=== PATIENT | female | born 1955 | race Caucasian/White ===

== ENCOUNTER 2020-09-03 11:55 | Outpatient (REF) | payer OTHER, SELFPAY ==
--- NOTE | ~2020-09-03 | MM_ITS ---
EXAMINATION: MM SCREENING DIGITAL BREAST TOMOSYNTHESIS, BILATERAL CLINICAL INFORMATION: Screening. Asymptomatic. The lifetime risk of breast cancer based on the Tyrer-Cuzick Model is 14%. COMPARISON: Mammography: 12/27/2018, 05/12/2016 TECHNIQUE: Digital breast tomosynthesis is performed in both the craniocaudal and mediolateral oblique views along with computer-aided detection (CAD). Synthesized 2D images are generated from the tomosynthesis. FINDINGS: There are scattered areas of fibroglandular density (ACR BI-RADS breast composition Category b). There are no significant masses, abnormal calcifications, or other abnormalities. Parenchymal pattern is similar to prior exams. Again, there are scattered bilateral isolated and grouped round, rim, and dermal calcifications. No significant changes. MM/MM tomosynthesis screening BI IMPRESSION: No mammographic evidence of malignancy. ASSESSMENT: BI-RADS 2: Benign RECOMMENDATION: Routine annual mammography screening. This patient's information was entered into a reminder system with a target due date for their next mammogram.
== END 2020-09-03 11:56 | disposition home or self-care (01) ==
LOC: HO.MAMMO 11:55
PROVIDERS: Visit Provider Internal Medicine
DX: Z12.31 Encounter for screening mammogram for malignant neoplasm of breast (principal)
CPT/HCPCS: 77063; 77067

== ENCOUNTER 2021-04-22 09:02 | Outpatient (REF) | payer OTHER, SELFPAY ==
[2021-04-26 13:41] LABS: HPV mRNA E6/E7 rflx Not Detected (Not Detected)
== END 2021-04-22 09:03 | disposition home or self-care (01) ==
LOC: HO.LAB 09:02
PROVIDERS: PCP Internal Medicine; Visit Provider Obstetrics & Gynecology
DX: Z01.419 Encounter for gynecological examination (general) (routine) without abnormal findings (principal); Z11.51 Encounter for screening for human papillomavirus (HPV)
CPT/HCPCS: 87624; 88142

== ENCOUNTER 2022-01-01 07:40 | Outpatient (REF) | payer OTHER, SELFPAY ==
--- NOTE | ~2022-01-01 | MM_ITS ---
EXAMINATION: MM SCREENING DIGITAL BREAST TOMOSYNTHESIS, BILATERAL CLINICAL INFORMATION: Screening. Asymptomatic. The lifetime risk of breast cancer based on the Tyrer-Cuzick Model is 16.5%. COMPARISON: Mammography: September 03, 2020 and studies dating back to November 09, 2011 TECHNIQUE: Digital breast tomosynthesis is performed in both the craniocaudal and mediolateral oblique views along with computer-aided detection (CAD). Synthesized 2D images are generated from the tomosynthesis. FINDINGS: There are scattered areas of fibroglandular density (ACR BI-RADS breast composition Category b). There are no significant masses, abnormal calcifications, or other abnormalities. MM/MM tomosynthesis screening BI IMPRESSION: There are no significant changes from prior study. ASSESSMENT: BI-RADS 1: Negative RECOMMENDATION: Routine annual mammography screening. This patient's information was entered into a reminder system with a target due date for their next mammogram.
== END 2022-01-01 07:41 | disposition home or self-care (01) ==
LOC: HO.MAMMO 07:40
PROVIDERS: Absent Provider Obstetrics & Gynecology; PCP Physician Assistant Medical; Visit Provider Physician Assistant Medical
DX: Z12.31 Encounter for screening mammogram for malignant neoplasm of breast (principal)
CPT/HCPCS: 77063; 77067

== ENCOUNTER 2023-01-07 07:21 | Outpatient (REF) | payer MEDICARE, SELFPAY ==
--- NOTE | ~2023-01-07 | MM_ITS ---
EXAMINATION: MM SCREENING DIGITAL BREAST TOMOSYNTHESIS, BILATERAL CLINICAL INFORMATION: Screening. Asymptomatic. The lifetime risk of breast cancer based on the Tyrer-Cuzick Model is 17%. COMPARISON: Mammography: This study is compared with prior exams dating back to 2019. TECHNIQUE: Digital breast tomosynthesis is performed in both the craniocaudal and mediolateral oblique views along with computer-aided detection (CAD). Synthesized 2D images are generated from the tomosynthesis. FINDINGS: There are scattered areas of fibroglandular density (ACR BI-RADS breast composition Category b). There are no significant masses, abnormal calcifications, or other abnormalities. Scattered benign calcifications present. MM/MM tomosynthesis screening BI IMPRESSION: No mammographic evidence of malignancy. ASSESSMENT: BI-RADS BI-RADS 2 - Benign Findings RECOMMENDATION: Routine annual mammography screening. 1 year F/U This patient's information was entered into a reminder system with a target due date for their next mammogram.
== END 2023-01-07 07:22 | disposition home or self-care (01) ==
LOC: HO.MAMMO 07:21
PROVIDERS: PCP Physician Assistant Medical; Visit Provider Physician Assistant Medical
DX: Z12.31 Encounter for screening mammogram for malignant neoplasm of breast (principal)
CPT/HCPCS: 77063; 77067

== ENCOUNTER → 2023-01-07 07:30 | Outpatient (BNV) | payer MEDICARE, SELFPAY | PROVIDERS: PCP Physician Assistant Medical; Visit Provider Radiology Diagnostic Radiology | DX: Z12.31 Encounter for screening mammogram for malignant neoplasm of breast (principal) | CPT/HCPCS: 77063; 77067 ==

== ENCOUNTER 2023-06-21 07:52 | Outpatient (AMB) | payer MEDICARE, SELFPAY ==
--- NOTE | 2023-06-21 08:04 | MHC.OFFVIS ---
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 No complaints. Last Pap/HPV was negative in 05/01 Last Mammogram was BI-RADS 2 in 01/01 Last Colonoscopy was 3 years ago, the patient is due this year for repeat screening colonoscopy No previous DEXA scan PFS Medical History Acute arthritis Fluttering heart Hypertension Obesity Diabetes type 2, controlled Surgical History (Updated 06/21/23 @ 08:14 by Kari Wang CMA) History of hip surgery History of bilateral knee replacement H/O cervical spine surgery Family History (Updated 06/21/23 @ 08:11 by Kari Wang CMA) Mother Breast CA Diabetes HTN (hypertension) Paternal Grandmother Breast CA Social History (Updated 06/21/23 @ 08:12 by Kari Wang CMA) Household Members: Spouse Housing: House Alcohol intake: never Patient Tobacco Use Status: Current someday Tobacco user Cigarettes Per Day: 10 Years Smoked: 35 Current occupational status: retired Sexually active: Yes Sexual orientation: Straight/Heterosexual Gender identity: Female Female Reproductive History Menstrual Age of Menarche: 15 Total pregnancies: 0 Date of last pap smear: 04/23/21 Date of Mammogram: 01/07/23 Review of Systems Const All systems reviewed & are unremarkable except as noted in HPI and below Card Reports as per HPI Resp Reports as per HPI GI Reports as per HPI and Reports no additional complaints Reports as per HPI Physical Exam Vital Signs: Last Vital Signs BP 142/82 H 06/21/23 08:07 BMI result Body Mass Index 39.4 Const General: cooperative, healthy appearing and comfortable Chest Chest palpation & inspection: normal inspection of the chest and normal palpation of entire chest wall Breast/axilla inspection: normal inspection of the breasts and normal inspection of the axillae Breast/axilla palpation: normal palpation of the breasts, normal palpation of the axillae and no axillary lymphadenopathy Resp Effort & Inspection: normal respiratory effort Auscultation: clear to auscultation bilaterally Percussion: percussion normal Cardio Palpation: normal PMI Rate: regular rate Rhythm: regular rhythm Heart sounds: no murmurs and no rubs Peripheral pulses: Peripheral pulses 2+ throughout GI Inspection: Yes normal to inspection Palpation (GI): Soft to palpation, nontender, no guarding, not rigid and No hepatosplenomegaly present Percussion: Yes normal to percussion Auscultation: normal bowel sounds Rectal Exam - Female: deferred General: Yes bladder normal to palpation External Female Exam: No lesion Speculum Exam - Vagina: normal appearance of the vagina, normal palpation, normal vaginal discharge and not erythematous Speculum Exam - Cervix: normal appearance of the cervix and normal palpation Bimanual exam- vagina & uterus: normal bimanual exam, normal palpation, uterine size normal, bladder normal to palpation, consistency normal and normal palpation Bimanual Exam- Adnexa, other: normal adnexae, no masses and no tenderness Assessment & Plan Assessment & Plan (1) Well woman exam: Code(s): Z01.419 - Encounter for gynecological examination (general) (routine) without abnormal findings Plan: Co testing not indicated since the patient 's age is above 65 with no history of abnormal Pap smears last 25 years. Counseled the patient about the recommended dietary allowance of 1200 mg of Calcium & 800 IU of vitamin D. Instructed the patient to schedule next screening Mammogram in 01/02. Instructed the patient to schedule her next screening colonoscopy narciso. Will order DEXA scan . The patient was instructed to perform monthly self-breast exams and to schedule a 2 week DEXA scan follow-up appointment and an annual exam in a year; All questions answered and the patient verbalized understanding. Orders: Orders XR DEXA axial skeleton Today Z78.0 - Asymptomatic menopausal state Coding Level of Care Code Est Pt Prev Care 40-64y(15735) Diagnoses Well woman exam Z01.419
[2023-06-21 08:07] VITALS: BP 142/82; BMI 39.4
== END 2023-06-21 08:27 | disposition home or self-care (01) ==
PROVIDERS: Visit Provider Obstetrics & Gynecology
DX: Z01.419 Encounter for gynecological examination (general) (routine) without abnormal findings (principal)
CPT/HCPCS: 99397

== ENCOUNTER → 2023-06-21 07:52 | Outpatient (BNVA) | payer OTHER, SELFPAY | PROVIDERS: Visit Provider Obstetrics & Gynecology ==

== ENCOUNTER 2023-07-13 09:29 | Outpatient (REF) | payer MEDICARE, SELFPAY ==
--- NOTE | ~2023-07-13 | MM_ITS ---
EXAMINATION: BONE DENSITOMETRY CLINICAL INDICATION: Menopause. COMPARISON: This is the patient's baseline examination. TECHNIQUE: Using a [employer] DXA System (software version: 13.1) manufactured by [employer], dual-energy x-ray absorptiometry was performed of the lumbar spine and left hip. The images are of good technical quality. Summary results are attached. FINDINGS: LEFT FEMUR, NECK: BMD 0.956 g/cm2, Z-score 0.2, T-score -0.6, normal. LEFT FEMUR, TOTAL: BMD 1.122 g/cm2, Z-score 1.3, T-score 0.9, normal. AP SPINE L1-L2 (excluding L3 and L4): The data of L1-L4 has been changed to exclude the L3 and L4 vertebral bodies, because degenerative sclerosis at these levels may cause overestimation of lumbar spine density. BMD 1.247 g/cm2, Z-score 1.1, T-score 0.7, normal. IDENTIFIED RISK FACTORS: Menopause, tobacco use (current smoker). HISTORY OF FRACTURE: None listed. MEDICATIONS: Multivitamin, vitamin D, bisphosphonate. MM/XR DEXA axial skeleton IMPRESSION: 1. DIAGNOSIS: Normal bone density based on the lowest T-score value of -0.6 in the femoral neck applying World Health Organization criteria. 2. 10-YEAR FRACTURE RISK PREDICTION, FRAX: According to the guidelines, FRAX calculation should only be performed on patients in the osteopenia bone density category. Therefore, FRAX was not performed on this patient. 3. Treatment Recommendations: NOF guidelines recommend consideration for treatment in postmenopausal women and men age 50 and older presenting with the following: -A hip or vertebral (clinical or morphometric) fracture. -T-score less than or equal to -2.5 at the femoral neck or spine after appropriate evaluation to exclude secondary causes. -Low bone mass at the hip or spine and a 10-year fracture probability by FRAX of greater than or equal to 3% for hip fracture or greater than or equal to 20% for major osteoporotic fracture based on the [place] adapted WHO algorithm. 4. Other Recommendations: All treatment decisions require clinical judgment and consideration of individual patient factors, including patient preferences, comorbidities, previous drug use, risk factors not captured in the FRAX model (e.g. frailty, falls, vitamin D deficiency, increased bone turnover, interval significant decline in bone density) and possible under or overestimation of fracture risk by FRAX. FUTURE SCAN RECOMMENDATION: People with diagnosed cases of osteoporosis or at high risk for fracture should have regular bone mineral density tests. For patients eligible for Medicare, routine testing is allowed once every 2 years. The testing frequency can be increased to one year for patients who have rapidly progressing disease, those who are receiving or discontinuing medical therapy to restore bone mass, or have additional risk factors.
== END 2023-07-13 09:30 | disposition home or self-care (01) ==
LOC: HO.MAMMO 09:29
PROVIDERS: PCP Physician Assistant Medical; Visit Provider Obstetrics & Gynecology
DX: Z13.820 Encounter for screening for osteoporosis (principal); Z78.0 Asymptomatic menopausal state
CPT/HCPCS: 77080

== ENCOUNTER 2023-08-11 09:29 | Outpatient (AMB) | payer MEDICARE, SELFPAY ==
--- NOTE | 2023-08-11 09:30 | MHC.OFFVIS ---
Intake Vital Signs 08/11/23 09:32 Height 5 ft 5 in Weight 235 lb 14.314 oz BMI 39.3 BP 146/80 H Intake Visit Reasons: DEXA follow up Allergies No Known Allergies Allergy (Verified 06/21/23 08:08) HPI HPI Comments History of Present Illness Details The patient is presenting for follow up regarding DEXA scan results. T score @ spine and femoral Neck respectively were=NA due to degenerative disease /-0.6 and 10 year FRAX risk = was not calculated PFSH Medical History Acute arthritis Fluttering heart Hypertension Obesity Diabetes type 2, controlled Surgical History History of hip surgery History of bilateral knee replacement H/O cervical spine surgery Family History Mother Breast CA Diabetes HTN (hypertension) Paternal Grandmother Breast CA Social History Household Members: Spouse Housing: House Alcohol intake: never Patient Tobacco Use Status: Current someday Tobacco user Cigarettes Per Day: 10 Years Smoked: 35 Current occupational status: retired Sexual orientation: Straight/Heterosexual Gender identity: Female Female Reproductive History Menstrual Age of Menarche: 15 Review of Systems Const All systems reviewed & are unremarkable except as noted in HPI and below Reports as per HPI and Reports no additional complaints GI Reports no additional complaints Reports no additional complaints Physical Exam Vital Signs: Last Vital Signs BP 146/80 H 08/11/23 09:32 BMI result Body Mass Index 39.3 Assessment & Plan Assessment & Plan (1) Osteopenia: Code(s): M85.80 - Other specified disorders of bone density and structure, unspecified site Plan: Discussed with the patient the DEXA results showed no evidence of osteoporosis although at the spine level due to degenerative disease T-score was not calculated therefore the FRAX risk was not computer. Discussed with the patient all the options for osteoporosis prevention including lifestyle modifications including Ca+D supplements 1200 mg po qd/800 MIU, Weight bearing exercises and proteine supplements. The patient verbalized understanding and agreed plan will repeat DEXA in 2 years. Coding Level of Care Code Est Pt Level 3 (02366) Diagnoses Osteopenia M85.80
[2023-08-11 09:32] VITALS: BP 146/80; BMI 39.3
== END 2023-08-11 09:53 | disposition home or self-care (01) ==
PROVIDERS: PCP Physician Assistant Medical; Visit Provider Obstetrics & Gynecology
DX: M85.80 Other specified disorders of bone density and structure, unspecified site (principal)
CPT/HCPCS: 99213

== ENCOUNTER → 2023-08-11 09:29 | Outpatient (BNVA) | payer MEDICARE, SELFPAY | PROVIDERS: PCP Physician Assistant Medical; Visit Provider Obstetrics & Gynecology | DX: M85.80 Other specified disorders of bone density and structure, unspecified site (principal) | CPT/HCPCS: 99212 ==

== ENCOUNTER 2023-10-04 13:13 | Outpatient (AMB) | payer MEDICARE, SELFPAY ==
[2023-10-04 13:28] VITALS: PULSE 91; O2SAT 95; BMI 40.1
--- NOTE | 2023-10-04 13:28 | MHC.OFFVIS ---
Intake Vital Signs 10/04/23 13:28 Height 5 ft 5 in Weight 241 lb BMI 40.1 Pulse 91 Pulse Source Pulse Oximeter Pulse Oximetry (%) 95 Oxygen Delivery Method Room Air Intake Visit Reasons: Cough Bed Setter Required: No Allergies No Known Allergies Allergy (Verified 10/04/23 13:30) HPI HPI Comments History of Present Illness Details The patient is here for pulmonary evaluation. 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 The patient states that she was in her usual state health until back in 2019 when she was exposed to a viral syndrome. She felt like she had the initial COVID-19 although was not diagnosed that time. The patient has 2 that still continued to have a productive cough shortness of breath. Moderate severity. She has tried multiple inhalers without any significant improvement. Denies any other exposures. She is participating in the lung cancer screening program. We did look at her last CT scan those done back in 2022. The patient has multiple pulmonary nodules appear to be benign appearing subcentimeter in size. Does have some minimal emphysema and some evidence of chronic bronchitis and mucus within the airways. Explained to her she has chronic bronchitis and likely precipitated by the viral syndrome and by her years of smoking. She has quit in the past. Although she has not ready to quit right now. Also to note the patient did have pulmonary function studies which I personally reviewed no evidence of any obstruction appreciated her PFT though although she does have evidence of chronic bronchitis and COPD. [facility] Medical History (Updated 10/05/23 @ 08:20 by Lance Hughes MD) Tobacco dependence Pulmonary nodules COPD (chronic obstructive pulmonary disease) Chronic bronchitis Acute arthritis Fluttering heart Hypertension Obesity Diabetes type 2, controlled Surgical History History of hip surgery History of bilateral knee replacement H/O cervical spine surgery Family History Mother Breast CA Diabetes HTN (hypertension) Paternal Grandmother Breast CA Social History Household Members: Spouse Housing: House Alcohol intake: never Patient Tobacco Use Status: Current someday Tobacco user Cigarettes Per Day: 10 Years Smoked: 35 Current occupational status: retired Sexual orientation: Straight/Heterosexual Gender identity: Female Female Reproductive History Menstrual Age of Menarche: 15 Review of Systems Const Denies fever(s) Eyes Reports no additional complaints ENT Reports nasal congestion Card Denies chest pain Resp Reports change in phlegm color, Reports chest congestion, Reports cough and Denies hemoptysis GI Denies abdominal pain Musc Reports no additional complaints Skin/Breast Denies rash Neuro Reports no additional complaints Eddie/Lymph Denies easy bruising Physical Exam Vital Signs: Last Vital Signs Pulse 91 10/04/23 13:28 Pulse Ox 95 10/04/23 13:28 Oxygen Delivery Method Room Air 10/04/23 13:28 BMI result Body Mass Index 40.1 Const General: comfortable HEENT Head: Yes normocephalic Neck Neck: Yes supple Chest Chest palpation & inspection: normal inspection of the chest Resp Effort & Inspection: normal respiratory effort and prolonged expiratory phase Auscultation: rhonchi Cardio Heart sounds: S1 normal heart sound present and S2 normal heart sound present GI Palpation (GI): Soft to palpation Skin General skin exam: no rashes or lesions noted Extrem General: Yes no clubbing, cyanosis or edema Assessment & Plan Assessment & Plan (1) COPD (chronic obstructive pulmonary disease): Code(s): J44.9 - Chronic obstructive pulmonary disease, unspecified Qualifiers: COPD type: chronic bronchitis Chronic bronchitis type: mixed simple and mucopurulent Qualified Code(s): J41.8 - Mixed simple and mucopurulent chronic bronchitis (2) Chronic bronchitis: Code(s): J42 - Unspecified chronic bronchitis Qualifiers: Chronic bronchitis type: mixed simple and mucopurulent Qualified Code(s): J41.8 - Mixed simple and mucopurulent chronic bronchitis (3) Pulmonary nodules: Code(s): R91.8 - Other nonspecific abnormal finding of lung field (4) Tobacco dependence: Code(s): F17.200 - Nicotine dependence, unspecified, uncomplicated Plan start nebulizer BID with albuterol CPT with acapella valve start Azithromycin MWF x 6-8 weeks, then stop [place]CT [place] [facility] [place] Sputum culture F/U 2-3 months Orders: Orders Sputum Cult + Gram stain 10/04/23 J42 - Unspecified chronic bronchitis Medications: New azithromycin Take 1 tablet on Wednesday/Wednesday/Wednesday 250 mg PO 3XW 28 days 12 tabs 1RF K21.9 - Gastro-esophageal reflux disease without esophagitis albuterol sulfate 2.5 mg (3 mL) inhalation Q6H 30 days 180 mL 11RF J44.9 - Chronic obstructive pulmonary disease, unspecified Coding Level of Care Code New Pt Level 4 (18847) Diagnoses Mixed simple and mucopurulent chronic bronchitis J41.8 COPD type: chronic bronchitis Chronic bronchitis type: mixed simple and mucopurulent Mixed simple and mucopurulent chronic bronchitis J41.8 Chronic bronchitis type: mixed simple and mucopurulent Pulmonary nodules R91.8 Tobacco dependence F17.200 Time Spent (min) 40
== END 2023-10-04 14:12 | disposition home or self-care (01) ==
PROVIDERS: PCP Nurse Practitioner; Visit Provider Hospitalist
DX: J41.8 Mixed simple and mucopurulent chronic bronchitis (principal); R91.8 Other nonspecific abnormal finding of lung field; F17.200 Nicotine dependence, unspecified, uncomplicated
CPT/HCPCS: 99204

== ENCOUNTER → 2023-10-04 13:13 | Outpatient (BNVA) | payer MEDICARE, SELFPAY | PROVIDERS: PCP Physician Assistant Medical; Visit Provider Hospitalist | DX: J41.8 Mixed simple and mucopurulent chronic bronchitis (principal); R91.8 Other nonspecific abnormal finding of lung field; F17.210 Nicotine dependence, cigarettes, uncomplicated | CPT/HCPCS: 99202 ==

== ENCOUNTER 2024-01-10 07:31 | Outpatient (REF) | payer MEDICARE, SELFPAY | END 2024-01-10 07:32 | disposition home or self-care (01) | LOC: HO.MAMMO 07:31 | PROVIDERS: PCP Nurse Practitioner; Visit Provider Nurse Practitioner | DX: Z12.31 Encounter for screening mammogram for malignant neoplasm of breast (principal) | CPT/HCPCS: 77063; 77067; 99212 ==

== ENCOUNTER → 2024-01-10 07:45 | Outpatient (BNV) | payer MEDICARE, SELFPAY | PROVIDERS: PCP Nurse Practitioner; Visit Provider Radiology Diagnostic Radiology | DX: Z12.31 Encounter for screening mammogram for malignant neoplasm of breast (principal) | CPT/HCPCS: 77063; 77067 ==

== ENCOUNTER 2024-01-10 08:38 | Outpatient (AMB) | payer MEDICARE, SELFPAY ==
[2024-01-10 08:52] VITALS: PULSE 84; O2SAT 96; BMI 39.9
--- NOTE | 2024-01-10 08:52 | MHC.OFFVIS ---
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 The patient states that she was in her usual state health until back in 2019 when she was exposed to a viral syndrome. She felt like she had the initial COVID-19 although was not diagnosed that time. The patient has 2 that still continued to have a productive cough shortness of breath. Moderate severity. She has tried multiple inhalers without any significant improvement. Denies any other exposures. She is participating in the lung cancer screening program. We did look at her last CT scan those done back in 2022. The patient has multiple pulmonary nodules appear to be benign appearing subcentimeter in size. Does have some minimal emphysema and some evidence of chronic bronchitis and mucus within the airways. Explained to her she has chronic bronchitis and likely precipitated by the viral syndrome and by her years of smoking. She has quit in the past. Although she has not ready to quit right now. Also to note the patient did have pulmonary function studies which I personally reviewed no evidence of any obstruction appreciated her PFT though although she does have evidence of chronic bronchitis and COPD. 01/10/2024 the patient is here for a pulmonary follow-up visit. The patient overall has been doing fairly well. She does complain of productive cough. She did take the azithromycin for a period of time but she had to stop because of significant diarrhea. Therefore she continues to have a chest congestion. She is also using a nebulizer. She also has a rescue inhaler. The patient is agreeable to starting Wixela. She can just use it once a day. She not be too expensive. She is concerned about the cough. In addition to that she is wondering about using Mucinex for chronic bronchitis. I did suggest that she can try Daliresp. We can start her small dose to see if the GI symptoms are not too bad and then she can develops intolerance. The patient is also working her smoking. She is cutting down. She has participating in the lung cancer screening program which is due for her sometime in the spring at [facility]. [facility] Medical History (Updated 10/05/23 @ 08:20 by Lance Hughes MD) Tobacco dependence Pulmonary nodules COPD (chronic obstructive pulmonary disease) Chronic bronchitis Acute arthritis Fluttering heart Hypertension Obesity Diabetes type 2, controlled Surgical History History of hip surgery History of bilateral knee replacement H/O cervical spine surgery Family History Mother Breast CA Diabetes HTN (hypertension) Paternal Grandmother Breast CA Social History Household Members: Spouse Housing: House Alcohol intake: never Patient Tobacco Use Status: Current someday Tobacco user Cigarettes Per Day: 10 Years Smoked: 35 Current occupational status: retired Sexual orientation: Straight/Heterosexual Gender identity: Female Female Reproductive History Menstrual Age of Menarche: 15 Review of Systems Const Denies fever(s) Eyes Reports no additional complaints ENT Reports nasal congestion Card Denies chest pain Resp Reports change in phlegm color, Reports chest congestion, Reports cough and Denies hemoptysis GI Denies abdominal pain Musc Reports no additional complaints Skin/Breast Denies rash Neuro Reports no additional complaints Eddie/Lymph Denies easy bruising Physical Exam Vital Signs: Last Vital Signs Pulse 84 01/10/24 08:52 Pulse Ox 96 01/10/24 08:52 Oxygen Delivery Method Room Air 01/10/24 08:52 BMI result Body Mass Index 39.9 Const General: comfortable HEENT Head: Yes normocephalic Neck Neck: Yes supple Chest Chest palpation & inspection: normal inspection of the chest Resp Effort & Inspection: normal respiratory effort and prolonged expiratory phase Auscultation: no rhonchi and diminished lung sounds Cardio Heart sounds: S1 normal heart sound present and S2 normal heart sound present GI Palpation (GI): Soft to palpation Skin General skin exam: no rashes or lesions noted Extrem General: Yes no clubbing, cyanosis or edema Assessment & Plan Assessment & Plan (1) COPD (chronic obstructive pulmonary disease): Code(s): J44.9 - Chronic obstructive pulmonary disease, unspecified Category: Medical Qualifiers: COPD type: chronic bronchitis Chronic bronchitis type: mixed simple and mucopurulent Qualified Code(s): J41.8 - Mixed simple and mucopurulent chronic bronchitis (2) Chronic bronchitis: Code(s): J42 - Unspecified chronic bronchitis Category: Medical Qualifiers: Chronic bronchitis type: mixed simple and mucopurulent Qualified Code(s): J41.8 - Mixed simple and mucopurulent chronic bronchitis (3) Pulmonary nodules: Code(s): R91.8 - Other nonspecific abnormal finding of lung field Category: Medical (4) Tobacco dependence: Code(s): F17.200 - Nicotine dependence, unspecified, uncomplicated Category: Medical Plan nebulizer BID with albuterol CPT with acapella valve stopped Azithromycin MWF due to adverse effects start Daliresp start Wixela daily *rinse* Mucinex OTC as needed LDCT at [facility] [place] spring 2024 F/U 4-6 months Medications: New roflumilast (Daliresp) 250 mcg PO DAILY 30 days 30 tabs 11RF J44.9 - Chronic obstructive pulmonary disease, unspecified fluticasone propion-salmeterol 250-50 mcg/dose (Wixela Inhub) 1 inh inhalation Q12H 90 days 3 ea 3RF Coding Level of Care Code Est Pt Level 4 (82104) Diagnoses Mixed simple and mucopurulent chronic bronchitis J41.8 COPD type: chronic bronchitis Chronic bronchitis type: mixed simple and mucopurulent Mixed simple and mucopurulent chronic bronchitis J41.8 Chronic bronchitis type: mixed simple and mucopurulent Pulmonary nodules R91.8 Tobacco dependence F17.200 Time Spent (min) 16
== END 2024-01-10 09:34 | disposition home or self-care (01) ==
PROVIDERS: PCP Nurse Practitioner; Visit Provider Hospitalist
DX: J41.8 Mixed simple and mucopurulent chronic bronchitis (principal); R91.8 Other nonspecific abnormal finding of lung field; F17.200 Nicotine dependence, unspecified, uncomplicated
CPT/HCPCS: 99214

== ENCOUNTER 2024-06-27 07:56 | Outpatient (AMB) | payer MEDICARE, SELFPAY ==
--- OUTSIDE RECORDS SUMMARY | 2024-06-27 07:59 | XMS_ITS | Continuity of Care Document ---
Author Organization [facility] Address [address] [place] [address]- Care Team Providers Care Manager Ems Name Role Phone Yuriy GOMEZ, Tramaine Anthony Primary Care Physician Encounter [facility] [place] Date(s): 05/10/24 - 06/09/24 [facility] [address] [place] [address]- Attending Physician: Rhea Barrett Admitting Physician: Rhea Barrett Referring Physician: AdmtrRhea Encounter Type: Triage Allergies, Adverse Reactions, Alerts No Known Allergies Medications acetaminophen 325 mg oral tablet 650 mg, By Mouth, Every 6 hours, May take OTC not to exceed 3000 mg/day, Refills 0, Maintenance, 04/06/23 9:36:00 AM EDT, Partial fill upon patient request if the prescription is for a schedule II opioid drug. Start Date: 04/06/23 Status: Ordered Repeat number: 1 acetaminophen-hydrocodone 325 mg-10 mg oral tablet 1 tablet, By Mouth, Every 6 hours, PRN as needed for pain, for 7 days, # 28 tablet, 0 Refills, Acute 06/14/24 3:47:00 PM EST, 06/07/24 3:47:00 PM EST, Tablet, [id number], Partial fill upon patient request if the prescription is for a schedule II opioid drug., 1 tablet By Mouth Every 6 hours,x7 days,PRN:as needed for pain, 165.1, cm, 06/07/24 14:47:00 EST, Height, 109, kg, 06/07/24 14:47:00EST, Dry Weight Start Date: 06/07/24 Stop Date: 06/14/24 Status: Ordered Quantity: 28.0 Unit: tablet Repeat number: 1 amitriptyline 50 mg oral tablet 1 tablet = 50 mg, By Mouth, Daily at bedtime, 0 Refills, Maintenance, 07/28/22 7:38:00 AM EST, Partial fill upon patient request if the prescription is for a schedule II opioid drug. Start Date: 07/28/22 Status: Ordered Repeat number: 1 atorvastatin 10 mg oral tablet 1 tablet = 10 mg, By Mouth, Daily, TAKE 1 TABLET BY MOUTH EVERYDAY AT BEDTIME Start Date: 10/07/22 Status: Ordered Repeat number: 1 Colace sodium 100 mg oral capsule See Instructions, 1 capsule By Mouth 2 times a day, Refills 0, Maintenance, 04/05/23 10:38:00 AM EDT, Instructions Replace Required Details, Partial fill upon patient request if the prescription is for a schedule II opioid drug. Start Date: 04/05/23 Status: Ordered Repeat number: 1 lidocaine 4% patch Topically, Daily, 0 Refills, Maintenance, 04/20/24 9:05:00 AM EDT, Partial fill upon patient request if the prescription is for a schedule II opioid drug. Start Date: 04/20/24 Status: Ordered Repeat number: 1 lisinopril 10 mg oral tablet 10 mg, 1, tablet, By Mouth, Daily, # 30 tablet, Refills 0, Maintenance, 04/26/18 9:14:40 AM EDT Start Date: 04/26/18 Status: Ordered Quantity: 30.0 Unit: tablet Repeat number: 1 melatonin 10 mg oral capsule 1 capsule = 10 mg, By Mouth, Daily at bedtime, 0 Refills, Maintenance, 04/05/23 10:39:00 AM EDT, Partial fill upon patient request if the prescription is for a schedule II opioid drug. Start Date: 04/05/23 Status: Ordered Repeat number: 1 MetFORMIN (Eqv-Glucophage XR) 500 mg oral tablet, extended release 0 Refills, Maintenance, 04/20/24 9:02:00 AM EDT, Partial fill upon patient request if the prescription is for a schedule II opioid drug. Start Date: 04/20/24 Status: Ordered Repeat number: 1 metoprolol 100 mg oral tablet 100 mg, 1, tablet, By Mouth, Daily, Refills 0, Maintenance, 04/26/18 9:11:00 AM EDT Start Date: 04/26/18 Status: Ordered Repeat number: 1 omeprazole 20 mg oral enteric coated capsule 1 capsule = 20 mg, By Mouth, 2 times a day, 0 Refills, Maintenance, 10/07/22 7:50:00 AM EDT, Partialfill upon patient request if the prescription is for a schedule II opioid drug. Start Date: 10/07/22 Status: Ordered Repeat number: 1 Probiotic Formula By Mouth, Daily, 0 Refills, Maintenance, 04/05/23 10:38:00 AM EDT, Partial fill upon patient requestif the prescription is for a schedule II opioid drug. Start Date: 04/05/23 Status: Ordered Repeat number: 1 tiZANidine 2 mg oral tablet 2 mg, 1, tablet, By Mouth, Every 8 hours, # 42 tablet, Refills 0, Tot. Refills 0, Maintenance, 05/24/24 12:13:00 PM EST, Route to Pharmacy Electronically, [facility], Partial fill upon patient request if the prescription is for a schedule II opioid drug., 165.1, cm, 05/10/24 14:51:00 EDT, Height, 107.8, kg, 05/24/24 6:23:00 EST, Dry Weight Start Date: 05/24/24 Stop Date: 06/07/24 Status: Ordered Quantity: 42.0 Unit: tablet Repeat number: 1 Trulicity Pen 0.75 mg/0.5 mL subcutaneous solution = 0.75 mg, Subcutaneous Infusion, 0 Refills, Maintenance, 07/02/22 9:21:00 AM EST, Partial fill upon patient request if the prescription is for a schedule II opioid drug. Start Date: 07/02/22 Status: Ordered Repeat number: 1 Tums 500 mg oral tablet, chewable 500 mg, 1, tablet, Chew, Daily at bedtime, # 60 tablet, Refills 0, Maintenance, 04/05/23 10:39:00 AMEDT, Partial fill upon patient request if the prescription is for a schedule II opioid drug. Start Date: 04/05/23 Status: Ordered Quantity: 60.0 Unit: tablet Repeat number: 1 Vitamin D3 2000 intl units oral capsule 1 capsule = 2,000 International_Units, By Mouth, Daily, 0 Refills, Maintenance, 10/03/11 5:37:31 PM EDT Start Date: 10/03/11 Status: Ordered Repeat number: 1 Wixela Inhub 250 mcg-50 mcg inhalation powder 1 inhalation, Inhalation, 2 times a day, rinse mouth and throat after use, 0 Refills, Maintenance, 05/10/24 3:11:00 PM EDT, Powder, Partial fill upon patient request if the prescription is for a schedule II opioid drug. 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 Obese class II Confirmed Active Social History Social History Type Response Smoking Status 5-9 cigarettes (betw een 1/4 to 1/2 pack)/day in last 30 days entered on: 05/10/24 Sex Sex Representation Female (finding) Patient Care team information Care Team Personnel Name: Vin CHAPA, Ryan Position: [facility] RN Member Role: Primary Care Nurse Name: Yuriy GOMEZ, Tramaine Anthony Position: [facility] Outreach Member Role: PCP Address: [address] [place] [address] [address] [place] [address] Telecom: Care Team Related Persons Name: ERIC DIAZ Insurance Providers Guarantor name: JANEL DIAZ Health Plan Information #: 1 Payer: BENJI Member Number: NA Policy Number: NA Group Number: [id number]
--- OUTSIDE RECORDS SUMMARY | 2024-06-27 07:59 | XMS_ITS ---
[facility] Address [address] [facility] [place] [address] Care Team Providers Care Estate [employer] Trust Tax Principal Name Role Phone Tramaine Yan Primary Care Provider Manju [place] Unavailable [phone] Allergies No Known Allergies REASON FOR VISIT At Risk Footcare, Skin problem(s) Medications Medication SIG (Take, Route, Frequency, Duration) Notes Start Date End Date Status Omeprazole 20 MG TAKE 1 CAPSULE BY MOUTH TWICE A DAY Oral for 90 Days Active metFORMIN HCl 500 MG 1 tablet with a paradise l Orally Once a day Not-Taking traMADol HCl 50 MG 1 tablet as needed Orally Once a day Not-Taking Extra Depth Orthopedic Shoes (1 Pair) with Customized Heat Molded Multidensity Innersoles (3 Pair) as directed Dx: NIDDM/Polyneuropathy (E11.42), Hammertoe Foot Deformity (M20.41,M20.42), Preulcerative Skin Lesion(s) (L85.1 03/02/2023 Active Lisinopril 10 MG Oral for 90 Days Active Trulicity 0.75 MG/0.5ML INJECT 0.5 ML (0.75 MG) SUBCUTANEOUSLY EVERY 7 DAYS Subcutaneous for 28 Days Active Atorvastatin Calcium 10 MG TAKE 1 TABLET BY MOUTH EVERYDAY AT BEDTIME Oral for 30 Days Active Naproxen 440mg 2x per day Active Metoprolol Succinate ER 100 MG TAKE 1 TABLET BY MOUTH EVERY DAY Oral for 90 Days Active Amitriptyline HCl 50 MG TAKE 1 TABLET BY MOUTH AT BEDTIME Oral for 90 Days Active Colace 100 MG 1 capsule as needed Orally Once a day Active albuterol Active Multivitamin Active Probiotic Active Vitamin D Active Lidocaine 5 % 1 patch remove after 12 hours Externally Once a day Not-Taking Wixela Inhub Active metFORMIN HCl 500 MG 1 tablet with a paradise l Orally Once a day Active Roflumilast Not-Taki ng Tylenol Active Social History Tobacco Use: Social History Observation Description Date Details (start date - stop date) Current Smoker NA - NA Tobacco Use/Smoking Question Answer Notes Are you a: current smoker How often do you smoke cigarettes? every day How many cigarettes a day do you smoke? 6-10 Tobacco use other than smoking: Question Answer Notes Are you an other tobacco user? No Vital Signs Height 5ft5in in 06/13/2024 Weight 240 lbs 06/13/2024 BMI 39.93 kg/m2 06/13/2024 Blood pressure systolic 124 mm Hg 06/13/20 24 Blood pressure diastolic 80 mm Hg 024 Encounters Encounter Location Date Provider Diagnosis [facility] [address] [address] 06/13/2024 Manju Hodges Xerosis of skin L85. 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 Assessments Encounter Date Diagnosis (ICD Code) Assessment Notes Treatment Notes Treatment Clinical Notes Section Notes 06/13/2024 Xerosis of skin (ICD-10 - L85.3) 06/13/2024 Tinea unguium (ICD-10 - B35.1) 06/13/2024 Type 2 diabetes mellitus with polyneuropathy (ICD-10 - E11.42) Plan Of Treatment Next Appt Details Follow Up: 2 Months, Reason: Provider Name:Manju gray, 08/23/2024 09:30:00 AM, [address] [place], [address], Procedure Notes * Category Sub-Category Detail Notes Debride Nail 6-10 Nail debridement Performance o f this nail treatment by a nonprofessional would put this patients foot and overall health at risk. Therefore, debridement to affected nail(s), as described in exam, was performed extensively to reduce/remove overall nail length, girth, thickness, subungual debris, and necrotic tissue, by manual and/or electrical means through the use of a nail nipper and/or dremel-type sample tester grinder, to a more viable healthy nail plate or bed tissue 6-10 nails in total. Silver nitrate was used for any petechial bleeding as necessary. Definitive antifungal treatment options, both pharmaceutical and surgical, have been reviewed and discussed with the patient. The patient solely prefers the use of intermittent/as needed professional debridement services for their nail condition and understands the need for additional periodic treatments to maintain effectiveness in symptomatic relief - 96918 Keratoma Treatment Parring or Cutting o f Benign Hyperkeratotic Lesion(s) (-57) More than 4 Lesions - The Benign hyperkeratotic lesions, ( 8) in total, locations as stated and described in exam, were pared, and/or cut utilizing a sterile 15 blade, tissue nippers, and/or power dremel instrumentation - 47576 Progress Notes * Rand DIAZ ADOB: [birth year] (68 yo F)Acc No.[id number]:06/13/2024 Progress Note Patient:?Rand DIAZ Provider:?Manju Hodges DPM :1955???Age:68 Y???Sex:Female D ate:06/13/2024 Address:[address] [place] [address], [place], [id number] Pcp:Tramaine Yan Subjective: * Chief Complaints: * ???At Risk FootcareSkin prob ashwini(s) * HPI: ???At Risk footcare:?Pt States Last PCP Visit:?Date?03/12/2024 ???Skin problems:?Location:?B/L .?Duration:?several months.?Course:?Pt had back surgery and can't bend to lotion her feet for last month.?Treatments:?medication ( Gold Rosario).? * ROS:?General/Constitutional:?Nausea?denies.?Vomiting?denies.?Hunger Thirst?denies.?Loss appetite?denies.?Chills?denies.?Fatigue?denies.?Fever?denies.?Night Sweats?denies.?Unexplained weight loss?denies.?Unexplained weight gain?denies.?HEENTM:?Dentures?denies.?Dizziness?denies.?Glasses/contacts?admits.?Retinopathy?den ies.?Blurred/double vision?denies.?TMJ?denies.?Discharge/drainage?denies.?Implants?denies.?Sore throat?denies.?Dental implants?denies.?Hard of hearing ?denies.?Difficulty chewing/swallowing/speaking?denies.?Nose bleeds?denies.?Sore mouth?denies.?Respiratory:?On O xygen?denies.?Pneumonia/pleurisy?denies.?Bronchitis?denies.?Emphysema?denies.?Co ughing?denies.?Cough blood?denies.?Shortness of breath?denies.?Wheezing?denies.?Cardiovascular:?Pacemaker?denies.?MVP?denies.?WPW?denies.?CHF?denies.?Heart attack?denies.?Septal defect?denies.?Rapid beat?denies.?Chest pain ?denies.?Atrial Fib.?denies.?Murmur/Palpitations?denies.?Gastrointestinal:?Hemorrhoids?admits.?Stomach/Abdominal pain?denies.?Dark blood stool?denies.?Irritable bowel ?denies.?Constipation?denies.?Diarrhea?denies.?Hematology:?Swelling?denies.?Clots?denies.?Varicose Veins?denies.?Bruising?denies.?Bleeding problem?denies.?Genitourinary:?Blood urine?denies.?Frequent/Painfu/urination/bladder control?denies.?Kidney stones?denies.?Infection (UTI)?denies.?Nephropathy?denies.?sex trans dis (STD)?denies.?Prostate?denies.?Musculoskeletal:?Hammertoes?denies.?Bunions?denies.?Back Pain?admits.?Muscle Cramps/ Resting?denies.?Muscle cramps / walking?denies.?Generalized aches and pains?admits.?Weakness?admits.?Integ.:?Long?denies.?Scars?admits.?Corns/calluses?denies.?Ingrown nails?admits.?Painful nails?admits.?Open Sores?denies.?Rashes?denies.?Neurologic:?Difficulty sleeping?denies.?Brain disorder?denies.?Numbness?admits.?Balance t rouble?denies.?Confusion?denies.?Fainting/blackouts?denies.?Tingling?admits.?Omega mors?denies.? * Medical History:? * Surgical History:?knee repla cement, bilateral 2005, 2007cervical spine 03/27/2013gall bladder removal 04/29/2018hip replacement 04/06/2023spine surgery 05/24/24 * Hospitalization/Major Diagno stic Procedure:?Denies Past Hospitalization * Family History:?Mother: angel degroot, diagnosed with Family history of arthritis, Other malignant neoplasm of unspecified site, Diabetic - NIDDM, Unspecified essential hypertension.?Father: .?Paternal Grand Mother: diagnosed with Diabetic - NIDDM, Unspecified cerebral artery occlusion with cerebral infarction.?Maternal Grand Mother: diagnosed with Unspecified essential hypertension, Unspecified heart disease.? * Social History:?Tobacco Use:?Tobacco Use/Smoking?Are you a:?current smoker ?How often do you smoke cigarettes??every day ?How many cigarettes a day do you smoke??6-10 ?Tobacco use other than smoking?Are you an other tobacco user??No * Medications:?TakingWixela In hub Tylenol metFORMIN HCl 500 MG Tablet 1 tablet with a meal Orally Once a day albuterol Vitamin D Probiotic Multivitamin Colace 100 MG Capsule 1 capsule as needed Orally Once a day Naproxen , Notes to Pharmacist: 440mg 2x per dayAtorvastatin Calcium 10 MG Tablet TAKE 1 TABLET BY MOUTH EVERYDAY AT BEDTIME Oral Trulicity 0.75 MG/0.5ML Solution Pen-injector INJECT 0.5 ML (0.75 MG) SUBCUTANEOUSLY EVERY 7 DAYS Subcutaneous Amitriptyline HCl 50 MG Tablet TAKE 1 TABLET BY MOUTH AT BEDTIME Oral Metoprolol Succinate ER 100 MG Tablet Extended Release 24 Hour TAKE 1 TABLET BY MOUTH EVERY DAY Oral Omeprazole 20 MG Capsule Delayed Release TAKE 1 CAPSULE BY MOUTH TWICE A DAY Oral Lisinopril 10 MG Tablet Oral Extra Depth Orthopedic Shoes (1 Pair) with Customized Heat Molded Multidensity Innersoles (3 Pair) as directed Dx: NIDDM/Polyneuropathy (E11.42), Hammertoe Foot Deformity (M20.41,M20.42), Preulcerative Skin Lesion(s) (L85.1 Taking Wixela Inhub Taking Tylenol Taking metFORMIN HCl 500 MG Tablet 1 tablet with a meal Orally Once a day Taking albuterol Taking Vitamin D Taking Probiotic Taking Multivitamin Taking Colace 100 MG Capsule 1 capsule as needed Orally Once a day Taking Naproxen , Notes to Pharmacist: 440mg 2x per dayTaking Atorvastatin Calcium 10 MG Tablet TAKE 1 TABLET BY MOUTH EVERYDAY AT BEDTIME Oral Taking Trulicity 0.75 MG/0.5ML Solution Pen- injector INJECT 0.5 ML (0.75 MG) SUBCUTANEOUSLY EVERY 7 DAYS Subcutaneous Taking Amitriptyline HCl 50 MG Tablet TAKE 1 TABLET BY MOUTH AT BEDTIME Oral Taking Metoprolol Succinate ER 100 MG Tablet Extended Release 24 Hour TAKE 1 TABLET BY MOUTH EVERY DAY Oral Taking Omeprazole 20 MG Capsule Delayed Release TAKE 1 CAPSULE BY MOUTH TWICE A DAY Oral Taking Lisinopril 10 MG Tablet Oral Taking Extra Depth Orthopedic Shoes (1 Pair) with Customized Heat Molded Multidensity Innersoles (3 Pair) as directed Dx: NIDDM/Polyneuropathy (E11.42), Hammertoe Foot Deformity (M20.41,M20.42), Preulcerative Skin Lesion(s) (L85.1 Not-Taking/PRNLidocaine 5 % Patch 1 patch remove after 12 hours Externally Once a day Roflumilast traMADol HCl 50 MG Tablet 1 tablet as needed Orally Once a day metFORMIN HCl 500 MG Tablet 1 tablet with a meal Orally Once a day Medication List reviewed and reconciled with the patientNot- Taking/PRN Lidocaine 5 % Patch 1 patch remove after 12 hours Externally Once a day Not-Taking/PRN Roflumilast Not-Taking/PRN traMADol HCl 50 MG Tablet 1 tablet as needed Orally Once a day Not-Taking/PRN metFORMIN HCl 500 MG Tablet 1 tablet with a meal Orally Once a day Medication List reviewed and reconciled with the patient * Allergies:?N.K.D.A.yes[Aller gies Verified] Objective: * Vitals:?Ht: 5ft5in, Wt:240, BMI:39.93, Shoe size: 8W, BP:124/80mm Hg, BS: not taken, Ht-cm: 165.1 cm, Wt-k.86 kg. * ???Past Orders: ???Lab:HEMOGLOBIN A1C (GLYCO HEMOGLOBIN) (Order Date - 05/24/2024) (Collection Date & Time - 05/24/2024 08:51 AM) ? Value Reference Range ?TOTAL HEMOGLOBIN (HGBA1C) 6.9 * Examination: ???Ophthalmology Referral: ?DIABETES EYE EXAM?Neurological: ?SENSORY:? Neurological exam demonstrates, reduced light touch sensation, reduced sharp/dull pin prick discrimination , B/L, 5.07 monofilament test performed at plantar aspects of 5 varied sites per foot shows sensation, reduced , B/L.?Nails: ?NAILS are:?Elongated, overgrown, dystrophic, lytic, greater than 3mm thick, discolored and friable with crumbly malodorous subungual debris 1-5 B/L.?Dermatologic: ?SKIN FINDINGS:? Skin exam reveals Keratotic lesion(s) located at Medial plantar TA T4 T5 T9 SUB MTH (s) 1 5 Heel(s) B/L , Skin shows?sign(s) of, dryness, scaling, in a stocking fashion, no fissure(s) present, B/L.?Vascular: ?DP PULSES(B):? 1/4, B/L.?PT PULSES(B):? 1/4, B/L.?CAPILLARY FILL TIME:?immediate, all digits, B/L.?TROPHIC CONDITION-TEXTURE/ELASTICITY/TURGOR/HAIR GROWTH(B):? decreased.?TEMPERTURE GRADIENT(C):?normal, warm to cool, proximal to distal, B/L, B/L.?PIGMENTATION:? pale, B/L.?EDEMA(C):? 2/4 B/L.?Orthopedic: ?MUSCLE STRENGTH:?5/5 all groups in a symmetrical fashion, B/L.?DIGITAL DEFORMITIES:?Digital contracture, PIPJ, 2-5 B/L, incompl-reducible to push-up test, no over, nor underlapping, Reveals swelling/redness/enlargement of PIPJs, with evidence of shoe producing skin irritation.?General Examination: ?GENERAL APPEARANCE:?Reveals a pleasant, alert, well nourished, well- developed, well hydrated individual, who demonstrates proper attention to hygiene/body habitus, and is in no acute distress, Pt serves as own historian for office visit today.?ORIENTED:?person, place, and time.?FOOT EXAM:?Footwear Evaluation? Assessment: * Assessment: 1.?Tinea unguium - B35.1 (Pr imary)???2.?Xerosis of skin - L85.3???Specify :Acute problem, Uncomplicated (3)???3.?Type 2 diabetes mellitus with polyneuropathy - E11.42??? Plan: * Treatment: * Procedures:?Debride Nail 6-10:?Nail debridement?Performance of this nail treatment by a nonprofessional would put this patients foot and overall health at risk. Therefore, debridement to affected nail(s), as described in exam, was performed extensively to reduce/remove overall nail length, girth, thickness, subungual debris, and necrotic tissue, by manual and/or electrical means through the use of a nail nipper and/or dremel-type sample tester grinder, to a more viable healthy nail plate or bed tissue 6-10 nails in total. Silver nitrate was used for any petechial bleeding as necessary. Definitive antifungal treatment options, both pharmaceutical and surgical, have been reviewed and discussed with the patient. The patient solely prefers the use of intermittent/as needed professional debridement services for their nail condition and understands the need for additional periodic treatments to maintain effectiveness in symptomatic relief - 86470.?Keratoma Treatment:?Parring or Cutting of Benign Hyperkeratotic Lesion(s)?(-57) More than 4 Lesions - The Benign hyperkeratotic lesions, ( 8) in total, locations as stated and described in exam, were pared, and/or cut utilizing a sterile 15 blade, tissue nippers, and/or power dremel instrumentation - 90013.? * Procedure Codes:?50600 DEBRI DE NAIL, 6 OR MORE, Modifiers: XS 77306 TRIM SKIN LESIONS, OVER 4, Modifiers: XS * Follow Up:?2 Months * Images: * Sign off status: Completed true * Provider:?Manju Hodges DPM Date:?09/2023 Generated for Omar gallegos/Jesus/Jagjit on:?06/27/2024 07:58 AM EST History and Physical Notes * HPI (History of Present Illness) Category Sub-Category Detail Notes Category Not es Skin problems Location: B/L Duration: several months Course: Pt had back surgery and can't bend to lotion her feet for last month Treatments: medication ( Gold Jhon nd) At Risk footcare Pt States Last PCP Visit: Date: 4 Examination Category Sub-Category Detail Notes Category Not es Neurological SENSORY: Neurological exa m demonstrates, reduced light touch sensation, reduced sharp/dull pin prick discrimination , B/L, 5.07 monofilament test performed at plantar aspects of 5 varied sites per foot shows sensation, reduced , B/L Dermatologic SKIN FINDINGS: Skin exam reveal s Keratotic lesion(s) located at Medial plantar TA T4 T5 T9 SUB MTH (s) 1 5 Heel(s) B/L , Skin shows sign(s) of, dryness, scaling, in a stocking fashion, no fissure(s) present, B/L Orthopedic DIGITAL DEFORMITIES: Digital con tracture, PIPJ, 2-5 B/L, incompl-reducible to push-up test, no over, nor underlapping, Reveals swelling/redness/enlargement of PIPJs, with evidence of shoe producing skin irritation MUSCLE STRENGTH: 5/5 all groups in a symmetrical fashion, B/L General Examination GENERAL APPEARANCE: Reveals a pleasant, alert, well nourished, well-developed, well hydrated individual, who demonstrates proper attention to hygiene/body habitus, and is in no acute distress, Pt serves as own historian for office visit today FOOT EXAM: Lower Extremity Neurological Exa m performed:: Yes ORIENTED: person, place, and t [place] Footwear Evaluation Footwear Evaluation performe d:: Yes Ophthalmology Referral DIABETES EYE EXAM Procedure Perform ed:: Yes ?Date of Exam Performed: 04/11/2024 Findings of Diabetic Eye Exam:: no retin opathy Vascular DP PULSES(B): 1/4, B/L PT PULSES(B): 1/4, B/L CAPILLARY FILL TIME: immediate, all digi ts, B/L TEMPERTURE GRADIENT(C): normal, warm to cool, proximal to distal, B/L, B/L TROPHIC CONDITION-TEXTURE/ELASTICITY/TURGOR/HAIR GROWTH(B): decreased EDEMA(C): 2/4 B/L PIGMENTATION: pale, B/L Nails NAILS are: Elongated, overg rown, dystrophic, lytic, greater than 3mm thick, discolored and friable with crumbly malodorous subungual debris 1-5 B/L
--- OUTSIDE RECORDS SUMMARY | 2024-06-27 07:59 | XMS_ITS ---
Author Organization [facility] Address [address] [facility] [address] [facility] [place] [address] Care Team Providers Care Curbstone Setter Name Role Phone Tramaine Yan Primary Care Provider Mnaju Montana Unavailable [phone] Allergies No Known Allergies REASON FOR VISIT At Risk Footcare, Skin problem(s) Medications Medication SIG (Take, Route, Frequency, Duration) Notes Start Date End Date Status Probiotic Active Vitamin D Active Multivitamin Active albuterol Active metFORMIN HCl 500 MG 1 tablet with a paradise l Orally Once a day Active traMADol HCl 50 MG 1 tablet as needed Orally Once a day Not-Taking Extra Depth Orthopedic Shoes (1 Pair) with Customized Heat Molded Multidensity Innersoles (3 Pair) as directed Dx: NIDDM/Polyneuropathy (E11.42), Hammertoe Foot Deformity (M20.41,M20.42), Preulcerative Skin Lesion(s) (L85.1 03/02/2023 Active metFORMIN HCl 500 MG 1 tablet with a paradise l Orally Once a day Not-Taking Lisinopril 10 MG Oral for 90 Days Active Omeprazole 20 MG TAKE 1 CAPSULE BY MOUTH TWICE A DAY Oral for 90 Days Active Metoprolol Succinate ER 100 MG TAKE 1 TABLET BY MOUTH EVERY DAY Oral for 90 Days Active Amitriptyline HCl 50 MG TAKE 1 TABLET BY MOUTH AT BEDTIME Oral for 90 Days Active Trulicity 0.75 MG/0.5ML INJECT 0.5 ML (0.75 MG) SUBCUTANEOUSLY EVERY 7 DAYS Subcutaneous for 28 Days Active Atorvastatin Calcium 10 MG TAKE 1 TABLET BY MOUTH EVERYDAY AT BEDTIME Oral for 30 Days Active Naproxen 440mg 2x per day Active Colace 100 MG 1 capsule as needed Orally Once a day Active Social History Tobacco Use: Social History Observation Description Date Details (start date - stop date) Current Smoker NA - NA Tobacco Use/Smoking Question Answer Notes Are you a: current smoker How often do you smoke cigarettes? every day How many cigarettes a day do you smoke? 6-10 Alcohol Screen Question Answer Notes Did you have a drink containing alcohol in the p ast year? No Points 0 Interpretation Negative Tobacco use other than smoking: Question Answer Notes Are you an other tobacco user? No Vital Signs Height 5ft5in in 01/11/2024 Weight 240 lbs 01/11/2024 BMI 39.93 kg/m2 01/11/2024 Blood pressure systolic 130 mm Hg 01/11/20 24 Blood pressure diastolic 80 mm Hg 024 Encounters Encounter Location Date Provider Diagnosis [facility] [address] [address] 01/11/2024 Manju Hodges Xerosis of skin L85. 3 ; Type 2 diabetes mellitus with polyneuropathy E11.42 and Tinea unguium B35.1 Assessments Encounter Date Diagnosis (ICD Code) Assessment Notes Treatment Notes Treatment Clinical Notes Section Notes 01/11/2024 Xerosis of skin (ICD-10 - L85.3) 01/11/2024 Type 2 diabetes mellitus with polyneuropathy (ICD-10 - E11.42) 01/11/2024 Tinea unguium (ICD-10 - B35.1) Plan Of Treatment Next Appt Details Follow Up: 2 Months, Reason: Provider Name:Manju gray, 08/23/2024 09:30:00 AM, [address] [place], [address], Procedure Notes * Category Sub-Category Detail Notes Debride Nail 6-10 Nail debridement Nail debridem ent performed extensively to reduce/remove overall nail length and girth, subungual debris, and necrotic tissue, by manual and electrical means with use of a nail nipper and/or dremel, to more viable healthy nail plate or bed tissue 6-10. Silver nitrate used for any petechial bleeding as necessary. Patient chooses, to use a topical antifungal Keratoma Treatment Parring or Cutting o f Benign Hyperkeratotic Lesion(s) 62858 ( More than 4 Lesions ) - The Benign hyperkeratotic lesions, as described above were pared, and/or cut utilizing a sterile 15 blade, tissue nippers, and/or dremel Progress Notes * Rand DIAZ ADOB: [birth year] (68 yo F)Acc No.[id number]:01/11/2024 Progress Note Patient:?Rand Diaz Provider:?Manju Hodges DPM :1955???Age:68 Y???Sex:Female D ate:01/11/2024 Address:[address] [place] [id number] Pcp:Tramaine Yan Subjective: * Chief Complaints: * ???At Risk FootcareSkin prob ashwini(s) * HPI: ???At Risk footcare:?Pt States Last PCP Visit:?Date?12/28/2023 ???Skin problems:?Location:?B/L .?Duration:?several months.?Course:?improved at 75%.?Treatments:?medication ( Vanicream).? * ROS:?General/Constitutional:?Nausea?denies, denies, denies, denies.?Vomiting?denies, denies, denies, denies.?Hunger Thirst?denies, denies, denies, denies.?Loss appetite?denies, denies, denies, denies.?Chills?denies, denies, denies, denies.?Fatigue?denies, denies, denies, denies.?Fever?denies, denies, denies, denies.?Night Sweats?denies, denies, denies, denies.?Unexplained weight loss?denies, denies, denies, denies.?Unexplained weight gain?denies, denies, denies, denies.?HEENTM:?Dentures?denies, denies, denies, denies.?Dizziness?denies, denies, denies, denies.?Glasses/contacts?admits, admits, admits, admits.?Retinopathy?denies, denies, denies, denies.?Blurred/double vision?denies, denies, denies, denies.?TMJ?denies, denies, denies, denies.?Discharge/drainage?denies, denies, denies, denies.?Implants?denies, denies, denies, denies.?Sore throat?denies, denies, denies, denies.?Dental implants?denies, denies, denies, denies.?Hard of hearing ?denies, denies, denies, denies.?Difficulty chewing/swallowing/speaking?denies, denies, denies, denies.?Nose bleeds?denies, denies, denies, denies.?Sore mouth?denies, denies, denies, denies.?Respiratory:?On Oxygen?denies, denies, denies, denies.?Pneumonia/pleurisy?denies, denies, denies, denies.?Bronchitis?denies, denies, denies, denies.?Emphysema?denies, denies, denies, denies.?Coughing?denies, denies, denies, denies. Cough blood?denies, denies, denies, denies.?Shortness of breath?denies, denies, denies, denies.?Wheezing?denies, denies, denies, denies.?Cardiovascular:?Pacemaker?denies, denies, denies, denies.?MVP?denies, denies, denies, denies.?WPW?denies, denies, denies, denies.?CHF?denies, denies, denies, denies.?Heart attack?denies, denies, denies, denies.?Septal defect?denies, denies, denies, denies.?Rapid beat?denies, denies, denies, denies.?Chest pain ?denies, denies, denies, denies.?Atrial Fib.?denies, denies, denies, denies.?Murmur/Palpitations?denies, denies, denies, denies.?Gastrointestinal:?Hemorrhoids?admits, admits, admits, admits.?Stomach/Abdominal pain?denies, denies, denies, denies.?Dark blood stool?denies, denies, denies, denies.?Irritable bowel ?denies, denies, denies, denies.?Constipation?denies, denies, denies, denies.?Diarrhea?denies, denies, denies, denies.?Hematology:?Swelling?admits, denies, denies, denies.?Clots?denies, denies, denies, denies.?Varicose Veins?denies, denies, denies, denies.?Bruising?denies, denies, denies, denies.?Bleeding problem?denies, denies, denies, denies.?Genitourinary:?Blood urine?denies, denies, denies, denies.?Frequent/Painfu/urination/bladder control?denies, denies, denies, denies.?Kidney stones?denies, denies, denies, denies.?Infection (UTI)?denies, denies, denies, denies.?Nephropathy denies, denies, denies, denies.?sex trans dis (STD)?denies, denies, denies, denies.?Prostate?denies, denies, denies, denies.?Musculoskeletal:?Hammertoes?denies, denies, denies, denies.?Bunions?denies, denies, denies, denies.?Back Pain?admits, admits, admits, admits.?Muscle Cramps/ Resting?denies, denies, denies, denies.?Muscle cramps / walking?denies, denies, denies, denies.?Generalized aches and pains?admits, admits, admits, admits.?Weakness?admits, admits, admits, admits.?Integ.:?Long?denies, denies, denies, denies.?Scars?admits, admits, admits, admits.?Corns/calluses?admits, denies, admits, denies.?Ingrown nails?admits, admits, admits, admits.?Painful nails?admits,admits,admits,admits.?Open Sores?denies, denies, denies, denies.?Rashes?denies, denies, denies, denies.?Neurologic:?Difficulty sleeping?denies, denies, denies, denies.?Brain disorder?denies, denies, denies, denies.?Numbness?admits, admits, admits, admits.?Balance trouble?denies, denies, denies, denies.?Confusion?denies, denies, denies, denies.?Fainting/blackouts?denies, denies, denies, denies.?Tingling?admits, admits, admits, admits.?Tremors?denies, denies, denies, denies.? * Medical History:? * Surgical History:?knee repla cement, bilateral 2005, 2007cervical spine 03/27/2013gall bladder removal 04/29/2018hip replacement 04/06/2023 * Hospitalization/Major Diagno stic Procedure:?Denies Past Hospitalization * Family History:?Mother: angel degroot, diagnosed with Family history of arthritis, Diabetic - NIDDM, Unspecified essential hypertension, Other malignant neoplasm of unspecified site.?Father: .?Paternal Grand Mother: diagnosed with Diabetic - NIDDM, Unspecified cerebral artery occlusion with cerebral infarction.?Maternal Grand Mother: diagnosed with Unspecified essential hypertension, Unspecified heart disease.? * Social History:?Tobacco Use:?Tobacco Use/Smoking?Are you a:?current smoker ?How often do you smoke cigarettes??every day ?How many cigarettes a day do you smoke??6-10 ?Tobacco use other than smoking?Are you an other tobacco user??No ???Drugs/Alcohol:?Drugs?Have you used drugs other than those for medical reasons in the past 12 months??No ?Alcohol Screen?Did you have a drink containing alcohol in the past year??No ?Points?0 ?Interpretation?Negative ???Miscellaneous:?Caffeine: yes, frequency: , 2-3 cups per day. ?no Children. ?no Exercise. ?Marital status: . 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 * Medications:?TakingmetFORMIN HCl 500 MG Tablet 1 tablet with a meal Orally Once a dayalbuterol Vitamin D Probiotic Multivitamin Colace 100 MG Capsule 1 capsule as needed Orally Once a dayNaproxen , Notes: 440mg 2x per dayAtorvastatin Calcium 10 MG [...] Hammertoe Foot Deformity (M20.41,M20.42), Preulcerative Skin Lesion(s) (L85.1Taking metFORMIN HCl 500 MG Tablet 1 tablet with a meal Orally Once a dayTaking albuterol Taking Vitamin D Taking Probiotic Taking Multivitamin Taking Colace 100 MG Capsule 1 capsule as needed Orally Once a dayTaking Naproxen , Notes: 440mg 2x per dayTaking Atorvastatin Calcium 10 MG Tablet TAKE 1 TABLET BY MOUTH EVERYDAY AT BEDTIME Oral Taking Trulicity 0.75 MG/0.5ML Solution Pen-injector INJECT 0.5 [...] Hammertoe Foot Deformity (M20.41,M20.42), Preulcerative Skin Lesion(s) (L85.1Not-Taking/PRNtraMADol HCl 50 MG Tablet 1 tablet as needed Orally Once a daymetFORMIN HCl 500 MG Tablet 1 tablet with a meal Orally Once a dayMedication List reviewed and reconciled with the patientNot-Taking/PRN traMADol HCl 50 MG Tablet 1 tablet as needed Orally Once a dayNot-Taking/PRN metFORMIN HCl 500 MG Tablet 1 tablet with a meal Orally Once a dayMedication List reviewed and reconciled with the patient * Allergies:?N.K.D.A.yes[Aller gies Verified] Objective: * Vitals:?Ht: 5ft5in, Wt:240, BMI:39.93, Shoe size: 8W, BP:130/80 mm Hg, BS: not taken, Ht-cm: 165.1 cm, Wt-k.86 kg. * Examination: ???Ophthalmology Referral: ?DIABETES EYE EXAM?Neurological: [...] 1 5 Heel(s) B/L , Skin shows approximately 75% LESS sign(s) of, dryness, scaling, in a stocking fashion, no fissure(s) present, B/L.?Vascular: ?DP PULSES:? 07/15, B/L.?PT PULSES:? 07/15, B/L.?CAPILLARY FILL TIME:?immediate, all digits, B/L.?SKIN TEMPERTURE GRADIENT OF THE LOWER EXTERMITIES:?normal, warm to cool, proximal to distal, B/L, B/L.?HAIR GROWTH/TEXTURE/ELASTICITY/TURGOR:? decreased.?PIGMENTATION:? pale, B/L.?EDEMA:? /4 B/L.?Orthopedic: ?MUSCLE STRENGTH:?5/5 all groups in a symmetrical fashion, B/L.?DIGITAL DEFORMITIES:?Digital contracture, PIPJ, 2-5 B/L, incompl-reducible to push-up test, no over, nor underlapping, Reveals swelling/redness/enlargement of PIPJs, with evidence of shoe producing skin irritation.?FOOTWEAR:?worn, non-supportive, shoe gear properties exacerbate patient's foot/toe deformity .?General Examination: ?GENERAL APPEARANCE:?Reveals a pleasant, alert, well nourished, well- developed, well hydrated individual, who demonstrates proper attention to hygiene/body habitus, and is in no acute distress, Pt serves as own historian for office visit today.?ORIENTED:?person, place, and time.?FOOT EXAM:?Footwear Evaluation? Assessment: * Assessment: 1.?Xerosis of skin - L85.3 ( Primary), Acute problem, Uncomplicated (3)?2.?Type 2 diabetes mellitus with polyneuropathy - E11.42?3.?Tinea unguium - B35.1? Plan: * Treatment: * Procedures:?Debride Nail 6-10:?Nail debridement?Nail debridement performed extensively to reduce/remove overall nail length and girth, subungual debris, and necrotic tissue, by manual and electrical means with use of a nail nipper and/or dremel, to more viable healthy nail plate or bed tissue 6-10. Silver nitrate used for any petechial bleeding as necessary. Patient chooses, to use a topical antifungal.?Keratoma Treatment:?Parring or Cutting of Benign Hyperkeratotic Lesion(s)?64062 ( More than 4 Lesions ) - The Benign hyperkeratotic lesions, as described above were pared, and/or cut utilizing a sterile 15 blade, tissue nippers, and/or dremel.? * Procedure Codes:?72738 DEBRI DE NAIL, 6 OR MORE, Modifiers: XS 06843 TRIM SKIN LESIONS, OVER 4, Modifiers: XS * Preventive Medicine:? ??Counseling:?Discussion:?-12: Office or other outpatient visit for the evaluation and management of an established patient, which required a medically appropriate history and/or examination and STRAIGHTFORWARD level of MEDICAL DECISION MAKING, 1 SELF-LIMITED OR MINOR PROBLEM, MINIMAL- NO AMOUNT/COMPLEXITY OF DATA TO BE REVIEWED/ANALYZED, AND MINIMAL RISK OF COMPLICATION/MORBIDITY. The visit on the day of the encounter encompassed interpreting the data and educating the patient as to the nature of their condition, treatment options available according to their individual PMH, meds, allergies, and overall health/living conditions, as well as any potential risks or complications that may occur from a failure to adhere to, and participate in, the recommended course of therapy. The discussion included a complete verbal, and/or written explanation of the examination results, any x-rays taken, the proposed diagnosis, and outline of the treatment plan. A schedule for future care needs was also explained. The patient verbalized an understanding of the instructions at this time and agreed to be an active participant in their treatment. If the patient should think of any questions or concerns after the visit, I have encouraged the patient to call the office.?Xerosis:?Given recent successful results to treatment, The patient is to cont the rx cream as directed.? * Follow Up:?2 Months * Images: * Sign off status: Completed true * Provider:?Manju Hodges DPM Date:?08/2023 Generated for Omar gallegos/Jesus/Jagjit on:?06/27/2024 07:58 AM EST History and Physical Notes * HPI (History of Present Illness) Category Sub-Category Detail Notes Category Not es Skin problems Location: B/L Duration: several months Course: improved at 75% Treatments: medication ( Vanicre am) At Risk footcare Pt States Last PCP [...] 1 5 Heel(s) B/L , Skin shows approximately 75% LESS sign(s) of, dryness, scaling, in a stocking fashion, no fissure(s) present, B/L Orthopedic FOOTWEAR: worn, non-suppor tive, shoe gear properties exacerbate patient's foot/toe deformity DIGITAL DEFORMITIES: Digital contracture , PIPJ, 2-5 B/L, incompl-reducible to push-up test, [...] d:: Yes Ophthalmology Referral DIABETES EYE EXAM Diabetic Retinopa thy Screening:: No Findings of Diabetic Eye Exam:: no retin [...]
--- OUTSIDE RECORDS SUMMARY | 2024-06-27 07:59 | XMS_ITS ---
Author Organization [facility] Address [address] [place] [address] Care Team Providers Care Adventure Guide Name Role Phone Tramaine Yan Primary Care Provider Manju Montana Unavailable [phone] Allergies No Known Allergies REASON FOR VISIT At Risk Footcare, Skin problem(s) Medications Medication SIG (Take, Route, Frequency, Duration) Notes Start Date End Date Status traMADol HCl 50 MG 1 tablet as [...] Active Naproxen 440mg 2x per day Active Probiotic Active Vitamin D Active Colace 100 MG 1 capsule as needed Orally Once a day Active Multivitamin Active albuterol Active Roflumilast Active Tylenol Active metFORMIN HCl 500 MG 1 tablet with a paradise l Orally Once a day Active Wixela Inhub Active Lidocaine 5 % 1 patch remove after 12 hours Externally Once a day Active Social History Tobacco [...] user? No Vital Signs Height 5ft5in in 03/31/2024 Weight 240 lbs 03/31/2024 BMI 39.93 kg/m2 03/31/2024 Blood pressure systolic 126 mm Hg 03/31/20 24 Blood pressure diastolic 72 mm Hg 024 Encounters Encounter Location Date Provider Diagnosis [facility] [address] [address] 03/31/2024 Manju Hodges Xerosis of skin L85. 3 ; Type 2 diabetes mellitus with polyneuropathy E11.42 and Tinea unguium B35.1 Assessments Encounter Date Diagnosis (ICD Code) Assessment Notes Treatment Notes Treatment Clinical Notes Section Notes 03/31/2024 Xerosis of skin (ICD-10 - L85.3) 03/31/2024 Type 2 diabetes mellitus with polyneuropathy (ICD-10 - E11.42) 03/31/2024 Tinea unguium (ICD-10 - B35.1) Plan Of Treatment Next Appt Details Follow Up: 2 Months, Reason: Provider Name:Manju gray, 08/23/2024 09:30:00 AM, [address] [place], [address], Procedure Notes * Category Sub-Category Detail Notes [...] or Cutting o f Benign Hyperkeratotic Lesion(s) 09512 ( More than 4 Lesions ) - The Benign hyperkeratotic lesions, as described above were pared, and/or cut utilizing a sterile 15 blade, tissue nippers, and/or dremel Progress Notes * Rand DIAZ ADOB: [birth year] (68 yo F)Acc No.[id number]:03/31/2024 Progress Note Patient:?Rand Diaz Provider:?Manju Hodges DPM :1955???Age:68 Y???Sex:Female D ate:03/31/2024 Address:[address] [place] [address], [place], [id number] Pcp:Tramaine Yan Subjective: * Chief Complaints: * ???At Risk FootcareSkin prob ashwini(s) * HPI: ???At Risk footcare:?Pt States Last PCP Visit:?Date?12/28/2023 ???Skin problems:?Location:?B/L .?Duration:?several months.?Treatments:?medication ( Gold Rosario).? * ROS:?General/Constitutional:?Nausea?denies.?Vomiting?denies.?Hunger Thirst?denies.?Loss appetite?denies.?Chills?denies.?Fatigue?denies.?Fever?denies.?Night Sweats?denies.?Unexplained weight loss?denies.?Unexplained weight gain?denies.?HEENTM:?Dentures?denies.?Dizziness?denies.?Glasses/contacts?admits.?Retinopathy?de nies.?Blurred/double vision?denies.?TMJ?denies.?Discharge/drainage?denies.?Implants?denies.?Sore throat?denies.?Dental implants?denies.?Hard of hearing ?denies.?Difficulty chewing/swallowing/speaking?denies.?Nose bleeds?denies.?Sore mouth?denies.?Respiratory:?On Oxygen?denies.?Pneumonia/pleurisy?denies.?Bronchitis?denies.?Emphysema?denies.?C oughing?denies.?Cough blood?denies.?Shortness of breath?denies.?Wheezing?denies.?Cardiovascular:?Pacemaker?denies.?MVP?denies.?WPW?denies.?CHF?denies.?Heart attack?denies.?Septal defect?denies.?Rapid beat?denies.?Chest pain ?denies.?Atrial Fib.?denies.?Murmur/Palpitations?denies.?Gastrointestinal:?Hemorrhoids?admits.?Stomach/Abdominal pain?denies.?Dark blood stool?denies.?Irritable bowel ?denies.?Constipation?denies.?Diarrhea?denies.?Hematology:?Swelling?denies.?Clots?denies.?Varicose Veins?denies.?Bruising?denies.?Bleeding problem?denies.?Genitourinary:?Blood urine?denies.?Frequent/Painfu/urination/bladder control?denies.?Kidney stones?denies.?Infection (UTI)?denies.?Nephropathy?denies.?sex trans dis (STD)?denies.?Prostate?denies.?Musculoskeletal:?Hammertoes?denies.?Bunions?denies.?Back Pain?admits.?Muscle Cramps/ Resting?denies.?Muscle cramps / walking?denies.?Generalized aches and pains?admits.?Weakness?admits.?Integ.:?Long?denies.?Scars?admits.?Corns/calluses?denies.?Ingrown nails?admits.?Painful nails?admits.?Open Sores?denies.?Rashes?denies.?Neurologic:?Difficulty sleeping?denies.?Brain disorder?denies.?Numbness?admits.?Balance trouble?denies.?Confusion?denies.?Fainting/blackouts?denies.?Tingling?admits.?Tr emors?denies.? * Medical History:? * Surgical History:?knee repla cement, bilateral 2006, 2007cervical spine 03/27/2013gall bladder removal 04/29/2018hip replacement [...] than smoking?Are you an other tobacco user??No ???Miscellaneous:?Caffeine: yes, frequency: , 2-3 cups per day. ?no Children. ?no Exercise. ?Marital status: . 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 * Medications:?TakingWixela In hub Lidocaine 5 % Patch 1 patch remove after 12 hours Externally Once a dayTylenol Roflumilast metFORMIN HCl 500 MG Tablet 1 tablet [...] Foot Deformity (M20.41,M20.42), Preulcerative Skin Lesion(s) (L85.1Taking Wixela Inhub Taking Lidocaine 5 % Patch 1 patch remove after 12 hours Externally Once a dayTaking Tylenol Taking Roflumilast Taking metFORMIN HCl 500 MG Tablet 1 [...] Vitals:?Ht: 5ft5in, Wt:240, BMI:39.93, Shoe size: 8W, BP:126/72 mm Hg, BS: not taken, Ht-cm: 165.1 cm, Wt-k.86 kg. * ???Past Orders: ???Lab:HEMOGLOBIN A1C (GLYCO HEMOGLOBIN) (Order Date - 03/29/2024) (Collection Date - 03/29/2024) ? Value Reference Range ?TOTAL HEMOGLOBIN (HGBA1C) 7.3 * Examination: ???Ophthalmology Referral: ?DIABETES EYE EXAM?Neurological: [...] antifungal.?Keratoma Treatment:?Parring or Cutting of Benign Hyperkeratotic Lesion(s)?89532 ( More than 4 Lesions ) - The Benign hyperkeratotic lesions, as described above were pared, and/or cut utilizing a sterile 15 blade, tissue nippers, and/or dremel.? * Procedure Codes:?62151 DEBRI DE NAIL, 6 OR MORE, Modifiers: XS 78980 TRIM SKIN LESIONS, OVER 4, Modifiers: XS * Preventive Medicine:? ??Counseling:?Discussion:?-13: Office or other outpatient visit for the evaluation and management of an established patient, which required a medically appropriate history and/or examination and LOW level of DECISION MAKING for: 1 STABLE ACUTE UNCOMPLICATED PROBLEM, 2 OR MORE MINOR PROBLEMS, OR 1 STABLE CHRONIC PROBLEM, THAT POSE(S) A LOW RISK FOR MORBIDITY/MORTALITY. The visit on the day of the [...] have encouraged the patient to call the office.?Xerosis:?The patient was counseled on the diagnosis, potential etiologies, and treatment options for their skin condition. We discussed the risks and benefits of each option from performing no treatment, to utilizing OTC topical skin creams/ointments, to utilizing prescription topical creams/ointments, to utilizing customized compounded topical medications and use of nocturnal occlusion with any/all previously detailed therapies. We discussed the advantages and disadvantages of each possible treatment and importance for adherence to all the recommended therapies for optimum success and avoid potential complications such as open sore/infection/possible hospitalization. We discussed the potential effectiveness of each topical preparation as well as each ones possible side effects and/or patient medication interactions. Patient questions re: use, dosage, successful outcomes, and application consistency were reviewed and the patient verbalized that all answers were clearly understood, Recom. Gold Bonds for Diabetics.? * Follow Up:?2 Months * Images: * Sign off status: Completed true * Provider:?Manju Hodges, DPTrent Date:? Generated for Omar gallegos/Jesus/Jagjit on:?06/27/2024 07:58 AM EST History and Physical Notes * HPI (History of Present Illness) Category Sub-Category Detail Notes Category Not es Skin problems Location: B/L Duration: several months Treatments: medication ( Gold Jhon nd) At [...]
--- OUTSIDE RECORDS SUMMARY | 2024-06-27 07:59 | XMS_ITS | Patient Health Record ---
Author Organization [facility] Address [address] [facility] [place] [address] Care Team Providers Care [facility] Associate Name Role Phone Tramaine Yan Primary Care Provider Manju [place] Unavailable [phone] Allergies No Known Allergies Results Component Value Reference Range Notes HEMOGLOBIN A1C (GLYCOHEMOGLO BIN) Reviewed date:10/27/2023 03:37:34 PM Interpretation: Performing Lab: Notes/Report: HEMOGLOBIN A1C (HH) 8.1 HEMOGLOBIN A1C (GLYCOHEMOGLO BIN) Reviewed date:01/11/2024 09:10:22 AM Interpretation: Performing Lab: Notes/Report: HEMOGLOBIN A1C (HH) 6.8 HEMOGLOBIN A1C (GLYCOHEMOGLO BIN) Reviewed date:06/13/2024 08:52:29 AM Interpretation: Performing Lab: Notes/Report: TOTAL HEMOGLOBIN (HGBA1C) 6.9 HEMOGLOBIN A1C (GLYCOHEMOGLO BIN) Reviewed date:03/31/2024 08:57:06 AM Interpretation: Performing Lab: Notes/Report: TOTAL HEMOGLOBIN (HGBA1C) 7.3 Reason For Referral No Information Medications Medication SIG (Take, Route, Frequency, Duration) Notes Start Date End Date Status Lidocaine 5 % 1 patch remove after 12 hours Externally Once a day Not-Taking Trulicity 0.75 MG/0.5ML INJECT 0.5 ML (0.75 MG) SUBCUTANEOUSLY EVERY 7 DAYS Subcutaneous for 28 Days Active Wixela Inhub Active Atorvastatin Calcium 10 MG TAKE 1 TABLET BY MOUTH EVERYDAY AT BEDTIME Oral for 30 Days Active Naproxen 440mg 2x per day Active Colace 100 MG 1 capsule as needed Orally Once a day Active albuterol Active metFORMIN HCl 500 MG 1 tablet with a paradise l Orally Once a day Active Omeprazole 20 MG TAKE 1 CAPSULE BY MOUTH TWICE A DAY Oral for 90 Days Active Roflumilast Not-Taki ng Metoprolol Succinate ER 100 MG TAKE 1 TABLET BY MOUTH EVERY DAY Oral for 90 Days Active Tylenol Active Amitriptyline HCl 50 MG TAKE 1 TABLET BY MOUTH AT BEDTIME Oral for 90 Days Active Multivitamin Active metFORMIN HCl 500 MG 1 tablet with a paradise l Orally Once a day Not-Taking Probiotic Active traMADol HCl 50 MG 1 tablet as needed Orally Once a day Not-Taking Vitamin D Active Extra Depth Orthopedic Shoes (1 Pair) with Customized Heat Molded Multidensity Innersoles (3 Pair) as directed Dx: NIDDM/Polyneuropathy (E11.42), Hammertoe Foot Deformity (M20.41,M20.42), Preulcerative Skin Lesion(s) (L85.1 03/02/2023 Active Lisinopril 10 MG Oral for 90 Days Active Immunizations Vaccine Route Administration Date Status Comme nts Influenza Unknown 03/16/2022 Administered Influenza Unknown 05/12/2023 Administered Social History Tobacco Use: Social History Observation [...] Are you an other tobacco user? No Problems Problem Type SNOMED Code ICD Code Onset Dates Problem Status W/U Status Risk Notes Problem Acquired hammer toe of right foot (456314298096 9105) Other hammer toe(s) (acquired), right foot (M20.41) Active confirmed Problem Acquired hammer toe of left foot (133964899823 9103) Other hammer toe(s) (acquired), left foot (M20.42) Active confirmed Problem 80214583 Type 2 diabetes mellitus with polyneuropathy (E11.42) Active confirmed Vital Signs Blood pressure diastolic 80 mm Hg 06/13/2024 Height 5ft5in in 06/13/2024 Blood pressure systolic 124 mm Hg 06/13/2024 Weight 240 lbs 06/13/2024 BMI 39.93 kg/m2 06/13/2024 Encounters Encounter Location Date Provider Diagnosis [address] [address] 07/20/2023 Manju Perica Xerosis of skin L85. 3 ; Type 2 diabetes mellitus with polyneuropathy E11.42 and Tinea unguium B35.[address] [address] 10/27/2023 Manju Perica Xerosis of skin L85. 3 ; Type 2 diabetes mellitus with polyneuropathy E11.42 and Tinea unguium B35.[address] [address] 01/11/2024 Manju Perica Xerosis of skin L85. 3 ; Type 2 diabetes mellitus with polyneuropathy E11.42 and Tinea unguium B35.[address] [address] 03/31/2024 Manju Perica Xerosis of skin L85. 3 ; Type 2 diabetes mellitus with polyneuropathy E11.42 and Tinea unguium B35.[address] [address] 06/13/2024 Manju Perica Xerosis of skin L85. 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 [facility] [address] [address] 09/28/2023 Manju [place] Assessments Encounter Date Diagnosis (ICD Code) Assessment Notes Treatment Notes Treatment Clinical Notes Section Notes 07/20/2023 Xerosis of skin (ICD-10 - L85.3) 10/27/2023 Xerosis of skin (ICD-10 - L85.3) 01/11/2024 Xerosis of skin (ICD-10 - L85.3) 01/11/2024 Type 2 diabetes mellitus with polyneuropathy (ICD-10 - E11.42) 03/31/2024 Xerosis of skin (ICD-10 - L85.3) 06/13/2024 Tinea unguium (ICD-10 - B35.1) 06/13/2024 Xerosis of skin (ICD-10 - L85.3) 06/13/2024 Type 2 diabetes mellitus with polyneuropathy (ICD-10 - E11.42) 03/31/2024 Type 2 diabetes mellitus with polyneuropathy (ICD-10 - E11.42) 10/27/2023 Type 2 diabetes mellitus with polyneuropathy (ICD-10 - E11.42) 01/11/2024 Tinea unguium (ICD-10 - B35.1) 07/20/2023 Type 2 diabetes mellitus with polyneuropathy (ICD-10 - E11.42) 10/27/2023 Tinea unguium (ICD-10 - B35.1) 07/20/2023 Tinea unguium (ICD-10 - B35.1) 03/31/2024 Tinea unguium (ICD-10 - B35.1) Plan Of Treatment Next Appt Details Provider Name:Manju gray, 08/23/2024 09:30:00 AM, [address] [place] [address], [phone], Insurance Providers Payer Name Payer Address Payer Phone Subscriber Number Group Number Insured Name Patient Relationship to Insured Coverage Start Date Coverage End Date BlueCare 65 Medicare Preferred [address] [place] [address] [id number] Rand Delgado Self - patient is the insured Medical (General) History Medical History History ICD Code Arthritis Back,Hip,and Knee pain type II diabetes Hiatal hernia High blood pressure Numbness Reflux ( GERD) Joint implants/screws Surgical History Surgery Date(Month/Year) knee replacement, bilateral 2005, 2007 cervical spine 03/27/2013 gall bladder removal 04/29/2018 hip replacement 04/06/2023 spine surgery 05/24/24
--- OUTSIDE RECORDS SUMMARY | 2024-06-27 07:59 | XMS_ITS | Continuity of Care Document ---
Author Organization [facility] Address [address] [place], [place] [address], [address] [place] [address]- Care Team Providers Care Inspector Scales Name Role Phone Yuriy GOMEZ, Tramaine Anthony Primary Care Physician [phone] [facility] Date(s): 05/18/24 - 06/17/24 [facility] [address] [place] [address] Drive [address] [place], [place] [address] Encounter Type: Triage Allergies, Adverse Reactions, Alerts No Known Allergies Medications acetaminophen 325 mg oral tablet 650 mg, By Mouth, Every 6 hours, May take OTC not to exceed 3000 mg/day, Refills 0, Maintenance, 04/06/23 9:36:00 AM EDT, Partial fill upon patient request if the prescription is for a schedule II opioid drug. Start Date: 04/06/23 Status: Ordered Repeat number: 1 amitriptyline 50 mg oral [...] 12:13:00 PM EST, Route to Pharmacy Electronically, [facility], Partial fill upon patient request if [...] Team Personnel Name: Vin CHAPA, Ryan Position: [facility] RN Member Role: Primary Care Nurse Name: Yuriy GOMEZ, Tramaine Anthony Position: [facility] Outreach Member Role: PCP Address: [address] [place], [place] [address]arn[address] [facility] [address] [place] [id number] Telecom: Care Team Related Persons Name: ERIC DIAZ Insurance Providers Guarantor name: JANEL DIAZ Health Plan Information #: 1 Payer: NA Member Number: NA Policy Number: NA Group Number: NA
--- OUTSIDE RECORDS SUMMARY | 2024-06-27 07:59 | XMS_ITS | Continuity of Care Document ---
Author Organization [facility] Address [address] [place], [place] [address], [address] [place] [address]- Care Team Providers Care Paramedic Rn Name Role Phone Yuriy GOMEZ, Tramaine Anthony [id number]07[facility] - 06/14/[address] [place], [place] [address] Attending Physician: Augustin Rae MD Referring Physician: Rachael Villanueva Encounter Type: Office Visit Allergies, Adverse Reactions, Alerts No Known Allergies [...] tablet, Refills 0, Tot. Refills 0, Maintenance, 11/13/24 12:13:00 PM EST, Route to Pharmacy Electronically, [facility], Partial fill upon patient request [...] Confirmed Active Obese class II Confirmed Active Vital Signs Most recent to oldest [Reference Range]: 1 Height 165.10 cm (06/07/24 2:47 PM) Weight 109 kg (06/07/24 2:47 PM) Body Mass Index [18.5-24.99 kg/m2] 39.99 kg/m2 *>HHI* (06/07/24 2:47 PM) Dry Weight 109 kg (06/07/24 2:47 PM) Weight Obtained Via Patient/family state d (06/07/24 2:47 PM) Dry Weight Obtained Via Patient/family s tated (06/07/24 2:47 PM) Social History Social History Type Response Smoking Status 5-9 cigarettes (betw een 1/4 to 1/2 pack)/day in last 30 days entered on: 05/10/24 Sex Sex Representation Female (finding) Patient Care team information Care Team Personnel Name: Vin CHAPA, Ryan Position: [facility] RN Member Role: Primary Care Nurse Name: Tramaine Yan NP Position: [facility] Outreach Member Role: PCP Address: [address] [place] [address] [address] [place] [address] Telecom: Care Team Related Persons Name: ERIC DIAZ Insurance Providers Guarantor name: JANEL DIAZ Health Plan Information #: 1 Payer: NA Member Number: [id number] Policy Number: NA Group Number: [id number] Health Plan Information #: 2 Payer: NA Member Number: [id number] Policy Number: NA Group Number: NA
--- NOTE | 2024-06-27 08:10 | MHC.OFFVIS ---
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 No complaints. Last Pap/HPV was negative in 05/01 Last Mammogram was BI-RADS 1 in 02/01 Last Colonoscopy was last year, the patient is due for repeat screening colonoscopy in 3 years Last DEXA scan showed osteopenia done in 08/04 [facility] Medical History Tobacco dependence Pulmonary nodules COPD (chronic obstructive pulmonary disease) Chronic bronchitis Acute arthritis Fluttering heart Hypertension Obesity Diabetes type 2, controlled Surgical History History of hip surgery History of bilateral knee replacement H/O cervical spine surgery Family History Mother Breast CA Diabetes HTN (hypertension) Paternal Grandmother Breast CA Social History Household Members: Spouse Housing: House Alcohol intake: never Patient Tobacco Use Status: Current someday Tobacco user Cigarettes Per Day: 10 Years Smoked: 35 Current occupational status: retired Sexual orientation: Straight/Heterosexual Gender identity: Female Female Reproductive History Menstrual Age of Menarche: 15 Date of last pap smear: 04/23/21 Date of Mammogram: 01/10/24 Date of last Bone Density Screenin07/13/23 Review of Systems Const All systems reviewed & are unremarkable except as noted in HPI and below Card Reports as per HPI Resp Reports as per HPI GI Reports as per HPI and Reports no additional complaints Reports as per HPI Physical Exam Vital Signs: Last Vital Signs BP 144/80 H 06/27/24 08:16 BMI result Body Mass Index 40.9 Const General: cooperative, healthy appearing and comfortable Chest Chest palpation & inspection: normal inspection of the chest and normal palpation of entire chest wall Breast/axilla inspection: normal inspection of the breasts and normal inspection of the axillae Breast/axilla palpation: normal palpation of the breasts, normal palpation of the axillae and no axillary lymphadenopathy Resp Effort & Inspection: normal respiratory effort Auscultation: clear to auscultation bilaterally Percussion: percussion normal Cardio Palpation: normal PMI Rate: regular rate Rhythm: regular rhythm Heart sounds: no murmurs and no rubs Peripheral pulses: Peripheral pulses 2+ throughout GI Inspection: Yes normal to inspection Palpation (GI): Soft to palpation, nontender, no guarding, not rigid and No hepatosplenomegaly present Percussion: Yes normal to percussion Auscultation: normal bowel sounds Rectal Exam - Female: deferred General: Yes bladder normal to palpation External Female Exam: No lesion Speculum Exam - Vagina: normal appearance of the vagina, normal palpation, normal vaginal discharge and not erythematous Speculum Exam - Cervix: normal appearance of the cervix and normal palpation Bimanual exam- vagina & uterus: normal bimanual exam, normal palpation, uterine size normal, bladder normal to palpation, consistency normal and normal palpation Bimanual Exam- Adnexa, other: normal adnexae, no masses and no tenderness Assessment & Plan Assessment & Plan (1) Well woman exam: Code(s): Z01.419 - Encounter for gynecological examination (general) (routine) without abnormal findings Category: Medical Plan: Co testing not indicated this year. Counseled the patient about the recommended dietary allowance of 1200 mg of Calcium & 600 IU of vitamin D. Instructions given the patient to schedule next screening Mammogram in 02/02. The patient was instructed to perform monthly self-breast exams and schedule annual exam in a year. All questions answered and the patient verbalized understanding. (2) Bloating: Code(s): R14.0 - Abdominal distension (gaseous) Category: Medical Plan: Discussed with the patient possible cause of bloating including GI issues, the patient has an appointment with her GI tomorrow. Will order pelvic ultrasound to rule out ovarian-pelvic causes for her bloating. Pelvic Ultrasound ordered, instructions given the patient to schedule an ultrasound follow-up appointment within 2 weeks. All questions answered, the patient verbalized understanding Orders: Orders US pelvic and transvaginal Today R14.0 - Abdominal distension (gaseous) Coding Level of Care Code Est Pt Level 3 (73608) Est Pt Prev Care >65y(52058) Diagnoses Well woman exam Z01.419 Bloating R14.0
[2024-06-27 08:16] VITALS: BP 144/80; BMI 40.9
== END 2024-06-27 08:42 | disposition home or self-care (01) ==
PROVIDERS: PCP Physician Assistant Medical; Visit Provider Obstetrics & Gynecology
DX: Z01.419 Encounter for gynecological examination (general) (routine) without abnormal findings (principal); R14.0 Abdominal distension (gaseous)
CPT/HCPCS: 99213; 99397

== ENCOUNTER → 2024-06-27 07:56 | Outpatient (BNVA) | payer MEDICARE, SELFPAY | PROVIDERS: PCP Physician Assistant Medical; Visit Provider Obstetrics & Gynecology | DX: Z01.419 Encounter for gynecological examination (general) (routine) without abnormal findings (principal); R14.0 Abdominal distension (gaseous) | CPT/HCPCS: 99212; 99397; 99459 ==

== ENCOUNTER 2024-07-10 11:05 | Outpatient (REF) | payer MEDICARE, SELFPAY ==
--- NOTE | ~2024-07-10 | US_ITS ---
CLINICAL HISTORY: R14.0 - Abdominal distension (gaseous) US pelvis transabdominal and transvaginal with Doppler Comparison: None Findings: Transabdominal scanning performed for overall anatomy. Transvaginal scanning performed for additional detail. Uterus is 5.3 cm length. Normal myometrium. No endometrial lesion, 2.9 mm thickness. There is fluid within the endometrial canal. Right ovary 1.7 x 1.5 x 0.8 cm. Left ovary 1.8 x 1.5 x 0.7 cm. Normal color Doppler with arterial/venous spectral tracing of both ovaries. No free fluid. IMPRESSION: 1. Unremarkable pelvic ultrasound with no evidence of ovarian torsion. This document has been electronically signed by: Tavares Eugene MD on 07/10/2024 13:37:15
--- OUTSIDE RECORDS SUMMARY | 2024-07-10 11:08 | XMS_ITS | Continuity of Care Document ---
Author Organization [facility] Address [address] [place], [place] [address], [address] [place] [address]- Care Team Providers Care Water Ski Assembler Name Role Phone Yuriy GOMEZ, Tramaine Anthony Primary Care Physician Encounter [facility] Date(s): 05/31/24 - 06/30/24 [facility] [address] [place] [address] Drive [address] [place], [place] [address] Encounter Type: Triage Allergies, Adverse [...] 12:13:00 PM EST, Route to Pharmacy Electronically, [facility], Partial fill upon patient [...] Team Personnel Name: Vin CHAPA, Ryan Position: [facility] RN Member Role: Primary Care Nurse Name: Yuriy GOMEZ, Tramaine Anthony Position: [facility] Outreach Member Role: PCP Address: [address] [place], [place] [address]arn[address] [facility] [address] [place] [id number] Telecom: Care Team Related Persons Name: ERIC DIAZ Insurance Providers Guarantor name: JANEL DIAZ Health Plan Information #: 1 Payer: NA Member Number: NA Policy Number: NA Group Number: NA
--- OUTSIDE RECORDS SUMMARY | 2024-07-10 11:09 | XMS_ITS ---
Author Organization [facility] Address [address] [facility] [address] [facility] [address] [facility] [place] [address] Care Team Providers Care Dip Lube Operator Name Role Phone Tramaine Yan Primary Care Provider Manju [place] Unavailable [phone] Allergies No Known Allergies REASON FOR VISIT [...] 024 Encounters Encounter Location Date Provider Diagnosis [facility] [address] [address] 06/13/2024 Manju [place] Xerosis of skin L85. [...] Provider Name:Manju gray, 08/23/2024 09:30:00 AM, [address] [place], [address], Procedure Notes * Category Sub-Category Detail Notes [...] use of a nail nipper and/or dremel-type grinder mill operator, to a more viable healthy nail plate [...] to maintain effectiveness in symptomatic relief - 31936 Keratoma Treatment Parring or Cutting o f Benign Hyperkeratotic Lesion(s) (-57) More than 4 Lesions - The Benign hyperkeratotic lesions, ( 8) in total, locations as stated and described in exam, were pared, and/or cut utilizing a sterile 15 blade, tissue nippers, and/or power dremel instrumentation - 19182 Progress Notes * Rand DIAZ ADOB: [birth year] (68 yo F)Acc No.[id number]:06/13/2024 Progress Note Patient:?Rand DIAZ Provider:?Manju [place] DPM :1955???Age:68 Y???Sex:Female D ate:06/13/2024 Address:[address] [place] [address], [place], [id number] Pcp:Tramaine Yan Subjective: * Chief Complaints: * [...] use of a nail nipper and/or dremel-type grinder mill operator, to a more viable healthy nail plate [...] to maintain effectiveness in symptomatic relief - 64433.?Keratoma Treatment:?Parring or Cutting of Benign Hyperkeratotic Lesion(s)?(-57) More than 4 Lesions - The Benign hyperkeratotic lesions, ( 8) in total, locations as stated and described in exam, were pared, and/or cut utilizing a sterile 15 blade, tissue nippers, and/or power dremel instrumentation - 09319.? * Procedure Codes:?39987 DEBRI DE NAIL, 6 OR MORE, Modifiers: XS 62611 TRIM SKIN LESIONS, OVER 4, Modifiers: XS * Follow Up:?2 Months * Images: * Sign off status: Completed true * Provider:?Manju [place] DPM Date:?09/2023 Generated for Omar gallegos/Jesus/Jagjit on:?07/10/2024 11:08 AM EST History and Physical Notes * [...] Eye Exam:: no retin opathy Vascular DP PULSES (B): 1/4, B/L PT PULSES (B): 1/4, B/L CAPILLARY FILL TIME: immediate, all digi ts, B/L TEMPERTURE GRADIENT (C): normal, warm to cool, proximal to distal, B/L, B/L TROPHIC CONDITION-TEXTURE/ELASTICITY/TURGOR/HAIR GROWTH (B): decreased EDEMA (C): 2/4 B/L PIGMENTATION: pale, B/L Nails NAILS are: Elongated, overg rown, dystrophic, lytic, greater than 3mm thick, discolored and friable with crumbly malodorous subungual debris 1-5 B/L
--- OUTSIDE RECORDS SUMMARY | 2024-07-10 11:09 | XMS_ITS | Patient Health Record ---
Author Organization [facility] Address [address] [facility] [place] [address] Care Team Providers Care Automotive Technology Instructor Name Role Phone Tramaine Yan Primary Care Provider Manju [place] Unavailable [phone] Allergies No Known Allergies Results Component Value Reference Range Notes HEMOGLOBIN A1C (GLYCOHEMOGLO BIN) Reviewed date:10/27/2023 03:37:34 PM Interpretation: Performing Lab: Notes/Report: HEMOGLOBIN A1C (HH) 8.1 HEMOGLOBIN A1C (GLYCOHEMOGLO BIN) Reviewed date:01/11/2024 09:10:22 AM Interpretation: Performing Lab: Notes/Report: HEMOGLOBIN A1C (HH) 6.8 HEMOGLOBIN A1C (GLYCOHEMOGLO BIN) Reviewed date:03/31/2024 08:57:06 AM Interpretation: Performing Lab: Notes/Report: TOTAL HEMOGLOBIN (HGBA1C) 7.3 HEMOGLOBIN A1C (GLYCOHEMOGLO BIN) Reviewed date:06/13/2024 08:52:29 AM Interpretation: Performing Lab: Notes/Report: TOTAL HEMOGLOBIN (HGBA1C) 6.9 Reason For Referral No Information Medications Medication [...] Problem Acquired hammer toe of right foot (444241466822 9105) Other hammer toe(s) (acquired), right foot (M20.41) Active confirmed Problem Acquired hammer toe of left foot (335383524112 9103) Other hammer toe(s) (acquired), left foot (M20.42) Active confirmed Problem 92351744 Type 2 diabetes mellitus with polyneuropathy (E11.42) Active confirmed Vital Signs Blood pressure diastolic 80 mm Hg 06/13/2024 Height 5ft5in in 06/13/2024 Blood pressure systolic 124 mm Hg 06/13/2024 Weight 240 lbs 06/13/2024 BMI 39.93 kg/m2 06/13/2024 Encounters Encounter Location Date Provider Diagnosis [address] [address] 07/20/2023 Manju Perica Xerosis of skin L85. 3 ; Type 2 diabetes mellitus with polyneuropathy E11.42 and Tinea unguium B35.[address] [address] 10/27/2023 Manju Perica Xerosis of skin L85. 3 ; Type 2 diabetes mellitus with polyneuropathy E11.42 and Tinea unguium B35.[address] [address] 01/11/2024 Manju Perica Xerosis of skin L85. 3 ; Type 2 diabetes mellitus with polyneuropathy E11.42 and Tinea unguium B35.[address] [address] 03/31/2024 Manju Perica Xerosis of skin L85. 3 ; Type 2 diabetes mellitus with polyneuropathy E11.42 and Tinea unguium B35.[address] [address] 06/13/2024 Manju Perica Xerosis of skin L85. 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 [facility] [address] [address] 09/28/2023 Manju [place] Assessments Encounter Date Diagnosis [...] Details Provider Name:Manju gray, 08/23/2024 09:30:00 AM, [address] [place] [address], [address], Insurance Providers Payer Name Payer Address Payer Phone Subscriber Number Group Number Insured Name Patient Relationship to Insured Coverage Start Date Coverage End Date BlueCare 65 Medicare [address]erred [address] [place] [address] [phone] [id number] Rand Delgado Self - patient is the insured Medical (General) History Medical History History ICD Code Arthritis Back,Hip,and Knee pain type II diabetes Hiatal hernia High blood pressure Numbness Reflux ( GERD) Joint implants/screws Surgical History Surgery Date(Month/Year) knee replacement, bilateral 2005, 2007 cervical spine 03/27/2013 gall bladder removal 04/29/2018 hip replacement 04/06/2023 spine surgery 05/24/24
--- OUTSIDE RECORDS SUMMARY | 2024-07-10 11:09 | XMS_ITS ---
Author Organization [facility] Address [address] [facility] [place] [address] Care Team Providers Care Solar Photovoltaic Systems Engineer Name Role Phone Tramaine Yan Primary Care Provider Manju [place] Unavailable [phone] Allergies No Known Allergies REASON FOR VISIT [...] 024 Encounters Encounter Location Date Provider Diagnosis [facility] [address] [address] 01/11/2024 Manju [place] Xerosis of skin L85. [...] Provider Name:Manju gray, 08/23/2024 09:30:00 AM, [address] [place], [address], Procedure Notes * Category Sub-Category Detail Notes [...] or Cutting o f Benign Hyperkeratotic Lesion(s) 58582 ( More than 4 Lesions ) - The Benign hyperkeratotic lesions, as described above were pared, and/or cut utilizing a sterile 15 blade, tissue nippers, and/or dremel Progress Notes * Rand DIAZ ADOB: [birth year] (68 yo F)Acc No.[id number]:01/11/2024 Progress Note Patient:?Rand Diaz Provider:?Manju [place] DPM :1955???Age:68 Y???Sex:Female D ate:01/11/2024 Address:[address] [place] [address] Pcp:Tramaine Yan Subjective: * Chief Complaints: * [...] antifungal.?Keratoma Treatment:?Parring or Cutting of Benign Hyperkeratotic Lesion(s)?28808 ( More than 4 Lesions ) - The Benign hyperkeratotic lesions, as described above were pared, and/or cut utilizing a sterile 15 blade, tissue nippers, and/or dremel.? * Procedure Codes:?64920 DEBRI DE NAIL, 6 OR MORE, Modifiers: XS 42045 TRIM SKIN LESIONS, OVER 4, Modifiers: XS [...] [place] DPM Date:?08/2023 Generated for Omar gallegos/Jesus/Jagjit on:?07/10/2024 11:08 AM [...]
--- OUTSIDE RECORDS SUMMARY | 2024-07-10 11:09 | XMS_ITS | Continuity of Care Document ---
Author Organization [facility] Address [address] [place], [place] [address], [address] [place] [address]- Care Team Providers Care Presidential Support Specialist Name Role Phone Yuriy GOMEZ, Tramaine Anthony Primary Care Physician [id number] Date(s): 06/20/24 - 06/27/[address] [place], [place] [address] Attending Physician: Augustin Rae MD Referring Physician: Tramaine Yan NP Encounter Type: Office Visit Allergies, Adverse Reactions, [...] 12:13:00 PM EST, Route to Pharmacy Electronically, [facility], Partial fill upon patient request [...] oldest [Reference Range]: 1 Height 165.10 cm (06/20/24 1:47 PM) Weight 109 kg (06/20/24 1:47 PM) Body Mass Index [18.5-24.99 kg/m2] 39.99 kg/m2 *>HHI* (06/20/24 1:47 PM) Social History Social History Type Response Smoking Status 5-9 cigarettes (betw een 1/4 to 1/2 pack)/day in last 30 days entered on: 05/10/24 Sex Sex Representation Female (finding) Patient Care team information Care Team Personnel Name: Vin CHAPA, Ryan Position: [facility] RN Member Role: Primary Care Nurse Name: Yuriy GOMEZ, Tramaine Anthony Position: [facility] Outreach Member Role: PCP Address: [address] [place] [address] [address] [place] [address] Telecom: Care Team Related Persons Name: ERIC DIAZ Insurance Providers Guarantor name: JANEL DIAZ Health Plan Information #: 1 Payer: NA Member Number: [id number] Policy Number: NA Group Number: [id number] Health Plan Information #: 2 Payer: NA Member Number: [id number] Policy Number: NA Group Number: [id number]
--- OUTSIDE RECORDS SUMMARY | 2024-07-10 11:09 | XMS_ITS ---
Author Organization [facility] Address [address] [place] [address] Care Team Providers Care Channeler Name Role Phone Tramaine Yan Primary Care Provider Manju Montana Unavailable [phone] Allergies No Known Allergies REASON FOR VISIT [...] 024 Encounters Encounter Location Date Provider Diagnosis [facility] [address] [address] 03/31/2024 Manju Hodges Xerosis of skin L85. [...] Provider Name:Manju gray, 08/23/2024 09:30:00 AM, [address] [place], [address], Procedure Notes * Category Sub-Category Detail Notes [...] or Cutting o f Benign Hyperkeratotic Lesion(s) 74010 ( More than 4 Lesions ) - The Benign hyperkeratotic lesions, as described above were pared, and/or cut utilizing a sterile 15 blade, tissue nippers, and/or dremel Progress Notes * Rand DIAZ ADOB: [birth year] (68 yo F)Acc No.[id number]:03/31/2024 Progress Note Patient:?Rand Diaz Provider:?Manju Hodges DPM :1955???Age:68 Y???Sex:Female D ate:03/31/2024 Address:[address] [place] [address], [place], [id number] Pcp:Tramaine Yan Subjective: * Chief Complaints: * [...] antifungal.?Keratoma Treatment:?Parring or Cutting of Benign Hyperkeratotic Lesion(s)?36732 ( More than 4 Lesions ) - The Benign hyperkeratotic lesions, as described above were pared, and/or cut utilizing a sterile 15 blade, tissue nippers, and/or dremel.? * Procedure Codes:?09244 DEBRI DE NAIL, 6 OR MORE, Modifiers: XS 60869 TRIM SKIN LESIONS, OVER 4, Modifiers: XS [...] Hodges, DPTrent Date:? Generated for Omar gallegos/Jesus/Jagjit on:?07/10/2024 11:08 AM [...]
== END 2024-07-10 11:06 | disposition home or self-care (01) ==
LOC: HO.US 11:05
PROVIDERS: PCP Nurse Practitioner; Visit Provider Obstetrics & Gynecology
DX: R14.0 Abdominal distension (gaseous) (principal)
CPT/HCPCS: 76830; 76856

== ENCOUNTER → 2024-07-10 11:06 | Outpatient (BNV) | payer MEDICARE, SELFPAY | PROVIDERS: PCP Nurse Practitioner; Visit Provider Nuclear Medicine | DX: R14.0 Abdominal distension (gaseous) (principal) | CPT/HCPCS: 76830; 76856 ==

== ENCOUNTER 2024-10-09 12:07 | Outpatient (AMB) | payer MEDICARE, SELFPAY ==
--- NOTE | 2024-10-09 12:07 | MHC.OFFVIS ---
Intake Visit Reasons: Ultrasound results/DO NOT RS Allergies No Known Allergies Allergy (Verified 06/27/24 08:17) HPI Comments Details: The patient is schedule telehealth visit for pelvic ultrasound follow-up regarding bloating. Pelvic ultrasound done recently showed the following: Uterus is 5.3 cm length. Normal myometrium. No endometrial lesion, 2.9 mm thickness. There is fluid within the endometrial canal. Right ovary 1.7 x 1.5 x 0.8 cm. Left ovary 1.8 x 1.5 x 0.7 cm. Normal color Doppler with arterial/venous spectral tracing of both ovaries. No free fluid. [facility] Medical History Tobacco dependence Pulmonary nodules COPD (chronic obstructive pulmonary disease) Chronic bronchitis Acute arthritis Fluttering heart Hypertension Obesity Diabetes type 2, controlled Surgical History History of hip surgery History of bilateral knee replacement H/O cervical spine surgery Family History Mother Breast CA Diabetes HTN (hypertension) Paternal Grandmother Breast CA Social History Household Members: Spouse Housing: House Alcohol intake: never Patient Tobacco Use Status: Current someday Tobacco user Cigarettes Per Day: 10 Years Smoked: 35 Current occupational status: retired Sexual orientation: Straight/Heterosexual Gender identity: Female Female Reproductive History Menstrual Age of Menarche: 15 Review of Systems Const All systems reviewed & are unremarkable except as noted in HPI and below Reports as per HPI and Reports no additional complaints GI Reports no additional complaints Reports no additional complaints Telehealth Telehealth Telehealth Platform: Telephone Location of provider rendering services: practice address Location of patient: address on file Patient Identification confirmed using: Name, : Yes Telehealth method: video Patient verbally consented to treatment: Yes Patient verbally consented to billing insurance company: Yes Patient informed of any privacy concerns related to visit: Yes Minutes spent on Phone/Video with Pt.: 2 Assessment & Plan Assessment & Plan (1) Bloating: Code(s): R14.0 - Abdominal distension (gaseous) Category: Medical Plan: Discussed with the patient the results of the pelvic ultrasound, unremarkable. Explained to the patient that her bloating is not explained by any pelvic/adnexal pathology, recommended to contact her PCP for further management. All questions answered, the patient verbalized understanding. I spent a total of 20 minutes reviewing the chart, talking to the patient via video and documenting in the medical record. Coding Level of Care Code Tele Est Pt Level 3 (43104) Diagnoses Bloating R14.0
--- OUTSIDE RECORDS SUMMARY | 2024-10-09 13:47 | XMS_ITS | Patient Health Record ---
Author Organization [facility] Address [address] [place] [address] Care Team Providers Care Rubber Goods Inspector Tester Name Role Phone Tramaine Yan Primary Care Provider Manju Montana Unavailable [phone] Allergies No Known Allergies Results Component Value Reference Range Notes HEMOGLOBIN A1C (GLYCOHEMOGLO BIN) Reviewed date:10/27/2023 03:37:34 PM Interpretation: Performing Lab: Notes/Report: HEMOGLOBIN A1C (HH) 8.1 HEMOGLOBIN A1C (GLYCOHEMOGLO BIN) Reviewed date:03/31/2024 08:57:06 AM Interpretation: Performing Lab: Notes/Report: TOTAL HEMOGLOBIN (HGBA1C) 7.3 HEMOGLOBIN A1C (GLYCOHEMOGLO BIN) Reviewed date:08/23/2024 09:27:09 AM Interpretation: Performing Lab: Notes/Report: HEMOGLOBIN A1C % (HH) 6.5 HEMOGLOBIN A1C (GLYCOHEMOGLO BIN) Reviewed date:06/13/2024 08:52:29 AM Interpretation: Performing Lab: Notes/Report: TOTAL HEMOGLOBIN (HGBA1C) 6.9 HEMOGLOBIN A1C (GLYCOHEMOGLO BIN) Reviewed date:01/11/2024 09:10:22 AM Interpretation: Performing Lab: Notes/Report: HEMOGLOBIN A1C (HH) 6.8 Reason For Referral No Information Medications Medication SIG (Take, Route, Frequency, Duration) Notes Start Date End Date Status Atorvastatin Calcium 10 MG TAKE 1 TABLET BY MOUTH EVERYDAY AT BEDTIME Oral for 30 Days Active Trulicity 1.5 MG/0.5ML as directed Subcutaneous for 28 days Active Ammonium Lactate 12 % 1 application to affected area Externally Twice a day to dry areas of skin on feet for 30 days 08/23/2024 Active Probiotic Active Lidocaine 5 % 1 patch remove after 12 hours Externally Once a day Not-Taking Multivitamin Active Roflumilast Not-Taki ng Colace 100 MG 1 capsule as needed Orally Once a day Active traMADol HCl 50 MG 1 tablet as needed Orally Once a day Not-Taking Naproxen 440mg 2x per day Active metFORMIN HCl 500 MG 1 tablet with a paradise l Orally Once a day Not-Taking Tylenol Active Metoprolol Succinate ER 100 MG TAKE 1 TABLET BY MOUTH EVERY DAY Oral for 90 Days Active metFORMIN HCl 500 MG 1 tablet with a paradise l Orally Once a day Active Omeprazole 20 MG TAKE 1 CAPSULE BY MOUTH TWICE A DAY Oral for 90 Days Active albuterol Active Lisinopril 10 MG Oral for 90 Days Active Vitamin D Active Extra Depth Orthopedic Shoes (1 Pair) with Customized Heat Molded Multidensity Innersoles (3 Pair) as directed Dx: NIDDM/Polyneuropathy (E11.42), Hammertoe Foot Deformity (M20.41,M20.42), Preulcerative Skin Lesion(s) (L85.1 03/02/2023 Active Wixela Inhub Active Amitriptyline HCl 50 MG TAKE 1 TABLET BY MOUTH AT BEDTIME Oral for 90 Days Active Immunizations Vaccine [...] Problem Acquired hammer toe of right foot (527379463314 9105) Other hammer toe(s) (acquired), right foot (M20.41) Active confirmed Problem Acquired hammer toe of left foot (144518771295 9103) Other hammer toe(s) (acquired), left foot (M20.42) Active confirmed Problem [id number] Type 2 diabetes mellitus with polyneuropathy (E11.42) Active confirmed Vital Signs Blood pressure diastolic 78 mm Hg 08/23/2024 Height 5ft5in in 08/23/2024 Blood pressure systolic 140 mm Hg 08/23/2024 Weight 240 lbs 08/23/2024 BMI 39.93 kg/m2 08/23/2024 Encounters Encounter Location Date Provider Diagnosis [address] [address] 10/27/2023 Manju Perica Xerosis of skin L85. 3 ; Type 2 diabetes mellitus with polyneuropathy E11.42 and Tinea unguium B35.[address] [address] 01/11/2024 Manju Perica Xerosis of skin L85. 3 ; Type 2 diabetes mellitus with polyneuropathy E11.42 and Tinea unguium B35.[address] [address] 03/31/2024 Manju Perica Xerosis of skin L85. 3 ; Type 2 diabetes mellitus with polyneuropathy E11.42 and Tinea unguium B35.[address] [address] 06/13/2024 Manju Perica Xerosis of skin L85. 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 [address] 08/23/2024 Manju Perica Xerosis of skin L85. 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 Assessments Encounter Date Diagnosis (ICD Code) Assessment Notes Treatment Notes Treatment Clinical Notes Section Notes 10/27/2023 Xerosis of skin (ICD-10 - L85.3) 01/11/2024 Xerosis of skin (ICD-10 - L85.3) 01/11/2024 Type 2 diabetes mellitus with polyneuropathy (ICD-10 - E11.42) 03/31/2024 Xerosis of skin (ICD-10 - L85.3) 06/13/2024 Tinea unguium (ICD-10 - B35.1) 06/13/2024 Xerosis of skin (ICD-10 - L85.3) 08/23/2024 Tinea unguium (ICD-10 - B35.1) 08/23/2024 Xerosis of skin (ICD-10 - L85.3) 08/23/2024 Type 2 diabetes mellitus with polyneuropathy (ICD-10 - E11.42) 06/13/2024 Type 2 diabetes mellitus with polyneuropathy (ICD-10 - E11.42) 03/31/2024 Type 2 diabetes mellitus with polyneuropathy (ICD-10 - E11.42) 10/27/2023 Type 2 diabetes mellitus with polyneuropathy (ICD-10 - E11.42) 01/11/2024 Tinea unguium (ICD-10 - B35.1) 10/27/2023 Tinea unguium (ICD-10 - B35.1) 03/31/2024 Tinea unguium (ICD-10 - B35.1) Plan Of Treatment Next Appt Details Provider Name:Manju gray, 11/10/2024 01:45:00 PM, [address] [facility], [place], [address], Insurance Providers Payer Name Payer Address Payer Phone Subscriber Number Group Number Insured Name Patient Relationship to Insured Coverage Start Date Coverage End Date [facility] 65 Medicare Preferred [address] [place] [address] [id number] Rand Delgado Self - patient is the insured Medical (General) History Medical History History ICD Code Arthritis Back,Hip,and Knee pain type II diabetes Hiatal hernia High blood pressure Numbness Reflux ( GERD) Joint implants/screws Surgical History Surgery Date(Month/Year) knee replacement, bilateral 2005, 2007 cervical spine 03/27/2013 gall bladder removal 04/29/2018 hip replacement 04/06/2023 spine surgery 05/24/24
--- OUTSIDE RECORDS SUMMARY | 2024-10-09 13:47 | XMS_ITS | Clinical Summary ---
Author Organization [facility] [address] [facility] Address [address] [place] [address] Phone Care Team Providers Care Manager Strategy & Account Name Role Phone Tramaine Yan NP Primary Care Provider [phone] Allergies No known active allergies Medications amitriptyline (ELAVIL) 50 mg tablet Take by mouth at bedtime. Active docusate sodium (COLACE) 100 mg capsule Take 1 capsule (100 mg total) by mouth 2 (two) times a day. Active apixaban (ELIQUIS) 5 mg tablet Take 1 tablet (5 mg total) by mouth 2 (two) times a day. Active lisinopriL (PRINIVIL,ZESTRI L) 10 mg tablet Take 1 tablet (10 mg total) by mouth 1 (one) time each day. Active melatonin 3 mg tablet Take by mouth. Activ e metFORMIN (GLUCOPHAGE) 500 mg tablet Take 1 tablet (500 mg total) by mouth 2 (two) times a day with meals. Active metoprolol succinate (TOPROL-XL) 100 mg 24 hr tablet Take 1 tablet (100 mg total) by mouth 1 (one) time each day. Do not crush or chew. Active omeprazole (PriLOSEC) [address] capsule Take 1 capsule (20 mg total) by mouth 1 (one) time each day. Do not crush or chew. Active dulaglutide (Trulicity) 3 mg/0.5 mL pen injector injection Inject 0.5 mL (3 mg total) under the skin every 7 (seven) days. Active acetaminophen (TYLENOL) 325 mg suppository Insert into the rectum every 6 (six) hours if needed for mild pain. Active cholecalciferol (VITAMIN D-3) 25 mcg (1,000 unit) tablet Take 1 tablet (1,000 Units total) by mouth 1 (one) time each day. Active fluticasone-salm eterol (ADVAIR DISKUS) 250-50 mcg/dose diskus inhaler Inhale 1 puff by mouth 2 (two) times a day. Rinse mouth with water after use to reduce aftertaste and incidence of candidiasis. Do not swallow. Active Encounters Date Type Department Care Team Description 10/04/2024 Telephone Gastroenterology - [address] [facility] [address] [place] [address] Garret Duenas MD SPECIAL PROCEDURE from Last 3 Months Social History Tobacco Use Types Packs/Day Years Used Date Smoking Tobacco: Never Assessed Comments Unknown Sex and Gender Information Value Date Recorded Sex Assigned at Not on file Legal Sex Female 12:46 PM EST Gender Identity Not on file Sexual Orientation Not on file Plan of Treatment Health Maintenance Due Date Last Done Comments Breast Cancer Screening 1955 DTaP,Tdap,and Td Vaccines (1 - Tdap) 1976 Pneumococcal Vaccine: 50+ Ye ars (1 of 1 - PCV) 2007 Zoster Vaccines (1 of 2) 2007 COVID-19 Vaccine ( - 2023-2 5 season) 2024 Influenza Vaccine (#1) 2024 Colorectal Cancer Screening: Colonoscopy 04/18/2024 Depression Screening 04/18/2024 Falls Risk Assessment 04/18/2024 Hepatitis C Screening 04/18/2024 Medicare Annual Wellness Visit 04/18/2024 Osteoporosis Screening (Bone Density Screening) 04/18/2024 Social Influencers of Health Screening 04/18/2024 RSV Immunization Patients 60 + Years Old (1 - 1-dose 75+ series) 2032 HIB Vaccines Aged Out No longer eligi ble based on patient's age to complete this topic HPV Vaccines Aged Out No longer eligi ble based on patient's age to complete this topic Hepatitis A Vaccines Aged Out No long er eligible based on patient's age to complete this topic Hepatitis B Vaccines Aged Out No long er eligible based on patient's age to complete this topic IPV Vaccines Aged Out No longer eligi ble based on patient's age to complete this topic MMR Vaccines Aged Out No longer eligi ble based on patient's age to complete this topic Meningococcal ACWY Vaccine Aged Out N o longer eligible based on patient's age to complete this topic Meningococcal B Vacine Aged Out No lo nger eligible based on patient's age to complete this topic RSV Immunization Patients Un yamile 20 months Aged Out No longer eligible b ased on patient's age to complete this topic Varicella Vaccines Aged Out No longer eligible based on patient's age to complete this topic Insurance BLUE CROSS - [place] MEDICARE ADVANTAGE Care Teams Manager Strategy & Account Relationship Specialty Start Date End Date Tramaine Yan NP [facility] [address] [place] [address] PCP - General Nurse Practitioner 10/04/24
--- OUTSIDE RECORDS SUMMARY | 2024-10-09 13:48 | XMS_ITS ---
Author Name [facility] Organization Unknown Care Team Organization Name Specialty Phone Email Start Date End [facility] 07/06/2024
--- OUTSIDE RECORDS SUMMARY | 2024-10-09 13:48 | XMS_ITS | Encounter Summary ---
Author Organization [facility] Address [address] [place] [address] Care Team Providers Care Line Camera Operator Name Role Phone Unavailable Primary Care Provider Unavailabl e Encounter Details Date Type Department Care Team (Late st Contact Info) Description 07/06/2024 Scanned Document [facility] [address] [place] [address] Obstetrics And Gynecology, Scan Social History Tobacco Use Types Packs/Day Years Used Date Smoking Tobacco: Never Assessed Sex and Gender Information Value Date Recorded Sex Assigned at Not on file Gender Identity Not on file Sexual Orientation Not on file documented as of this encounter Plan of Treatment Not on file documented as of this encounter Visit Diagnoses Not on filedocumented in this encounter
--- OUTSIDE RECORDS SUMMARY | 2024-10-09 13:48 | XMS_ITS | Encounter Summary ---
Author Organization [facility] Address [address] [place] [address] Care Team Providers Care Inside Sales Advisor Name Role Phone Tramaine Yan NAIL ASSEMBLY MACHINE OPERATOR Primary Care Provider [phone] Reason for Visit * Reason Onset Date Comments SPECIAL PROCEDURE 10/04/2024 Encounter Details Date Type Department Care Team (Late st Contact Info) Description 10/04/2024 Telephone Gastroenterology - [address] [place] [address] Garret Duenas MD [address] [place] [address] SPECIAL PROCEDURE Social History Tobacco Use Types Packs/Day Years Used Date Smoking Tobacco: Never Assessed Comments Unknown Sex and Gender Information Value Date Recorded Sex Assigned at Not on file Legal Sex Female 12:46 PM EST Gender Identity Not on file Sexual Orientation Not on file documented as of this encounter Progress Notes * Charbel Hein MA - 10/04/2024 10:56 AM EDT Medications and allergies updated. * Jocy Morse - 10/04/2024 10:33 AM EDT RECEIVED REFERRAL FROM TRAMAINE YAN, [facility], FOR COLON, INSURANCE VERIFIED [facility] ADV PPO, MEDIATION/ALLERGY ATTACHED, PATIENT IS ESTABLISHED , GIVING TO CLINICAL STAFF documented in this encounter Plan of Treatment Not on file documented as of this encounter Visit Diagnoses Not on filedocumented in this encounter Historical Medications * This list may reflect changes made after this encounter. fluticasone-salme terol (ADVAIR DISKUS) 250-50 mcg/dose diskus inhaler Inhale 1 puff by mouth 2 (two) times a day. Rinse mouth with water after use to reduce aftertaste and incidence of candidiasis. Do not swallow. cholecalciferol (VITAMIN D-3) 25 mcg (1,000 unit) tablet Take 1 tablet (1,000 Units total) by mouth 1 (one) time each day. acetaminophen (TYLENOL) 325 mg suppository Insert into the rectum every 6 (six) hours if needed for mild pain. dulaglutide (Trulicity) 3 mg/0.5 mL pen injector injection Inject 0.5 mL (3 mg total) under the skin every 7 (seven) days. omeprazole (PriLOSEC) [address] capsule Take 1 capsule (20 mg total) by mouth 1 (one) time each day. Do not crush or chew. metoprolol succinate (TOPROL-XL) 100 mg 24 hr tablet Take 1 tablet (100 mg total) by mouth 1 (one) time each day. Do not crush or chew. metFORMIN (GLUCOPHAGE) 500 mg tablet Take 1 tablet (500 mg total) by mouth 2 (two) times a day with meals. melatonin 3 mg tablet Take by mouth. lisinopriL (PRINIVIL,ZESTRIL ) 10 mg tablet Take 1 tablet (10 mg total) by mouth 1 (one) time each day. apixaban (ELIQUIS) 5 mg tablet Take 1 tablet (5 mg total) by mouth 2 (two) times a day. docusate sodium (COLACE) 100 mg capsule Take 1 capsule (100 mg total) by mouth 2 (two) times a day. amitriptyline (ELAVIL) 50 mg tablet Take by mouth at bedtime. added in this encounter Care Teams Inside Sales Advisor Relationship Specialty Start Date End Date Tramaine Yan NP [facility] [address] [place] [address] PCP - General Nurse Practitioner 10/04/24 documented as of this encounter
--- OUTSIDE RECORDS SUMMARY | 2024-10-09 13:48 | XMS_ITS ---
Author Organization [facility] Address [address] [facility] [place] [address] Care Team Providers Care Orthopaedic Doctor Name Role Phone Tramaine Yan Primary Care Provider Manju [place] Unavailable [phone] Allergies No Known Allergies REASON FOR VISIT At Risk Footcare, Skin problem(s) Medications Medication SIG (Take, Route, Frequency, Duration) Notes Start Date End Date Status Amitriptyline HCl 50 MG TAKE 1 TABLET BY MOUTH AT BEDTIME Oral for 90 Days Active Atorvastatin Calcium 10 MG TAKE 1 TABLET BY MOUTH EVERYDAY AT BEDTIME Oral for 30 Days Active Trulicity 1.5 MG/0.5ML as directed Subcutaneous for 28 days Active Colace 100 MG 1 capsule as needed Orally Once a day Active Naproxen 440mg 2x per day Active metFORMIN HCl 500 MG 1 tablet with a paradise l Orally Once a day Active albuterol Active Vitamin D Active Probiotic Active Multivitamin Active Tylenol Active Wixela Inhub Active Ammonium Lactate 12 % 1 application to affected area Externally Twice a day to dry areas of skin on feet for 30 days 08/23/2024 Active traMADol HCl 50 MG 1 tablet as needed Orally Once a day Not-Taking metFORMIN HCl 500 MG 1 tablet with a paradise l Orally Once a day Not-Taking Omeprazole 20 MG TAKE 1 CAPSULE BY MOUTH TWICE A DAY Oral for 90 Days Active Lisinopril 10 MG Oral for 90 Days Active Extra Depth Orthopedic Shoes (1 Pair) with Customized Heat Molded Multidensity Innersoles (3 Pair) as directed Dx: NIDDM/Polyneuropathy (E11.42), Hammertoe Foot Deformity (M20.41,M20.42), Preulcerative Skin Lesion(s) (L85.1 03/02/2023 Active Lidocaine 5 % 1 patch remove after 12 hours Externally Once a day Not-Taking Roflumilast Not-Taki ng Metoprolol Succinate ER 100 MG TAKE 1 TABLET BY MOUTH EVERY DAY Oral for 90 Days Active Social History Tobacco Use: Social History [...] user? No Vital Signs Height 5ft5in in 08/23/2024 Weight 240 lbs 08/23/2024 BMI 39.93 kg/m2 08/23/2024 Blood pressure systolic 140 mm Hg 08/23/19 25 Blood pressure diastolic 78 mm Hg 025 Encounters Encounter Location Date Provider Diagnosis [facility] [address] [address] 08/23/2024 Manju Hodges Xerosis of skin L85. 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 Assessments Encounter Date Diagnosis (ICD Code) Assessment Notes Treatment Notes Treatment Clinical Notes Section Notes 08/23/2024 Xerosis of skin (ICD-10 - L85.3) 08/23/2024 Tinea unguium (ICD-10 - B35.1) 08/23/2024 Type 2 diabetes mellitus with polyneuropathy (ICD-10 - E11.42) Plan Of Treatment Medication Medication Name Sig Start Date Stop Date Notes Ammonium Lactate 12 % 1 application to a ffected area Externally Twice a day to dry areas of skin on feet for 30 days 08/23/2024 Next Appt Details Follow Up: 2 Months, Reason: Provider Name:Manju gray, 11/10/2024 01:45:00 PM, [address] [place] [address], [id number], Procedure Notes * Category Sub-Category Detail Notes Debride Nail 6-10 Nail debridement Due to the cl inical pathology outlined in the exam findings, performance of this nail treatment is medically necessary as its management by an unskilled/untrained nonprofessional would put this patients foot and overall health at risk. Therefore, debridement to affected nail(s), as described in exam ( TA, T1, T2, T3, T4, T5, T6, T7, T8, T9, ), was performed exclusively by the physician of record to reduce/remove overall nail length, girth, thickness, subungual debris, and necrotic tissue, by manual and/or electrical means through the use of a nail nipper and/or dremel-type computer numerical control grinder, to a more viable healthy nail [...] to maintain effectiveness in symptomatic relief - 98588 Keratoma Treatment Parring or Cutting o f Benign Hyperkeratotic Lesion(s) (-57) More than 4 Lesions - Due to the at risk nature of the patients medical condition as documented in the exam findings, performance of this keratoderma treatment is medically necessary as its management by an unskilled/untrained nonprofessional would put this patients foot and overall health at risk. Therefore, the benign hyperkeratotic lesions, ( 8 ) in total, locations as stated and described in the exam ( Medial plantar TA T4 T5 T9 SUB MTH (s) 1 5 Heel(s) B/L ,), were pared, and/or cut utilizing a sterile 15 blade, tissue nippers, and/or power dremel instrumentation by the physician of record - 42437 Progress Notes * Rand DIAZ ADOB: [birth year] (69 yo F)Acc No.[id number]:08/23/2024 Progress Note Patient:?Rand DIAZ Provider:?Manju Hodges DPM :1955???Age:69 Y???Sex:Female D ate:08/23/2024 Address:[address] [place] [id number] Pcp:Tramaine Yan Subjective: * Chief Complaints: * ???At Risk FootcareSkin prob ashwini(s) * HPI: ???At Risk footcare:?Pt States Last PCP Visit:?Date?07/12/2024 ???Skin problems:?Location:?B/L .?Duration:?several months.?Course:?unresolved.?Treatments:?medication ( Gold Rosario),, admits intermittent adherence to recommended application.? * ROS:?General/Constitutional:?Nausea?denies.?Vomiting?denies.?Hunger Thirst?denies.?Loss appetite?denies.?Chills?denies.?Fatigue?denies.?Fever?denies.?Night Sweats?denies.?Unexplained weight loss?denies.?Unexplained [...] * Family History:?Mother: angel degroot, diagnosed with Other malignant neoplasm of unspecified site, Diabetic - NIDDM, Unspecified essential hypertension, Family history of arthritis.?Father: .?Paternal Grand Mother: diagnosed with Diabetic - [...] yes, frequency: , 2-3 cups per day. ?Children: no. ?Exercise: no. ?Marital status: . 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 * Medications:?TakingWixela In hub Tylenol metFORMIN HCl 500 MG Tablet 1 tablet with a meal Orally Once a day albuterol Vitamin D Probiotic Multivitamin Colace 100 MG Capsule 1 capsule as needed Orally Once a day Naproxen , Notes to Pharmacist: 440mg 2x per dayAtorvastatin Calcium 10 MG Tablet TAKE 1 TABLET BY MOUTH EVERYDAY AT BEDTIME Oral Trulicity 1.5 MG/0.5ML Solution Auto-injector as directed Subcutaneous Amitriptyline HCl 50 MG Tablet TAKE [...] MOUTH EVERYDAY AT BEDTIME Oral Taking Trulicity 1.5 MG/0.5ML Solution Auto-injector as directed Subcutaneous Taking Amitriptyline HCl 50 MG Tablet [...] Medication List reviewed and reconciled with the patientNot-Taking/PRN Lidocaine 5 % Patch 1 patch remove [...] Vitals:?Ht: 5ft5in, Wt:240, BMI:39.93, Shoe size: 8W, BP:140/78mm Hg, BS: not taken, Ht-cm: 165.1 cm, Wt-k.86 kg. * ???Past Orders: ???Lab:HEMOGLOBIN A1C (GLYCO HEMOGLOBIN) (Order Date - 07/12/2024) (Collection Date & Time - 07/12/2024 09:26 AM) ? Value Reference Range ?HEMOGLOBIN A1C % (HH) 6.5 * Examination: ???Ophthalmology Referral: ?DIABETES EYE EXAM?Procedure Performed:?Yes ?Date of Exam Performed?02/10/2024 ?Findings of Diabetic Eye Exam:?no retinopathy?Neurological: ?SENSORY:? Neurological exam demonstrates, reduced light touch [...] stocking fashion, no fissure(s) present, B/L.?Vascular: ?DP PULSES (B):? 1/4, B/L.?PT PULSES (B):? 1/4, B/L.?CAPILLARY FILL TIME:?immediate, all digits, B/L.?TROPHIC CONDITION-TEXTURE/ELASTICITY/TURGOR/HAIR GROWTH (B):? decreased.?TEMPERTURE GRADIENT (C):?normal, warm to cool, proximal to distal, B/L, B/L.?PIGMENTATION:? pale, B/L.?EDEMA (C):? 2/4 B/L.?Orthopedic: ?MUSCLE STRENGTH:?5/5 all groups in [...] for office visit today.?ORIENTED:?person, place, and time.?FOOT EXAM:?Lower Extremity Neurological Exam performed:?Yes ?Visual exam of foot performed:?Yes ?Date?08/23/2024 ?Footwear Evaluation?Footwear Evaluation performed:?Yes??? Assessment: * Assessment: 1.?Tinea unguium - B35.1???2 .?Xerosis of skin - L85.3 (Primary)???Specify :Acute problem, Uncomplicated (3)???3.?Type 2 diabetes mellitus with polyneuropathy - E11.42??? Plan: * Treatment: * Procedures:?Debride Nail 6-10:?Nail debridement?Due to the clinical pathology outlined in the exam findings, performance of this nail treatment is medically necessary as its management by an unskilled/untrained nonprofessional would put this patients foot and overall health at risk. Therefore, debridement to affected nail(s), as described in exam ( TA, T1, T2, T3, T4, T5, T6, T7, T8, T9, ), was performed exclusively by the physician of record to reduce/remove overall nail length, girth, thickness, subungual debris, and necrotic tissue, by manual and/or electrical means through the use of a nail nipper and/or dremel-type computer numerical control grinder, to a more viable healthy nail plate or bed tissue 6- 10 nails in total. Silver nitrate was used for any petechial bleeding as necessary. Definitive antifungal treatment options, both pharmaceutical and surgical, have been reviewed and discussed with the patient. The patient solely prefers the use of intermittent/as needed professional debridement services for their nail condition and understands the need for additional periodic treatments to maintain effectiveness in symptomatic relief - 24749.?Keratoma Treatment:?Parring or Cutting of Benign Hyperkeratotic Lesion(s)?(-57) More than 4 Lesions - Due to the at risk nature of the patients medical condition as documented in the exam findings, performance of this keratoderma treatment is medically necessary as its management by an unskilled/untrained nonprofessional would put this patients foot and overall health at risk. Therefore, the benign hyperkeratotic lesions, ( 8 ) in total, locations as stated and described in the exam (?Medial plantar?TA?T4?T5?T9?SUB MTH (s)?1?5?Heel(s)?B/L?,), were pared, and/or cut utilizing a sterile 15 blade, tissue nippers, and/or power dremel instrumentation by the physician of record - 14857.? * Procedure Codes:?93908 DEBRI DE NAIL, 6 OR MORE, Modifiers: XS 62682 TRIM SKIN LESIONS, OVER 4, Modifiers: XS [...] patient verbalized that all answers were clearly understood. The patient has decided to apply Rx skin creams to their feet save the interspaces while paying special attention to the heels. Such was sent to their pharmacy at the time of visit.? * Follow Up:?2 Months * Images: * Sign off status: Completed true * Provider:?Manju Hodges DPM Date:?06/2025 Generated for Omar gallegos/Jesus/Jagjit on:?10/09/2024 01:47 PM EDT History and Physical Notes * HPI (History of Present Illness) Category Sub-Category Detail Notes Category Not es Skin problems Location: B/L Duration: several months Course: unresolved Treatments: medication ( Gold Jhon nd),, admits intermittent adherence to recommended application At Risk footcare Pt States Last PCP Visit: Date: Examination Category Sub-Category Detail Notes Category Not [...] Lower Extremity Neurological Exa m performed:: Yes Visual exam of foot performed:: Yes Date: 08/23/2024 ORIENTED: person, place, and t [place] Footwear Evaluation Footwear Evaluation performe d:: Yes Ophthalmology Referral DIABETES EYE EXAM Procedure Perform ed:: Yes ?Date of Exam Performed: 02/10/2024 Findings of Diabetic Eye Exam:: no retin [...]
--- OUTSIDE RECORDS SUMMARY | 2024-10-09 13:48 | XMS_ITS ---
Author Organization [facility] Address [address] [address] Care Team Providers Care Electrical Maintenance Supervisor Name Role Phone Tramaine Yan Primary Care Provider Manju [place] Unavailable [phone] Allergies No Known Allergies REASON FOR VISIT [...] 024 Encounters Encounter Location Date Provider Diagnosis [facility] [address] [address] 03/31/2024 Manju Hodges Xerosis of skin L85. [...] Reason: Provider Name:Manju gray, 11/10/2024 01:45:00 PM, [address] [place], [phone], Procedure Notes * Category Sub-Category Detail Notes [...] or Cutting o f Benign Hyperkeratotic Lesion(s) 76662 ( More than 4 Lesions ) - The Benign hyperkeratotic lesions, as described above were pared, and/or cut utilizing a sterile 15 blade, tissue nippers, and/or dremel Progress Notes * Rand DIAZ ADOB: [birth year] (68 yo F)Acc No.[id number]:03/31/2024 Progress Note Patient:?Rand Diaz Provider:?Manju Hodges DPM :1955???Age:68 Y???Sex:Female D ate:03/31/2024 Address:[address] [place] [address], [place], [id number] Pcp:Tramaine Yan Subjective: * Chief Complaints: * [...] 7.3 * Examination: ???Ophthalmology Referral: ?DIABETES EYE EXAM?Diabetic Retinopathy Screening:?No ?Findings of Diabetic Eye Exam:?no retinopathy?Neurological: ?SENSORY:? [...] and time.?FOOT EXAM:?Lower Extremity Neurological Exam performed:?Yes ?Footwear Evaluation?Footwear Evaluation performed:?Yes??? Assessment: * Assessment: 1.?Xerosis of skin - [...] antifungal.?Keratoma Treatment:?Parring or Cutting of Benign Hyperkeratotic Lesion(s)?24098 ( More than 4 Lesions ) - The Benign hyperkeratotic lesions, as described above were pared, and/or cut utilizing a sterile 15 blade, tissue nippers, and/or dremel.? * Procedure Codes:?36976 DEBRI DE NAIL, 6 OR MORE, Modifiers: XS 65428 TRIM SKIN LESIONS, OVER 4, Modifiers: XS [...] status: Completed true * Provider:?Manju Hodges DPM Date:? Generated for Omar gallegos/Jesus/Jagjit on:?10/09/2024 01:48 PM EDT History and Physical Notes * HPI (History of Present Illness) Category Sub-Category Detail Notes Category Not es Skin problems Location: B/L Duration: several months Treatments: medication ( Gold Hjon nd) At Risk footcare Pt States Last [...] stocking fashion, no fissure(s) present, B/L Orthopedic FOOTWEAR EVALUATION: worn, non-s upportive, shoe gear properties exacerbate patient's foot/toe deformity [...]
--- OUTSIDE RECORDS SUMMARY | 2024-10-09 13:48 | XMS_ITS | Clinical Summary ---
Author Organization [facility] Address [address] [place] [address] Care Team Providers Care Tumbler Machine Operator Helper Name Role Phone Unavailable Primary Care Provider Unavailabl e Social History Tobacco Use Types Packs/Day Years Used Date Smoking Tobacco: Never Assessed Sex and Gender Information Value Date Recorded Sex Assigned at Not on file Gender Identity Not on file Sexual Orientation Not on file Plan of Treatment Health Maintenance Due Date Last Done Comments Hepatitis C Virus Screening 1955 DTaP/Tdap/Td Vaccines (1 - Tdap) 1976 Pneumococcal Vaccines 50+ (1 of 1 - PCV) 2007 Zoster (Shingles) Vaccine (1 of 2) 2007 COVID-19 Vaccine ( - 2023-2 5 season) 2024 RSV Vaccine 60 years and old er and Patients (1 - 1-dose 75+ series) 2032 Hepatitis B Vaccines Aged Out No long er eligible based on patient's age to complete this topic
--- OUTSIDE RECORDS SUMMARY | 2024-10-09 13:48 | XMS_ITS ---
Author Organization [facility] Address [address] [facility] [place] [address] Care Team Providers Care Lamination Inspector Name Role Phone Tramaine Yan Primary Care Provider Manju Montana Unavailable [phone] Allergies No Known Allergies REASON FOR VISIT [...] 024 Encounters Encounter Location Date Provider Diagnosis [facility] [address] [address] 06/13/2024 Manju Hodges Xerosis of skin L85. [...] Reason: Provider Name:Manju gray, 11/10/2024 01:45:00 PM, [address] [place] [address], [phone], Procedure Notes * Category Sub-Category Detail Notes [...] use of a nail nipper and/or dremel-type external grinder tender, to a more viable healthy nail plate [...] to maintain effectiveness in symptomatic relief - 69329 Keratoma Treatment Parring or Cutting o f Benign Hyperkeratotic Lesion(s) (-57) More than 4 Lesions - The Benign hyperkeratotic lesions, ( 8) in total, locations as stated and described in exam, were pared, and/or cut utilizing a sterile 15 blade, tissue nippers, and/or power dremel instrumentation - 45432 Progress Notes * Rand DIAZ ADOB: [birth year] (68 yo F)Acc No.[id number]:06/13/2024 Progress Note Patient:?Rand DIAZ Provider:?Manju Hodges DPM :1955???Age:68 Y???Sex:Female D ate:06/13/2024 Address:[address] [place] [address], [place], [id number] Pcp:Tramaine Yan Subjective: * Chief Complaints: * [...] 6.9 * Examination: ???Ophthalmology Referral: ?DIABETES EYE EXAM?Procedure Performed:?Yes ?Date of Exam Performed?04/11/2024 ?Findings of Diabetic Eye Exam:?no retinopathy?Neurological: ?SENSORY:? [...] fashion, no fissure(s) present, B/L.?Vascular: ?DP PULSES(B):? /, B/L.?PT PULSES(B):? 07/15, B/L.?CAPILLARY FILL TIME:?immediate, all digits, B/L.?TROPHIC CONDITION-TEXTURE/ELASTICITY/TURGOR/HAIR [...] performed:?Yes??? Assessment: * Assessment: 1.?Tinea unguium - B35.1 [...] use of a nail nipper and/or dremel-type external grinder tender, to a more viable healthy nail plate [...] to maintain effectiveness in symptomatic relief - 79569.?Keratoma Treatment:?Parring or Cutting of Benign Hyperkeratotic Lesion(s)?(-57) More than 4 Lesions - The Benign hyperkeratotic lesions, ( 8) in total, locations as stated and described in exam, were pared, and/or cut utilizing a sterile 15 blade, tissue nippers, and/or power dremel instrumentation - 57032.? * Procedure Codes:?09172 DEBRI DE NAIL, 6 OR MORE, Modifiers: XS 49194 TRIM SKIN LESIONS, OVER 4, Modifiers: XS * Follow Up:?2 Months * Images: * Sign off status: Completed true * Provider:?Manju Hodges DPM Date:?09/2023 Generated for Omar gallegos/Jesus/Jagjit on:?10/09/2024 01:47 PM [...]
== END 2024-10-09 13:26 | disposition home or self-care (01) ==
LOC: HO.HWS 12:07
PROVIDERS: PCP Nurse Practitioner; Visit Provider Obstetrics & Gynecology
DX: R14.0 Abdominal distension (gaseous) (principal)
CPT/HCPCS: 99213

== ENCOUNTER → 2025-01-09 09:57 | Outpatient (BNV) | payer MEDICARE, SELFPAY | PROVIDERS: Emergency Provider Emergency Medicine; PCP Nurse Practitioner; Visit Provider Radiology Diagnostic Radiology | DX: R91.1 Solitary pulmonary nodule (principal); R07.9 Chest pain, unspecified | CPT/HCPCS: 71045; 71275 ==

== ENCOUNTER 2025-01-09 10:16 | Emergency (ER) | payer MEDICARE, SELFPAY ==
--- NOTE | ~2025-01-09 | CT_ITS ---
EXAMINATION: CT ANGIOGRAM CHEST CLINICAL INFORMATION: Pleuritic chest pain and cough COMPARISON: None available. TECHNIQUE: Multiple axial images were obtained through the chest after the administration of 65 mL of Omnipaque 350 intravenous contrast. Extensive vascular post-processing including two-dimensional and three-dimensional reformatted images were created and reviewed on an independent workstation. This CT examination was performed using dose optimization techniques as appropriate, variously including the following: *Automated exposure control *Adjustment of mA and/or kV according to patient size (this includes techniques or standardized protocols for targeted exams where dose is matched to indication/reason for exam; i.e. extremities or head) *Use of iterative reconstruction technique DLP: 500 mGY*cm FINDINGS: QUALITY OF STUDY/CONTRAST BOLUS: Adequate. Mild beam hardening artifact related to high density contrast in the superior vena cava. PULMONARY ARTERIES: No filling defects. THORACIC AORTA: Unremarkable. LUNGS AND PLEURA: There is mild groundglass density in the lower lung zones. There is a 3 x 5 mm solid pulmonary nodule in the superior lingular segment. Mild dependent atelectasis is noted. There is no pleural effusion. MEDIASTINUM: No adenopathy Normal heart size. CORONARY ARTERY CALCIFICATION: None visible CHEST WALL/AXILLA: No axillary or internal mammary lymphadenopathy. UPPER ABDOMEN: There are surgical clips in the gallbladder fossa and extra hepatic bowel duct dilation.. Simple renal cyst is present in the right kidney. BONES: There is disc space narrowing and vacuum phenomena with anterior osteophytes throughout the thoracic spine. There are [id number] degenerative changes in the left shoulder joint. CT/CT angio chest PE protocol IMPRESSION: No visualized pulmonary embolus. Nonspecific groundglass densities are present in the lower lungs. 3 x 5 mm subpleural pulmonary nodules present in the superior lingular segment. No further follow-up is indicated per Fleischner Society recommendations, unless the patient falls into a high risk category, in which case a 12 month follow-up CT chest without contrast is optional. High risk patients includes those with a history of smoking, first-degree relative with lung cancer, or exposure to uranium, radon, or asbestos. Electronically signed by: Guille Contreras MD 01/09/2025 12:41 PM EDT
--- NOTE | ~2025-01-09 | XR_ITS ---
EXAMINATION: XR CHEST CLINICAL INFORMATION: cp/sob COMPARISON: None available. TECHNIQUE: Frontal view of the chest was obtained. FINDINGS: Right reticular pattern with mild prominence of the interstitial markings in the perihilar region. No gross consolidation pleural effusion or pneumothorax. No hyperinflation. Cardiomediastinal silhouette size is normal. Multilevel thoracic spondylosis. Degenerative changes in the acromioclavicular joints. Radiopaque material overlapping the lower cervical spine. XR/XR chest 1V IMPRESSION: Chronic interstitial lung disease. Mild interstitial lung edema versus acute small airway inflammatory processes cannot be excluded. Electronically signed by: Catrachito Anderson MD 01/09/2025 11:03 AM EDT
--- NOTE | 2025-01-09 10:22 | ECG_ITS ---
Test Reason : CP/SOB Blood Pressure : */* mmHG Vent. Rate : 91 BPM Atrial Rate : 91 BPM P-R Int : 204 ms QRS Dur : 88 ms QT Int : 340 ms P-R-T Axes : 46 -4 15 degrees QTcB Int : 418 ms Normal sinus rhythm Possible Inferior infarct , age undetermined Anterior infarct , age undetermined Abnormal ECG No previous ECGs available Referred By: Generic ED Physician Electronically Signed By: NAZ SAENZ MD
[2025-01-09 10:23] VITALS: BP 138/92; PULSE 115; O2SAT 95
[2025-01-09 10:32] VITALS: BP 116/77; PULSE 104; RESP 14; TEMP 37.4; O2SAT 95; BMI 37.9
[2025-01-09 10:55] LABS: MANUAL DIFF FLAG NO
[2025-01-09 10:58] LABS: Hematocrit 41.9 % (37.0-47.0); Hemoglobin 14.3 g/dl (12.0-16.0); Imm Gran Abs Auto 0.22 X10*3/uL (0.00-0.03); Imm Gran Pct Auto 1.5 % (0.0-0.4); Lymphocytes Absolute Auto 2.1 X10*3/uL (1.2-4.9); Mean Corpuscular HGB Conc 34.1 g/dl (31.0-35.0); Mean Corpuscular Hemoglobin 28.7 pg (27.0-33.0); Mean Corpuscular Volume 84.0 fL (80.0-98.0); NRBC Abs Auto 0.000 X10*3/uL (0.0-0.012); NRBC Pct Auto 0.0 /100WBC (0.0-0.2); Platelet Count 327 X10*3/uL (160-400); Red Blood Count 4.99 X10*6/uL (4.20-5.50); White Blood Count 14.9 X10*3/uL (4.8-10.8)
[2025-01-09 11:02] LABS: INTERNATIONAL NORM RATIO 1.0 (0.9-1.1); Prothrombin Time 11.6 SEC (10.9-12.4)
[2025-01-09 11:11] LABS: Alanine Aminotransferase 19 U/L (0-31); Albumin Level 3.9 g/dL (3.5-5.0); Alkaline Phosphatase 64 U/L (39-117); Anion Gap 13 (12-20); Aspartate Amino Transferase 23 U/L (5-31); Blood Urea Nitrogen 14 mg/dL (9-16); Calcium 9.5 mg/dL (8.4-10.2); Carbon Dioxide 21 mmol/L (22-29); Chloride 108 mmol/L (96-108); Creatinine Clr Calc Pharmacy 72.3; Estimated Glomerular Filt Rate > 60; Potassium 3.8 mmol/L (3.3-5.1); Sodium 138 mmol/L (135-145); Total Protein 7.2 g/dL (6.5-8.0)
--- NOTE | 2025-01-09 11:13 | ED_ITS ---
HPI - General Adult General Chief complaint: General Medical Stated complaint: CP ON BREATHING, 1 WEEK CONSTIPATION PER EMS Time Seen by Provider: 01/09/25 11:04 History of Present Illness ED Provider: Kentrell Phan MD HPI narrative: 69-year-old female active smoker with COPD reports pleuritic pain since this morning ongoing. Centrally no radiation. No history of coronary disease she has got COPD active smoker and had treatment for about 3 months for an SVT of the right lower extremity she says she was taken off this blood thinner about a week ago. Related Data Home Medications ?Medication ?Instructions ?Recorded ?Confirmed amitriptyline 50 mg tablet 50 mg PO BEDTIME 04/22/21 lisinopril 10 mg tablet 10 mg PO DAILY 04/22/21 metoprolol succinate 100 mg 100 mg PO DAILY 04/22/21 tablet,extended release 24 hr dulaglutide 0.75 mg/0.5 mL 0.75 mg subcut QWEEK subcutaneous pen injector (Trulicity) atorvastatin 10 mg tablet 10 mg PO DAILY 06/21/23 omeprazole 20 mg capsule,delayed 20 mg PO BID 10/04/23 release nebulizers 01/10/24 Previous Rx's ?Medication ?Instructions ?Recorded albuterol sulfate 2.5 mg/3 mL 2.5 mg (3 mL) inhalation Q6H 30 10/04/23 (0.083 %) solution for nebulization days #180 mL fluticasone 250 mcg-salmeterol 50 1 inh inhalation Q12 H 90 days #3 ea 01/10/24 mcg/dose blistr powdr for inhalation (Wixela Inhub) roflumilast 250 mcg tablet 250 mcg PO DAILY 30 days #3 0 tabs 01/10/24 (Daliresp) Allergies Allergy/AdvReac Type Severity Reaction Status Date / Time No Known Allergies Allergy Verified 01/09/25 10:36 [facility] Past Medical History Medical History Tobacco dependence Pulmonary nodules COPD (chronic obstructive pulmonary disease) Chronic bronchitis Acute arthritis Fluttering heart Hypertension Obesity Diabetes type 2, controlled Surgical History History of hip surgery History of bilateral knee replacement H/O cervical spine surgery Family History Family History Mother Breast CA Diabetes HTN (hypertension) Paternal Grandmother Breast CA Social History Social History Household Members: Spouse Housing: House Alcohol intake: never Patient Tobacco Use Status: Current someday Tobacco user Cigarettes Per Day: 10 Years Smoked: 35 Advance Directives: No Advance Directives Information Provided: Yes Do you have a plan to hurt others: No Plan Current occupational status: retired Sexual orientation: Straight/Heterosexual Gender identity: Female Physical Exam ED Vital Signs: Vital Signs - 24 hr 01/09/25 10:32 Temperature 99.3 F Pulse Rate 104 H Respiratory Rate 14 Blood Pressure 116/77 Pulse Oximetry 95 Oxygen Delivery Method Room Air BMI result Body Mass Index 37.9 Const Other: EXAM: Gen: Alert, awake, well appearing, well hydrated. Head: Atraumatic Eyes: Anicteric, Normal conjunctiva. ENT: Moist mucosa, no pallor. ? Neck: Supple. Skin: ?No observable rash or bruising on exposed or examined skin Respiratory: Breathing comfortably, No distress.Clear to auscultation bilaterally, symmetric chest expansion, No wheeze, rales, ronchi. Cardiovascular: Tachycardic about 102 and rhythm. No murmurs or rub. Well perfused periphery, warm extremities. No edema. ? Abdominal: No FOCAL TENDERNESS. Soft, no objective distension. No palpable masses or obvious organomegaly. ?No guarding, no rebound tenderness or other peritoneal findings. : No flank tenderness. Neuro: Alert. Gross movement of all extremities intact. ? Psych: Calm. Cooperative. MSK: No grossly visible deformity. Vital signs: See flowsheet Medications Administered Discontinued Medications Generic Name Dose Route Start Last Admin Trade Name Freq PRN Reason Stop Dose Admin Iohexol 100 ml 01/09/25 12:18 01/09/25 12:18 Iohexol 350 Mg/Ml 100 Ml Infus..Btl IV 01/09/25 12:19 65 ml ONCE ONE Administration Loperamide HCl 2 mg 01/09/25 11:12 01/09/25 11:28 Loperamide Hcl 2 Mg Capsule PO 01/09/25 11:13 2 mg ONCE ONE Administration Medical Decision Making Medical Decision Making MDM Narrative: 69-year-old female smoker, COPD history with mild pleuritic pain. Awake alert oriented looks well. Mild tachycardia, sinus rhythm at the bedside. Recent superficial thrombosis of the lower extremities with resolution per the patient was told by vascular surgery to stop the anticoagulant about a week ago. She does have some mild abdominal discomfort with no abdominal tenderness. She has had diarrhea no recent antibiotics or risks for C diff. she has a reassuring abdominal exam and looks well hydrated supportive therapy only for the diarrhea. Regarding her chest discomfort felt it was reasonable given the sinus tachycardia and recent SVT cessation of anticoagulation to exclude PE. We have excluded PE on the CT. Nodules seen which may need follow up . Patient informed of this and printed instructions in detail to provide her primary doctor Differential Diagnosis Pleuritis, pericarditis, PE, COPD Diarrhea: Gastroenteritis viral, electrolyte derangement, dehydration, less likely C diff or bacterial diarrheal illness Lab Data MDM Lab Attestation statement: I reviewed the patient's lab results. Nonspecific leukocytosis 01/09/25 10:50 01/09/25 10:50 Labs: Lab Results 01/09/25 Range/Units 10:50 WBC 14.9 H (4.8-10.8) X10*3/uL RBC 4.99 (4.20-5.50) X10*6/uL Hgb 14.3 (12.0-16.0) g/dl Hct 41.9 (37.0-47.0) % MCV 84.0 (80.0-98.0) fL MCH 28.7 (27.0-33.0) pg MCHC 34.1 (31.0-35.0) g/dl RDW 14.3 (11.0-16.0) % Plt Count 327 (160-400) X10*3/uL MPV 8.6 L (9.4-12.3) fL Immature Gran % (Auto) 1.5 H (0.0-0.4) % Neut % (Auto) 77.6 H (45-73) % Lymph % (Auto) 14.1 L (20-40) % [place] % (Auto) 5.0 (2-11) % Eos % (Auto) 1.2 (0-4) % Baso % (Auto) 0.6 (0-2) % Lymph # (Auto) 2.1 (1.2-4.9) X10*3/uL [place] # (Auto) 0.8 (0.1-1.2) X10*3/uL Eos # (Auto) 0.2 (0.0-0.4) X10*3/uL Baso # (Auto) 0.1 (0.0-0.2) X10*3/uL Abs Immat Gran (auto) 0.22 H (0.00-0.03) X10*3/uL Absolute Neuts (auto) 11.6 H (2.0-8.3) x10*3/uL Absolute Nucleated RBC 0.000 (0.0-0.012) X10*3/uL Nucleated RBC % (auto) 0.0 (0.0-0.2) /100WBC PT 11.6 (10.9-12.4) SEC INR 1.0 (0.9-1.1) Sodium 138 (135-145) mmol/L Potassium 3.8 (3.3-5.1) mmol/L Chloride 108 (96-108) mmol/L Carbon Dioxide 21 L (22-29) mmol/L Anion Gap 13 (12-20) BUN 14 (9-16) mg/dL Creatinine 0.90 (0.5-1.4) mg/dL Estim Creat Clear Calc 72.3 Estimated GFR > 60 Random Glucose 138 H (60-115) mg/dL Calcium 9.5 (8.4-10.2) mg/dL Total Bilirubin 0.3 (0.0-1.0) mg/dL AST 23 (5-31) U/L ALT 19 (0-31) U/L Alkaline Phosphatase 64 (39-117) U/L Troponin I High Sens < 2.7 (<3.5-17.0) ng/L B-Natriuretic Peptide < 10 (<100) pg/mL Total Protein 7.2 (6.5-8.0) g/dL Albumin 3.9 (3.5-5.0) g/dL Influenza Type A (PCR) NEGATIVE (Negative) Influenza Type B (PCR) NEGATIVE (Negative) RSV RNA Qual (PCR) NEGATIVE (Negative) SARS-CoV-2 RNA (RT-PCR) NEGATIVE (Negative) Independent Interpretation I performed an independent interpretation of an: EKG (Sinus rhythm rate 91 QTC 418. Subtle and nonspecific isolated ST depression in V3. ) Radiology Impression Discussion of test interpretation with radiology: I have reviewed the radiologist's reading. Discharge Plan Discharge Clinical Impression: COPD (chronic obstructive pulmonary disease) Qualifiers: COPD type: chronic bronchitis Chronic bronchitis type: mixed simple and mucopurulent Qualified Code(s): J41.8 - Mixed simple and mucopurulent chronic bronchitis Patient Disposition: Home, Self-Care Instructions: COPD (Chronic Obstructive Pulmonary Disease) (ED) Additional Instructions: _ DISCHARGE DIAGNOSES: Chest pain without clear cause HISTORY OF PRESENTATION: ?1 day of chest pain with breathing EMERGENCY DEPARTMENT COURSE,TESTS, TREATMENTS: While in the ED today you had lab work that was reassuring excluding heart attack or major electrolyte derangement or dehydration. CT of the chest excluded pulmonary embolism which was our primary concern and does not show signs of pneumonia or other complications. As detailed below there was a nodule that may or may not need to be followed up by your primary doctor based on your medical history present these instructions to them on the next visit DISCHARGE MEDICATIONS: ?[We have made no changes to your regular medication regimen] FOLLOW-UP: ?Call your primary or general physician soon as possible to discuss your symptoms, your ED visit and to discuss follow up plans Call your primary doctor INSTRUCTIONS ?& RETURN PRECAUTIONS: If any symptoms change first call your primary physician, if it is after-hours your primary doctors office should have a provider math interventionist you can speak with. If the symptoms are severe or very concerning to you then call 911 or return to the ED. Kentrell Phan MD Emergency Physician [facility] __CT chest: IMPRESSION: No visualized pulmonary embolus. Nonspecific groundglass densities are present in the lower lungs. 3 x 5 mm subpleural pulmonary nodules present in the superior lingular segment. No further follow-up is indicated per Fleischner Society recommendations, unless the patient falls into a high risk category, in which case a 12 month follow-up CT chest without contrast is optional. High risk patients includes those with a history of smoking, first-degree relative with lung cancer, or exposure to uranium, radon, or asbestos. Electronically signed by: Guille Contreras MD 01/09/2025 12:41 PM EDT Prescriptions: No Action metoprolol succinate 100 mg tablet extended release 24 hr 100 mg PO DAILY amitriptyline 50 mg tablet 50 mg PO BEDTIME lisinopril 10 mg tablet 10 mg PO DAILY Trulicity 0.75 mg/0.5 mL pen injector 0.75 mg subcut QWEEK atorvastatin 10 mg tablet 10 mg PO DAILY (DME) nebulizers Misc See Rx Instructions .ROUTE Rx Instructions: As directed roflumilast [Daliresp] 250 mcg tablet 250 mcg PO DAILY 30 Days Qty: 30 11RF fluticasone propion-salmeterol [Wixela Inhub] 250-50 mcg/dose blister with device 1 inh inhalation Q12H 90 Days Qty: 3 3RF omeprazole 20 mg capsule,delayed release(DR/EC) 20 mg PO BID albuterol sulfate 2.5 mg /3 mL (0.083 %) solution for nebulization 2.5 mg inhalation Q6H 30 Days Qty: 180 11RF Print Language: Maori
[2025-01-09 11:17] LABS: B Type Natriuretic Peptide < 10 pg/mL (<100)
[2025-01-09 11:24] LABS: Troponin-I High Sensitivity < 2.7 ng/L (<3.5-17.0)
[2025-01-09 11:34] LABS: Resp Syncy Virus RNA Qual PCR NEGATIVE (Negative); SARS COV2 PCR INHOUSE NEGATIVE (Negative)
[2025-01-09] MEDS: iohexoL 350 MG/ML 100 ML INFUS..BTL IV (12:18)
--- OUTSIDE RECORDS SUMMARY | 2025-01-09 12:22 | XMS_ITS ---
Author Name [facility] Organization Unknown Care Team Organization Name Specialty Phone Email Start Date End [facility] 07/06/2024
--- OUTSIDE RECORDS SUMMARY | 2025-01-09 12:22 | XMS_ITS | Encounter Summary ---
Author Organization Formerly [facility] Address [address] [place] [address] Care Team Providers Care Strategic Marketing Specialist Name Role Phone Unavailable Primary Care Provider Unavailabl e Encounter Details Date Type Department Care Team (Late st Contact Info) Description 07/06/2024 Scanned Document [facility] [address] [place] [address] Obstetrics And Gynecology, Scan Social History Tobacco Use Types Packs/Day Years Used Date Smoking Tobacco: Never Assessed Comments Unknown Sex and Gender Information Value Date Recorded Sex Assigned at Not on file Legal Sex Female 6:58 PM EST Gender Identity Not on file Sexual Orientation Not on file documented as of this encounter Plan of Treatment Not on file documented as of this encounter Visit Diagnoses Not on filedocumented in this encounter
--- OUTSIDE RECORDS SUMMARY | 2025-01-09 12:22 | XMS_ITS | Patient Health Record ---
[facility] Address [address] [facility] [place] [address] Care Team Providers Care Utility Assembler Name Role Phone Tramaine Yan Primary Care Provider Manju [place] Unavailable [phone] Allergies No Known Allergies Results Component Value Reference Range Notes HEMOGLOBIN A1C (GLYCOHEMOGLO BIN) Reviewed date:03/31/2024 08:57:06 AM Interpretation: Performing Lab: Notes/Report: TOTAL HEMOGLOBIN (HGBA1C) 7.3 HEMOGLOBIN A1C (GLYCOHEMOGLO BIN) Reviewed date:06/13/2024 08:52:29 AM Interpretation: Performing Lab: Notes/Report: TOTAL HEMOGLOBIN (HGBA1C) 6.9 HEMOGLOBIN A1C (GLYCOHEMOGLO BIN) Reviewed date:08/23/2024 09:27:09 AM Interpretation: Performing Lab: Notes/Report: HEMOGLOBIN A1C % (HH) 6.5 HEMOGLOBIN A1C (GLYCOHEMOGLO BIN) Reviewed date:11/10/2024 01:49:16 PM Interpretation: Performing Lab: Notes/Report: HEMOGLOBIN A1C % (HH) 7.9 Reason For Referral No Information Medications Medication SIG (Take, Route, Frequency, Duration) Notes Start Date End Date Status Metoprolol Succinate ER 100 MG TAKE 1 TABLET BY MOUTH EVERY DAY Oral; Duration: 90 Days Active metFORMIN HCl 500 MG 1 tablet with a paradise l Orally Once a day Active Omeprazole 20 MG TAKE 1 CAPSULE BY MOUTH TWICE A DAY Oral; Duration: 90 Days Active albuterol Not-Taking Lisinopril 10 MG Oral; Duration: 90 Days Active Vitamin D Active Extra Depth Orthopedic Shoes (1 Pair) with Customized Heat Molded Multidensity Innersoles (3 Pair) as directed Dx: NIDDM/Polyneuropathy (E11.42), Hammertoe Foot Deformity (M20.41,M20.42), Preulcerative Skin Lesion(s) (L85.1 03/02/2023 Active Probiotic Active Ammonium Lactate 12 % 1 application to affected area Externally Twice a day to dry areas of skin on feet; Duration: 30 days 08/23/2024 Active Multivitamin Active Lidocaine 5 % 1 patch remove after 12 hours Externally Once a day Not-Taking Colace 100 MG 1 capsule as needed Orally Once a day Active Roflumilast Not-Taki ng Naproxen 440mg 2x per day Active traMADol HCl 50 MG 1 tablet as needed Orally Once a day Not-Taking Atorvastatin Calcium 10 MG TAKE 1 TABLET BY MOUTH EVERYDAY AT BEDTIME Oral; Duration: 30 Days Active metFORMIN HCl 500 MG 1 tablet with a paradise l Orally Once a day Not-Taking Eliquis Active Trulicity 1.5 MG/0.5ML as directed Subcutaneous; Duration: 28 days Active Wixela Inhub Not-Renato ing Amitriptyline HCl 50 MG TAKE 1 TABLET BY MOUTH AT BEDTIME Oral; Duration: 90 Days Active Tylenol Active Immunizations Vaccine Route Administration Date Status [...] Problem Acquired hammer toe of right foot (8995091990047110 ) Other hammer toe(s) (acquired), right foot (M20.41) Active confirmed Problem Acquired hammer toe of left foot ([id number] ) Other hammer toe(s) (acquired), left foot (M20.42) Active confirmed Problem Polyneuropathy due to type 2 diabetes mellitus (923377355) Type 2 diabetes mellitus with polyneuropathy (E11.42) Active confirmed Vital Signs Blood pressure diastolic 78 mm Hg 11/10/2024 Height 5ft5in in 11/10/2024 Blood pressure systolic 140 mm Hg 11/10/2024 Weight 240 lbs 11/10/2024 BMI 39.93 kg/m2 11/10/2024 Encounters Encounter Location Date Provider Diagnosis [address] [address] 01/11/2024 Manju Perica Xerosis of skin L85. 3 ; Type 2 diabetes mellitus with polyneuropathy E11.42 and Tinea unguium B35.[address] [address] 03/31/2024 Manju Perica Xerosis of skin L85. 3 ; Type 2 diabetes mellitus with polyneuropathy E11.42 and Tinea unguium B35.[address] [address] 06/13/2024 Manju Perica Xerosis of skin L85. 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 [address] 08/23/2024 Manju Perica Xerosis of skin L85. 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 [address] 11/10/2024 Manju Perica Tinea unguium B35.1 and Type 2 diabetes [...] 08/23/2024 Xerosis of skin (ICD-10 - L85.3) 11/10/2024 Tinea unguium (ICD-10 - B35.1) 11/10/2024 Type 2 diabetes mellitus with polyneuropathy (ICD-10 - E11.42) 08/23/2024 Type 2 diabetes mellitus with polyneuropathy (ICD-10 - E11.42) 06/13/2024 Type 2 diabetes mellitus with polyneuropathy (ICD-10 - E11.42) 03/31/2024 Type 2 diabetes mellitus with polyneuropathy (ICD-10 - E11.42) 01/11/2024 Tinea unguium (ICD-10 - B35.1) 03/31/2024 Tinea unguium (ICD-10 - B35.1) Plan Of Treatment Next Appt Details Provider Name:Manju gray, 01/30/2025 09:00:00 AM, [address] [place] [address], [phone], Insurance Providers Payer Name Payer Address Payer Phone Subscriber Number Group Number Insured Name Patient Relationship to Insured Coverage Start Date Coverage End Date [employer] 65 Medicare Preferred [address] [place] [address] [id number] Rand Delgado Self - patient is the insured Medical (General) History Medical History History ICD Code Arthritis Back,Hip,and Knee pain type II diabetes Hiatal hernia High blood pressure Numbness Reflux ( GERD) Joint implants/screws Surgical History Surgery Date(Month/Year) knee replacement, bilateral 2005, 2006 cervical spine 03/27/2013 gall bladder removal 04/29/2018 hip replacement 04/06/2023 spine surgery 05/24/24
--- OUTSIDE RECORDS SUMMARY | 2025-01-09 12:22 | XMS_ITS | Clinical Summary ---
Author Organization [facility] [address] [facility] Address [address] [place] [address] Phone Care Team Providers Care Net Sql Developer Name Role Phone Tramaine Yan NP Primary Care Provider [phone] Allergies No known active allergies Medications amitriptyline [...] incidence of candidiasis. Do not swallow. Active Social History Tobacco Use Types Packs/Day Years [...] Vaccines (1 of 2) 2007 COVID-19 Vaccine (2023-2 5 season) 2024 Colorectal Cancer Screening: Colonoscopy 04/18/2024 Depression Screening 04/18/2024 Falls Risk Assessment 04/18/2024 Hepatitis C Screening 04/18/2024 Medicare Annual Wellness Visit 04/18/2024 Osteoporosis Screening (Bone Density Screening) 04/18/2024 Social Influencers of Health Screening 04/18/2024 Influenza Vaccine (#1) 2025 RSV Immunization Adult Patie nts (1 - 1-dose 75+ series) 2032 HIB [...] age to complete this topic Meningococcal B Vaccine Aged Out No l onger eligible based on patient's age to complete this topic RSV Immunization Patients Un yamile 20 months Aged Out No longer eligible b ased on patient's age to complete this topic Varicella Vaccines Aged Out No longer eligible based on patient's age to complete this topic Insurance BLUE CROSS - [place] MEDICARE ADVANTAGE Care Teams Net Sql Developer Relationship Specialty Start Date End Date Tramaine Yan NP [facility] [facility] [address] [place] [address] PCP - General Nurse Practitioner 10/04/24
[2025-01-09 13:28] VITALS: BP 100/63; PULSE 81; RESP 14; TEMP 36.7; O2SAT 95
[2025-01-09 13:39] VITALS: BP 100/63; PULSE 81; RESP 14; TEMP 36.7; O2SAT 95
[2025-01-09 13:45] LABS: Appearance Urine Clear; Glucose Urine UA Negative (Negative); PH 6.5 (5.0-9.0); Specific Gravity - Urine 1.025 (1.005-1.025)
== END 2025-01-09 13:39 | disposition home or self-care (01) ==
PROVIDERS: Emergency Provider Emergency Medicine; PCP Nurse Practitioner
DX: J41.8 Mixed simple and mucopurulent chronic bronchitis (principal); R91.8 Other nonspecific abnormal finding of lung field; R07.89 Other chest pain; K59.00 Constipation, unspecified; R06.02 Shortness of breath; F17.210 Nicotine dependence, cigarettes, uncomplicated; Z79.899 Other long term (current) drug therapy; Z03.818 Encounter for observation for suspected exposure to other biological agents ruled out
CPT/HCPCS: 71045; 71275; 80053; 81003; 83880; 84484; 85025; 85610; 87637; 93005; 99284; 99285; Q9967

== ENCOUNTER → 2025-01-09 10:22 | Outpatient (BNV) | payer MEDICARE, SELFPAY | PROVIDERS: Emergency Provider Emergency Medicine; PCP Nurse Practitioner; Visit Provider Internal Medicine Cardiovascular Disease | DX: R94.31 Abnormal electrocardiogram [ECG] [EKG] (principal); R07.9 Chest pain, unspecified; R06.02 Shortness of breath | CPT/HCPCS: 93010 ==

== ENCOUNTER 2025-01-13 09:54 | Observation (INO) | payer MEDICARE, SELFPAY ==
--- NOTE | 2025-01-13 | ECG_ITS ---
Test Reason : sob Blood Pressure : */* mmHG Vent. Rate : 99 BPM Atrial Rate : 99 BPM P-R Int : 196 ms QRS Dur : 88 ms QT Int : 324 ms P-R-T Axes : 34 -11 5 degrees QTcB Int : 415 ms Normal sinus rhythm Anterior infarct (cited on or before 09-Jan-2025) Abnormal ECG When compared with ECG of 09-Jan-2025 11:30, No significant change was found Referred By: Generic ED Physician Electronically Signed By: NAZ SAENZ MD
--- NOTE | ~2025-01-13 | CT_ITS ---
CLINICAL HISTORY: GI bleed, LLQ pain CT abdomen and pelvis with contrast Comparison: None provided Findings: No consolidation or effusion. The patient is status post cholecystectomy. There is related dilatation of the common bile duct which measures up to 1.1 cm in diameter. No obstructing calculus or mass is not demonstrated. Small hypodensity in the inferior aspect of the right lobe of the liver is likely a cyst. Few bilateral renal cysts are identified. The rest of the solid organs are unremarkable. No bowel obstruction, pneumoperitoneum, or pneumatosis. There is a small ventral hernia at the level of the stomach containing fat only. There is colonic diverticulosis without evidence of diverticulitis. The appendix is thickened without periappendiceal inflammation. It measures up to 1 cm in diameter. The bones are intact. There is no evidence of active GI bleeding. IMPRESSION: 1. No evidence of GI bleeding. 2. Thickened appendix without periappendiceal inflammation. The appendix measures up to 1 cm in diameter. Acute appendicitis is not excluded. Please correlate clinically. 3. Few bilateral renal cysts. 4. Small ventral hernia containing fat only. This document has been electronically signed by: Sourav Michael MD on 01/13/2025 12:06:58
[2025-01-13 09:59] VITALS: BP 112/70; PULSE 115; RESP 18; TEMP 36.8; O2SAT 97; BMI 36.8
--- OUTSIDE RECORDS SUMMARY | 2025-01-13 10:08 | XMS_ITS | Patient Health Record ---
Author Organization [facility] Address [address] [facility] [place] [address] Care Team Providers Care Eye Care Professional Name Role Phone Tramaine Yan Primary Care Provider Manju [place] Unavailable [phone] Allergies No Known Allergies Results Component Value Reference Range Notes HEMOGLOBIN A1C (GLYCOHEMOGLO BIN) Reviewed date:03/31/2024 08:57:06 AM Interpretation: Performing Lab: Notes/Report: TOTAL HEMOGLOBIN (HGBA1C) 7.3 HEMOGLOBIN A1C (GLYCOHEMOGLO BIN) Reviewed date:08/23/2024 09:27:09 AM Interpretation: Performing Lab: Notes/Report: HEMOGLOBIN A1C % (HH) 6.5 HEMOGLOBIN A1C (GLYCOHEMOGLO BIN) Reviewed date:11/10/2024 01:49:16 PM Interpretation: Performing Lab: Notes/Report: HEMOGLOBIN A1C % (HH) 7.9 HEMOGLOBIN A1C (GLYCOHEMOGLO BIN) Reviewed date:06/13/2024 08:52:29 [...] Problem Acquired hammer toe of right foot (3512368047011695 ) Other hammer toe(s) (acquired), right foot (M20.41) Active confirmed Problem Acquired hammer toe of left foot (5016887580773050 ) Other hammer toe(s) (acquired), left foot (M20.42) Active confirmed Problem Polyneuropathy due to type 2 diabetes mellitus (387726096) Type 2 diabetes mellitus with polyneuropathy (E11.42) Active confirmed Vital Signs Blood pressure diastolic 78 mm Hg 11/10/2024 Height 5ft5in in 11/10/2024 Blood pressure systolic 140 mm Hg 11/10/2024 Weight 240 lbs 11/10/2024 BMI 39.93 kg/m2 11/10/2024 Encounters Encounter Location Date Provider Diagnosis [address] [address] 03/31/2024 Manju Perica Xerosis of skin L85. 3 ; Type 2 diabetes mellitus with polyneuropathy E11.42 and Tinea unguium B35.[address] [address] 06/13/2024 Manju Perica Xerosis of skin L85. 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 [address] 08/23/2024 Manju Perica Xerosis of skin L85. 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 [address] 11/10/2024 Manju Perica Tinea unguium B35.1 and [...] Details Provider Name:Manju gray, 01/30/2025 09:00:00 AM, [address] [place], [address], Insurance Providers Payer Name Payer Address Payer Phone Subscriber Number Group Number Insured Name Patient Relationship to Insured Coverage Start Date Coverage End Date Blue[employer] 65 Medicare Preferred [address] [place] [address] [id number] Rand Delgado Self - patient is the insured Medical (General) History Medical History History ICD Code Arthritis Back,Hip,and Knee pain type II diabetes Hiatal hernia High blood pressure Numbness Reflux ( GERD) Joint implants/screws Surgical History Surgery Date(Month/Year) knee replacement, bilateral 2005, 2006 cervical spine 03/27/2013 gall bladder removal 04/29/2018 hip replacement 04/06/2023 spine surgery 05/24/24
--- OUTSIDE RECORDS SUMMARY | 2025-01-13 10:08 | XMS_ITS | Clinical Summary ---
Author Organization [facility] [address] [facility] Address [address] [place] [address] Phone Care Team Providers Care Metal Rolling Mill Operator Name Role Phone Tramaine Yan NP Primary Care Provider [phone] Allergies No known active allergies Medications amitriptyline [...] CROSS - [place] MEDICARE ADVANT[place] Care Teams Metal Rolling Mill Operator Relationship Specialty Start Date End Date Tramaine Yan NP [facility] [address] [place] [address] PCP - General Nurse Practitioner 10/04/24
--- OUTSIDE RECORDS SUMMARY | 2025-01-13 10:08 | XMS_ITS | Encounter Summary ---
Author Organization [facility] Address [address] [place] [address] Care Team Providers Care Transformer Coil Winder Name Role Phone Unavailable Primary Care Provider Unavailabl e Encounter Details Date Type Department Care Team (Late st Contact Info) Description 07/06/2024 Scanned Document [facility] [address] [place] [address] Obstetrics And Gynecology, Scan Social History Tobacco [...]
[2025-01-13 10:30] LABS: MANUAL DIFF FLAG NO
[2025-01-13 10:32] LABS: Hematocrit 44.7 % (37.0-47.0); Hemoglobin 15.6 g/dl (12.0-16.0); Imm Gran Abs Auto 0.28 X10*3/uL (0.00-0.03); Imm Gran Pct Auto 1.7 % (0.0-0.4); Lymphocytes Absolute Auto 2.1 X10*3/uL (1.2-4.9); Mean Corpuscular HGB Conc 34.9 g/dl (31.0-35.0); Mean Corpuscular Hemoglobin 28.9 pg (27.0-33.0); Mean Corpuscular Volume 82.9 fL (80.0-98.0); NRBC Abs Auto 0.000 X10*3/uL (0.0-0.012); NRBC Pct Auto 0.0 /100WBC (0.0-0.2); Platelet Count 407 X10*3/uL (160-400); Red Blood Count 5.39 X10*6/uL (4.20-5.50); White Blood Count 16.8 X10*3/uL (4.8-10.8)
--- NOTE | 2025-01-13 10:42 | ED_ITS ---
HPI - GI Bleed General Chief complaint: GI Bleed Stated complaint: rectal bleeding Time Seen by Provider: 01/13/25 10:21 Source: patient and family Mode of arrival: ambulatory Limitations: no limitations History of Present Illness ED Provider: DR. Gaines HPI Narrative: 69-year-old female came history significant for DVT was on Eliquis. Patient came in for evaluation of rectal bleed, started to see blood in the stool that now is turning into black stool, patient overall feel generalized weakness, feels dizzy and palpitation. Patient stopped Eliquis about a week ago because the GI bleed. Patient is complaining of mild left lower quadrant abdominal pain, slight nausea , no vomiting, no fever, chills. No CP, no SOB. Related Data Home Medications ?Medication ?Instructions ?Recorded ?Confirmed amitriptyline 50 mg tablet 50 mg PO BEDTIME 04/22/21 lisinopril 10 mg tablet 10 mg PO DAILY 04/22/21 metoprolol succinate 100 mg 100 mg PO DAILY 04/22/21 tablet,extended release 24 hr dulaglutide 0.75 mg/0.5 mL 0.75 mg subcut QWEEK subcutaneous pen injector (Trulicity) atorvastatin 10 mg tablet 10 mg PO DAILY 06/21/23 omeprazole 20 mg capsule,delayed 20 mg PO BID 10/04/23 release nebulizers 01/10/24 Previous Rx's ?Medication ?Instructions ?Recorded albuterol sulfate 2.5 mg/3 mL 2.5 mg (3 mL) inhalation Q6H 30 10/04/23 (0.083 %) solution for nebulization days #180 mL fluticasone 250 mcg-salmeterol 50 1 inh inhalation Q12 H 90 days #3 ea 01/10/24 mcg/dose blistr powdr for inhalation (Wixela Inhub) roflumilast 250 mcg tablet 250 mcg PO DAILY 30 days #3 0 tabs 01/10/24 (Daliresp) Allergies Allergy/AdvReac Type Severity Reaction Status Date / Time No Known Allergies Allergy Verified 01/13/25 10:02 Review of Systems 2 Review of Systems: All other systems are reviewed and are negative Constitutional: Reports as per HPI and Reports no additional constitutional complaints Eyes: Reports as per HPI and Reports no additional eye complaints Reports system reviewed and no additional complaints, except as documented Cardiovascular: Reports as per HPI and Reports no additional cardiovascular complaints Respiratory: Reports as per HPI and Reports no additional respiratory complaints Gastrointestinal: Reports as per HPI and Reports no additional gastrointestinal complaints Genitourinary: Reports no additional female genitourinary complaints Musculoskeletal: Reports no additional musculoskeletal complaints Skin/Breast: Reports system reviewed and no additional complaints, except as docu Psychiatric: Reports no additional psychiatric Hematologic/Lymphatic: Reports no additional hematologic/lymphatic complaints Allergic/Immunologic: Reports no additional allergi Reports system reviewed and no additional complaints, except as documented and Reports Abnormal speech present [facility] Past Medical History Medical History Tobacco dependence Pulmonary nodules COPD (chronic obstructive pulmonary disease) Chronic bronchitis Acute arthritis Fluttering heart Hypertension Obesity Diabetes type 2, controlled Surgical History History of hip surgery History of bilateral knee replacement H/O cervical spine surgery Family History Family History Mother Breast CA Diabetes HTN (hypertension) Paternal Grandmother Breast CA Social History Social History Household Members: Spouse Housing: House Alcohol intake: never Patient Tobacco Use Status: Current someday Tobacco user Cigarettes Per Day: 10 Years Smoked: 35 Smoked in Last 30 Days: No Use of substances other than those prescribed or required for medical reasons: No Advance Directives: Yes Advance Directives Information Provided: Yes Advance Directives on File: No Current occupational status: retired Sexual orientation: Straight/Heterosexual Gender identity: Female Physical Exam 2 Vital Signs: Vital Signs: Last Vital Signs Temp 98.3 F 01/13/25 09:59 Pulse 115 H 01/13/25 09:59 Resp 18 01/13/25 09:59 BP 112/70 01/13/25 09:59 Pulse Ox 97 01/13/25 09:59 O2 Del Method Room Air 01/13/25 09:59 BMI result Body Mass Index 36.8 Vital signs have been reviewed and appear to be correct. Blood pressure elevated. Heart rate Elevated. Respiratory rate normal. Temperature normal. Oxygen saturation normal. Appearance: Alert. Oriented X3. No acute distress. Head: Normal external exam. Normocephalic. Atraumatic. No Linares signs noted. No raccoon eyes noted Eyes: PERRLA. EOMI. Conjunctiva and sclera normal. Eyelids normal. ENT: TM's Normal. Pharynx normal. Uvula midline. Moist mucous membranes. No trismus noted. No drooling noted. No muffled voice noted. Neck: Normal inspection. Neck supple. FROM. No adenopathy. Thyroid Normal. No meningeal signs. No neck mass noted. CVS: Normal heart rate and rhythm. Heart sound normal. No murmurs noted. Pulses normal throughout. Respiratory: No respiratory distress. Painless inspiration. Breath sounds normal. No wheezes/rales/rhonchi noted. Chest nontender. No accessory muscle usage noted or decreased air movement noted. Abdomen: Soft and nontender. Bowel sounds normal in all 4 quadrants. No distention noted. No organomegaly noted. No visible injury noted. Rectal exam: No external hemorrhoid, black loose stool guaiac positive. Back: No CVA tenderness. Full range of motion noted. Skin: Skin warm and dry. Normal skin color. Normal skin turgor. No rashes/lesions/lacerations noted. Extremities: No lower extremity edema. Extremities exhibit normal range of motion. Extremities nontender. Neuro: Oriented X 3. Cranial nerve exam: II-XII are grossly intact No motor deficit. No sensory deficit. Reflexes normal. Course Reevaluation(s) Reevaluation #1: Leukocytosis, left lower quadrant abdominal pain, CT is is concerning of acute appendicitis which is not consistent with clinical exam, Dr. Houser was consulted who review the CAT scan recommended to admit to Medicine with GI consultation. Patient hemodynamically stable. No need for blood transfusion at the moment. Time: 12:43 Medications Administered Discontinued Medications Generic Name Dose Route Start Last Admin Trade Name Freq PRN Reason Stop Dose Admin Iohexol 85 ml 01/13/25 11:18 01/13/25 11:19 Iohexol 350 Mg/Ml 100 Ml Infus..Btl IV 01/13/25 11:19 85 ml ONCE ONE Administration Medical Decision Making Differential Diagnosis Differential Diagnoses: The differential diagnosis associated with the presentation includes ( Melena, colitis, appendicitis, severe anemia, need for blood transfusion, hypotension, diverticular disease, electrolyte derangement.) Admission/Observation Consideration of admission/observation: Escalation of care including admission/observation considered Consult Healthcare Provider Management of the patient was discussed with: Hospitalist ( Dr. Holliday) and Disability Coordinator ( Dr. Houser) Lab Data MDM Lab Attestation statement: I reviewed the patient's lab results. 01/13/25 10:22 01/13/25 10:22 Labs: Lab Results 01/13/25 01/13/25 01/13/25 Range/Units 10:22 10:27 10:54 WBC 16.8 H (4.8-10.8) X10*3/uL RBC 5.39 (4.20-5.50) X10*6/uL Hgb 15.6 (12.0-16.0) g/dl Hct 44.7 (37.0-47.0) % MCV 82.9 (80.0-98.0) fL MCH 28.9 (27.0-33.0) pg MCHC 34.9 (31.0-35.0) g/dl RDW 14.7 (11.0-16.0) % Plt Count 407 H (160-400) X10*3/uL MPV 8.8 L (9.4-12.3) fL Immature Gran % (Auto) 1.7 H (0.0-0.4) % Neut % (Auto) 78.6 H (45-73) % Lymph % (Auto) 12.3 L (20-40) % [place] % (Auto) 5.0 (2-11) % Eos % (Auto) 1.7 (0-4) % Baso % (Auto) 0.7 (0-2) % Lymph # (Auto) 2.1 (1.2-4.9) X10*3/uL [place] # (Auto) 0.8 (0.1-1.2) X10*3/uL Eos # (Auto) 0.3 (0.0-0.4) X10*3/uL Baso # (Auto) 0.1 (0.0-0.2) X10*3/uL Abs Immat Gran (auto) 0.28 H (0.00-0.03) X10*3/uL Absolute Neuts (auto) 13.2 H (2.0-8.3) x10*3/uL Absolute Nucleated RBC 0.000 (0.0-0.012) X10*3/uL Nucleated RBC % (auto) 0.0 (0.0-0.2) /100WBC Hold Purple Top SEE NOTE PT 11.3 (10.9-12.4) SEC INR 1.0 (0.9-1.1) Sodium 142 (135-145) mmol/L Potassium 3.6 (3.3-5.1) mmol/L Chloride 110 H (96-108) mmol/L Carbon Dioxide 19 L (22-29) mmol/L Anion Gap 17 (12-20) BUN 14 (9-16) mg/dL Creatinine 1.12 (0.5-1.4) mg/dL Estim Creat Clear Calc 57.1 Estimated GFR 49 Random Glucose 141 H (60-115) mg/dL Calcium 9.9 (8.4-10.2) mg/dL Total Bilirubin 0.4 (0.0-1.0) mg/dL Direct Bilirubin 0.1 (0.0-0.5) mg/dL AST 40 H (5-31) U/L ALT 35 H (0-31) U/L Alkaline Phosphatase 69 (39-117) U/L Troponin I High Sens 3.0 (<3.5-17.0) ng/L Total Protein 7.9 (6.5-8.0) g/dL Albumin 4.3 (3.5-5.0) g/dL Stool Occult Blood POSITIVE (NEGATIVE) Blood Type Antibody Screen 01/13/25 Range/Units 10:58 WBC (4.8-10.8) X10*3/uL RBC (4.20-5.50) X10*6/uL Hgb (12.0-16.0) g/dl Hct (37.0-47.0) % MCV (80.0-98.0) fL MCH (27.0-33.0) pg MCHC (31.0-35.0) g/dl RDW (11.0-16.0) % Plt Count (160-400) X10*3/uL MPV (9.4-12.3) fL Immature Gran % (Auto) (0.0-0.4) % Neut % (Auto) (45-73) % Lymph % (Auto) (20-40) % Divide % (Auto) (2-11) % Eos % (Auto) (0-4) % Baso % (Auto) (0-2) % Lymph # (Auto) (1.2-4.9) X10*3/uL [place] # (Auto) (0.1-1.2) X10*3/uL Eos # (Auto) (0.0-0.4) X10*3/uL Baso # (Auto) (0.0-0.2) X10*3/uL Abs Immat Gran (auto) (0.00-0.03) X10*3/uL Absolute Neuts (auto) (2.0-8.3) x10*3/uL Absolute Nucleated RBC (0.0-0.012) X10*3/uL Nucleated RBC % (auto) (0.0-0.2) /100WBC Hold Purple Top PT (10.9-12.4) SEC INR (0.9-1.1) Sodium (135-145) mmol/L Potassium (3.3-5.1) mmol/L Chloride (96-108) mmol/L Carbon Dioxide (22-29) mmol/L Anion Gap (12-20) BUN (9-16) mg/dL Creatinine (0.5-1.4) mg/dL Estim Creat Clear Calc Estimated GFR Random Glucose (60-115) mg/dL Calcium (8.4-10.2) mg/dL Total Bilirubin (0.0-1.0) mg/dL Direct Bilirubin (0.0-0.5) mg/dL AST (5-31) U/L ALT (0-31) U/L Alkaline Phosphatase (39-117) U/L Troponin I High Sens (<3.5-17.0) ng/L Total Protein (6.5-8.0) g/dL Albumin (3.5-5.0) g/dL Stool Occult Blood (NEGATIVE) Blood Type O Positive Antibody Screen NEGATIVE Independent Interpretation I performed an independent interpretation of an: CT Scan ( abdomen pelvis:1. No evidence of GI bleeding. 2. Thickened appendix without periappendiceal inflammation. The appendix measures up to 1 cm in diameter. Acute appendicitis is not excluded. Please correlate clinically. 3. Few bilateral renal cysts. 4. Small ventral hernia containing fat only.) Radiology Impression Discussion of test interpretation with radiology: I have reviewed the radiologist's reading. Discharge Plan Discharge Clinical Impression: Melena, Leukocytosis, Abnormal CT of the abdomen Patient Disposition: Admitted As Inpatient Print Language: Polish
[2025-01-13 10:43] LABS: INTERNATIONAL NORM RATIO 1.0 (0.9-1.1); Prothrombin Time 11.3 SEC (10.9-12.4)
[2025-01-13 10:47] LABS: Alanine Aminotransferase 35 U/L (0-31); Albumin Level 4.3 g/dL (3.5-5.0); Alkaline Phosphatase 69 U/L (39-117); Anion Gap 17 (12-20); Aspartate Amino Transferase 40 U/L (5-31); Blood Urea Nitrogen 14 mg/dL (9-16); Calcium 9.9 mg/dL (8.4-10.2); Carbon Dioxide 19 mmol/L (22-29); Chloride 110 mmol/L (96-108); Creatinine Clr Calc Pharmacy 57.1; Estimated Glomerular Filt Rate 49; Potassium 3.6 mmol/L (3.3-5.1); Sodium 142 mmol/L (135-145); Total Protein 7.9 g/dL (6.5-8.0)
[2025-01-13 10:53] LABS: Troponin-I High Sensitivity 3.0 ng/L (<3.5-17.0)
[2025-01-13 11:07] LABS: OBS Int Ctl Valid YES; OBS1 POSITIVE (NEGATIVE)
[2025-01-13] MEDS: iohexoL 350 MG/ML 100 ML INFUS..BTL 85 ML IV (11:19)
--- NOTE | 2025-01-13 15:12 | PHA.MEDREC ---
Pharmacy Consult ? Medication Reconciliation Pharmacy has completed the medication reconciliation, spoke to patient who had printed list with her. Pt stated she no longer uses inhalers and take only 500mg metformin with evening meal as her just increased her trulicity.
--- NOTE | 2025-01-13 15:13 | P.HPHOSP_ITS ---
History of Present Illness Date of Service: 01/13/25 Chief Complaint: dark stool 69-year-old woman presenting to the ER with diarrhea and black stools. Patient reports she has been having watery stools for about 2 weeks and started having some dark stool. She has stopped her Eliquis about a week ago. The day before yesterday she had red blood in the stool and then yesterday she had black stool. Patient denied any fever, chills, vomiting. She reports some nausea and left lower abdominal quadrant pain. No new change in medications, no recent travel, no sick contacts. She reported prior to all this happening she has been in her usual state of health maintaining her chronic health issues. In the ER, abdominal CT showed no evidence of GI bleeding, showed some questions of acute appendicitis however seen evaluated by General surgery and they did not think that it was related to her appendix. She was noted to have an elevated white blood cell count with no signs of infection, UA negative, stool occult positive, LFTs mildly elevated. This time patient is hemodynamically stable. She will be admitted for further management and treatment of acute GI bleed. Review of Systems 2 Review of Systems: Denies any recent fever chills or decrease in appetite respiratory denies any shortness of breath or cough cardiovascular denied chest pain gastrointestinal denies any dysphagia see HPI genitourinary denies any dysuria frequency or hematuria musculoskeletal denies any joint pain or swelling neuropsych denies any weakness or seizures all other systems reviewed are negative [facility] Medical History Tobacco dependence Pulmonary nodules COPD (chronic obstructive pulmonary disease) Chronic bronchitis Acute arthritis Fluttering heart Hypertension Obesity Diabetes type 2, controlled Family History Mother Breast CA Diabetes HTN (hypertension) Paternal Grandmother Breast CA Surgical History History of hip surgery History of bilateral knee replacement H/O cervical spine surgery Social History Household Members: Spouse Housing: House Alcohol intake: never Patient Tobacco Use Status: Current someday Tobacco user Cigarettes Per Day: 10 Years Smoked: 35 Smoked in Last 30 Days: No Use of substances other than those prescribed or required for medical reasons: No Advance Directives: Yes Advance Directives Information Provided: Yes Advance Directives on File: No Current occupational status: retired Sexual orientation: Straight/Heterosexual Gender identity: Female Meds Allergies Allergy/AdvReac Type Severity Reaction Status Date / Time No Known Allergies Allergy Verified 01/13/25 10:02 Active Medications: Current Medications Acetaminophen (Acetaminophen 325 Mg Tablet) 650 mg PO Q6H PRN PRN Reason: Pain, Mild 1-3,fever,headache Calcium Carbonate (Calcium Carbonate 750 Mg Tab.Chew) 750 mg PO Q4H PRN PRN Reason: Heartburn Magnesium Hydroxide (Milk Of Magnesia 30 Ml Oral.Susp) 30 ml PO DAILY PRN PRN Reason: Constipation Melatonin (Melatonin 3 Mg Tablet) 6 mg PO BEDTIME PRN PRN Reason: Insomnia Ondansetron HCl (Ondansetron Hcl 4 Mg/2 Ml Vial) 4 mg IVPUSH Q8H PRN PRN Reason: Nausea and Vomiting Sodium Chloride (0.9 % Sodium Chloride Flush 3 Ml Syringe) [address] [facility] Tamsulosin HCl (Tamsulosin Hcl 0.4 Mg Capsule) 0.4 mg PO DAILY [facility] Home Medications ?Medication ?Instructions ?Recorded ?Confirmed ?Last Taken ?Type amitriptyline 50 mg tablet 50 mg PO BEDTIME 04/22/21 0 01/13/25 01/12/25 History lisinopril 10 mg tablet 10 mg PO DAILY 04/22/21 07/12/0301/13/25 History metoprolol succinate 100 mg 100 mg PO DAILY 04/22/21 0 01/13/25 01/13/25 History tablet,extended release 24 hr atorvastatin 10 mg tablet 10 mg PO BEDTIME 06/21/2301/12/25 History omeprazole 20 mg capsule,delayed 20 mg PO BID@1200,210 0 10/04/23 01/13/25 01/12/25 History release nebulizers 01/10/24 Unknown History ammonium lactate 12 % topical cream 1 appl topical BID PRN irritated 01/13/25 01/13/25 Unknown History skin calcium carbonate 500 mg PO DAILY 01/13/2512/0301/12/25 History cholecalciferol (vitamin D3) 25 25 mcg PO DAILY 01/13/25 01/13/25 History mcg (1,000 unit) tablet (Vitamin D3) cyclobenzaprine 10 mg tablet 10 mg PO BID PRN Pain 12/0301/13/25 Unknown History dulaglutide 3 mg/0.5 mL 3 mg subcut PALACIO@0900 01/13/25 01/13/25 01/07/25 History subcutaneous pen injector (Trulicity) lactobacillus combination no.4 3 3,000 mmu cells PO DA NINI 01/13/25 01/13/25 01/12/25 History billion cell capsule (Probiotic) melatonin 5 mg tablet 5 mg PO BEDTIME 01/13/2512/0301/12/25 History metformin 500 mg tablet,extended 500 mg PO DAILY@1700 01/13/25 01/13/25 01/12/25 History release 24 hr multivitamin 1 tab PO DAILY 01/13/2512/0301/12/25 History oxycodone 5 mg tablet 5 mg PO Q6H PRN severe pain 01/13/25 01/13/25 01/12/25 History Physical Exam 2 Vital Signs and Narrative: Vital Signs: Last Vital Signs Temp 98.3 F 01/13/25 09:59 Pulse 115 H 01/13/25 09:59 Resp 18 01/13/25 09:59 BP 112/70 01/13/25 09:59 Pulse Ox 97 01/13/25 09:59 O2 Del Method Room Air 01/13/25 09:59 BMI result Body Mass Index 36.8 Appearing in no acute distress head is normocephalic atraumatic eyes pupils are PERRLA sclera is anicteric mouth throat mucous membranes are intact and moist neck is supple no lymphadenopathy, no JVD noted lung sounds are clear to auscultation heart regular rate rhythm, clear S1, S2 positive bowel sounds, abdomen is soft, nontender neuro patient is alert x3, no focal deficits Results Labs 01/13/25 10:22 01/13/25 10:22 Labs: Laboratory Results - last 24 hr 01/13/25 01/13/25 01/13/25 10:22 10:27 10:54 MCV 82.9 MCH 28.9 MCHC 34.9 RDW 14.7 Plt Count 407 H MPV 8.8 L Immature Gran % (Auto) 1.7 H Neut % (Auto) 78.6 H Lymph % (Auto) 12.3 L [place] % (Auto) 5.0 Eos % (Auto) 1.7 Baso % (Auto) 0.7 Lymph # (Auto) 2.1 [place] # (Auto) 0.8 Eos # (Auto) 0.3 Baso # (Auto) 0.1 Abs Immat Gran (auto) 0.28 H Absolute Neuts (auto) 13.2 H Absolute Nucleated RBC 0.000 Nucleated RBC % (auto) 0.0 Hold Purple Top SEE NOTE PT 11.3 INR 1.0 Anion Gap 17 Estim Creat Clear Calc 57.1 Estimated GFR 49 Random Glucose 141 H Calcium 9.9 Total Bilirubin 0.4 Direct Bilirubin 0.1 AST 40 H ALT 35 H Alkaline Phosphatase 69 Troponin I High Sens 3.0 Total Protein 7.9 Albumin 4.3 Stool Occult Blood POSITIVE Blood Type Antibody Screen 01/13/25 10:58 MCV MCH MCHC RDW Plt Count MPV Immature Gran % (Auto) Neut % (Auto) Lymph % (Auto) [place] % (Auto) Eos % (Auto) Baso % (Auto) Lymph # (Auto) [place] # (Auto) Eos # (Auto) Baso # (Auto) Abs Immat Gran (auto) Absolute Neuts (auto) Absolute Nucleated RBC Nucleated RBC % (auto) Hold Purple Top PT INR Anion Gap Estim Creat Clear Calc Estimated GFR Random Glucose Calcium Total Bilirubin Direct Bilirubin AST ALT Alkaline Phosphatase Troponin I High Sens Total Protein Albumin Stool Occult Blood Blood Type O Positive Antibody Screen NEGATIVE Assessment and Plan (1) Melena: Status: Acute Plan 69 year old women admitted with GI bleed GI bleed Reported watery stools for 2 weeks black stool and mucous Stool occult positive stable HH no abd pain GI consult clear diet PPI Leukocytosis WBC 16.8 No signs of infection Monitor Hypertension Hold blood pressure medications for now due to soft blood pressure Diabetes mellitus type 2 Sliding scale, clear liquid diet for now Hold metformin History of DVT to right lower extremity Stopped Eliquis 1 week ago due to rectal bleeding but has been told by her vascular surgeon that she can stopped taking it anyway Mental health Continue home medications Hyperlipidemia Hold statin for now Tobacco use Nicotine replacement therapy as needed Severe obesity. BMI 36.8 Discussed importance of weight management as this may be contributing to worsening of other comorbidities DVT prophylaxis with pneumatic compression boots due to GI bleeding Full code Quality Stroke Does the patient have a stroke diagnosis?: No VTE Prior VTE?: No VTE Risk Level:: Medical - moderate - high VTE Device Contraindication: N/A - Device Ordered VTE Drug Contraindication: Treatment Not Indicated
--- NOTE | 2025-01-13 15:53 | PM.GICN ---
History of Present Illness Data of Consult Service Date: 01/13/25 Requesting physician: Roshni Hughes Primary Care Provider: Camden Kurtz MD HPI Reason for consult: Abd pain and bloody diarrhea 69 YF (active smoker) with COPD, SVT of the right lower extremity treated with Eliquis x 3 months seen at [facility] on 01/13/25 with diarrhea and black stools for the past 2 weeks. Pt complains of LLQ pain for the past 2 weeks - pain is sharp and cramping, was 10/10 and now improved to 3/10 in intensity Patient reported having watery stools for the past 2 weeks with 6-10 BMs a day and started having some dark stool. Stool consists of mucous mixed with black stools. She has dinner at 5 pm and diarrhea usually starts at 11 pm and lasts all night Pt placed herself on a bland diet and stopped her Eliquis a week ago. 01/11/25 she noted red blood in the stool followed by black stools yesterday. She has abdominal cramps which resolve after she has a BM Patient notes nausea since last night and this morning. Patient denied any fever, chills, vomiting. Pt denies taking any aspirin or NSAIDs or recent changes in medications, no recent travel, no sick contacts. (she was given 4 aspirin by EMT on 01/09/25 enroute to [facility] for chest pain) Pt sees Dr Lopez at [facility] and reports having an EGD in 2018 (evaluation of atypical CP and dysphagia) which showed a hiatal hernia and she was diagnosed with esophageal spasms Esophageal biopsies werenegative for EOE or ntestinal metaplasia. Gastric biopsies showed mild reactive gastropathy She reports a remote history of peptic ulcer disease diagnosed 25 years ago and was started on omeprazole for GERD. She has colonoscopies every 3 years due to colon polyps (last colon was in 12/2023) Two polyps were removed during colonoscopy in 03/2020 (sessile serrated polyp in the cecum and hyperplastic polyp in the descending colon) She reported prior to all this happening she has been in her usual state of health maintaining her chronic health issues. Patient admits to smoking 10 cigarettes a day and denies EtOH use. She admits to snoring and has not been tested for sleep apnea. In the ER, pt was evaluated by General surgery and they did not think that it was related to her appendix. Labs showed an elevated WBC count with no signs of infection, UA negative, stool occult positive, LFTs mildly elevated. Pt was admitted for further management. FAMILY HISTORY: Positive for maternal grandmother with colon cancer in his 60s. 01/13/[address] SCAN SHOWED: 1. No evidence of GI bleeding. 2. Thickened appendix without periappendiceal inflammation. The appendix measures up to 1 cm in diameter. Acute appendicitis is not excluded. 3. Few bilateral renal cysts. 4. Small ventral hernia containing fat only. Review of Systems Review of Systems: Denies any recent fever chills or decrease in appetite respiratory denies any shortness of breath or cough cardiovascular denied chest pain gastrointestinal denies any dysphagia see HPI genitourinary denies any dysuria frequency or hematuria musculoskeletal denies any joint pain or swelling neuropsych denies any weakness or seizures all other systems reviewed are negative [facility] Past Medical History Medical History Tobacco dependence Pulmonary nodules COPD (chronic obstructive pulmonary disease) Chronic bronchitis Acute arthritis Fluttering heart Hypertension Obesity Diabetes type 2, controlled Family History Family History Mother Breast CA Diabetes HTN (hypertension) Paternal Grandmother Breast CA Surgical History Surgical History History of hip surgery History of bilateral knee replacement H/O cervical spine surgery Social History Social History Household Members: Spouse Housing: House Do you presently have visiting nurse or other home services: No Alcohol intake: never Patient Tobacco Use Status: Current everyday Tobacco user Tobacco use type: Cigarette Cigarette Packs Per Day: 0.5 Cigarettes Per Day: 10.0 Years Smoked: 35 service: No Current occupational status: retired Sexual orientation: Straight/Heterosexual Gender identity: Female Meds Allergies Allergy/AdvReac Type Severity Reaction Status Date / Time No Known Allergies Allergy Verified 01/13/25 10:02 Active Medications: Current Medications Acetaminophen (Acetaminophen 325 Mg Tablet) 650 mg PO Q6H PRN PRN Reason: Pain, Mild 1-3,fever,headache Amitriptyline HCl (Amitriptyline Hcl 50 Mg Tablet) 50 mg PO BEDTIME [facility] Calcium Carbonate (Calcium Carbonate 750 Mg Tab.Chew) 750 mg PO Q4H PRN PRN Reason: Heartburn Magnesium Hydroxide (Milk Of Magnesia 30 Ml Oral.Susp) 30 ml PO DAILY PRN PRN Reason: Constipation Melatonin (Melatonin 3 Mg Tablet) 6 mg PO BEDTIME PRN PRN Reason: Insomnia Melatonin (Melatonin 3 Mg Tablet) 6 mg PO BEDTIME [facility] Metoprolol Succinate (Metoprolol Succinate Er 100 Mg Tab.Er.24h) 100 mg PO DAILY [facility]; Protocol Omeprazole (Omeprazole 20 Mg Capsule.Dr) 20 mg PO BID@1200,2100 [facility] Ondansetron HCl (Ondansetron Hcl 4 Mg/2 Ml Vial) 4 mg IVPUSH Q8H PRN PRN Reason: Nausea and Vomiting Oxycodone HCl (Oxycodone Hcl Immed Release 5 Mg Tablet) 5 mg PO Q6H PRN PRN Reason: severe pain Sodium Chloride (0.9 % Sodium Chloride Flush 3 Ml Syringe) 3 ml IVFLUSH QSHIFT [facility] Home Medications ?Medication ?Instructions ?Recorded ?Confirmed ?Last Taken ?Type amitriptyline 50 mg tablet 50 mg PO BEDTIME 04/22/21 01/13/25 01/12/25 History lisinopril 10 mg tablet 10 mg PO DAILY 04/22/21 01/13/25 01/13/25 History metoprolol succinate 100 mg 100 mg PO DAILY 04/22/21 01/13/25 01/13/25 History tablet,extended release 24 hr atorvastatin 10 mg tablet 10 mg PO BEDTIME 06/21/23 01/13/25 01/12/25 History omeprazole 20 mg capsule,delayed 20 mg PO BID@1200,2100 10/04/23 01/13/25 01/12/25 History release nebulizers 01/10/24 Unknown History ammonium lactate 12 % topical cream 1 appl topical BID PRN irritated 01/13/25 01/13/25 Unknown History skin calcium carbonate 500 mg PO DAILY 01/13/25 01/13/25 01/12/25 History cholecalciferol (vitamin D3) 25 25 mcg PO DAILY 01/13/25 01/13/25 01/13/25 History mcg (1,000 unit) tablet (Vitamin D3) cyclobenzaprine 10 mg tablet 10 mg PO BID PRN Pain 01/13/25 01/13/25 Unknown History dulaglutide 3 mg/0.5 mL 3 mg subcut PALACIO@0900 01/13/25 01/13/25 01/07/25 History subcutaneous pen injector (Trulicity) lactobacillus combination no.4 3 3,000 mmu cells PO DAILY 01/13/25 01/13/25 01/12/25 History billion cell capsule (Probiotic) melatonin 5 mg tablet 5 mg PO BEDTIME 01/13/25 01/13/25 01/12/25 History metformin 500 mg tablet,extended 500 mg PO DAILY@1700 01/13/25 01/13/25 01/12/25 History release 24 hr multivitamin 1 tab PO DAILY 01/13/25 01/13/25 01/12/25 History oxycodone 5 mg tablet 5 mg PO Q6H PRN severe pain 01/13/25 01/13/25 01/12/25 History Physical Exam Vital Signs: Vital Signs: Last Vital Signs Temp 98.3 F 01/13/25 09:59 Pulse 115 H 01/13/25 09:59 Resp 18 01/13/25 09:59 BP 112/70 01/13/25 09:59 Pulse Ox 97 01/13/25 09:59 O2 Del Method Room Air 01/13/25 09:59 BMI result Body Mass Index 36.8 Const: General: healthy appearing and no acute distress Nutritional Appearance: obese Orientation/consciousness: patient oriented x3 Limitations: no limitations HEENT: Head: Yes normal to inspection Ears: hearing grossly normal bilaterally Mouth: Normal oral and palatal mucosa present Eyes: Sclerae: sclerae normal Pupils: Equal, round and reactive pupils present Neck: Neck: Yes normal visual inspection Chest: Chest palpation & inspection: normal inspection of the chest Resp: Effort & Inspection: normal respiratory effort Auscultation: clear to auscultation bilaterally Cardio: Palpation: normal PMI Rate: regular rate Rhythm: regular rhythm Heart sounds: S1 normal heart sound present, S2 normal heart sound present and no murmurs GI: Inspection: Yes obesity Palpation (GI): Soft to palpation, Tenderness to palpation present (GI) (Mild tenderness in the left mid abdomen) and No hepatosplenomegaly present Auscultation: normal bowel sounds Rectal Exam - Female: deferred Skin: General skin exam: no rashes or lesions noted Neuro: General: patient oriented x3, gait normal and moves all extremities Cranial nerves: Yes Equal, round and reactive pupils present Psych: Appearance: grossly normal Mental Status: mental status grossly normal Results Labs 01/14/25 05:54 01/14/25 05:54 Labs: Short CBC 01/13/25 Range/Units 10:22 WBC 16.8 H (4.8-10.8) X10*3/uL Hgb 15.6 (12.0-16.0) g/dl Hct 44.7 (37.0-47.0) % Plt Count 407 H (160-400) X10*3/uL BMP 01/13/25 10:22 Sodium 142 Potassium 3.6 Chloride 110 H Carbon Dioxide 19 L BUN 14 Creatinine 1.12 Calcium 9.9 Liver Function 01/13/25 Range/Units 10:22 Total Bilirubin 0.4 (0.0-1.0) mg/dL Direct Bilirubin 0.1 (0.0-0.5) mg/dL AST 40 H (5-31) U/L ALT 35 H (0-31) U/L Alkaline Phosphatase 69 (39-117) U/L Albumin 4.3 (3.5-5.0) g/dL Assessment and Plan (1) Melena: Status: Acute (2) Diarrhea: Status: Acute Plan 69 YF (active smoker) with COPD, SVT of the right lower extremity treated with Eliquis x 3 months seen at [facility] on 01/13/25 with diarrhea and black stools for the past 2 weeks. Pt complains of LLQ pain for the past 2 weeks - pain is sharp and cramping, was 10/10 and now improved to 3/10 in intensity Patient reported having watery stools for the past 2 weeks with 6-10 BMs a day and started having some dark stool. Abd pain with diarrhea and black stools possibly from upper (PUD/gastritis) versus LGI source (infectious/ischemic colitis or late onset IBD) RECOMMENDATIONS: 1. Agree with PO PPI and antiemetics 2. Check stool studies 3. If stool studies are negative, I will schedule an EGD and colon on 01/15/25 ADDENDUM: Pt placed on the add on list for EGD and Colon on 01/15/25 Prep and NPO orders placed. Procedures Date of Service Date of Service: 01/14/25
[2025-01-13 16:10] VITALS: BMI 37.7
[2025-01-13 16:43] VITALS: BP 115/67; PULSE 80; RESP 16; TEMP 36.2; O2SAT 94
[2025-01-13 16:45] LABS: Glucose, Whole Blood 108 mg/dL (60-115)
[2025-01-13] MEDS: Nicotine 7 MG PATCH.TD24 TRANSDERMA (17:18)
[2025-01-13] MEDS: 0.9 % Sodium Chloride Flush 3 ML SYRINGE IVFLUSH ×2 (17:19→20:44)
[2025-01-13 19:08] VITALS: BP 112/62; PULSE 76; RESP 17; TEMP 36.7; O2SAT 95
[2025-01-13 20:02] LABS: Glucose, Whole Blood 106 mg/dL (60-115)
[2025-01-13 23:37] VITALS: BP 102/58; PULSE 73; RESP 18; TEMP 36.1; O2SAT 95
[2025-01-14 03:25] VITALS: BP 100/54; PULSE 74; RESP 17; TEMP 36.3; O2SAT 93
[2025-01-14 06:32] LABS: Hematocrit 40.8 % (37.0-47.0); Hemoglobin 13.7 g/dl (12.0-16.0); Mean Corpuscular HGB Conc 33.6 g/dl (31.0-35.0); Mean Corpuscular Hemoglobin 28.7 pg (27.0-33.0); Mean Corpuscular Volume 85.5 fL (80.0-98.0); NRBC Abs Auto 0.000 X10*3/uL (0.0-0.012); NRBC Pct Auto 0.0 /100WBC (0.0-0.2); Platelet Count 289 X10*3/uL (160-400); Red Blood Count 4.77 X10*6/uL (4.20-5.50); White Blood Count 10.3 X10*3/uL (4.8-10.8)
[2025-01-14 06:38] LABS: Anion Gap 14 (12-20); Blood Urea Nitrogen 11 mg/dL (9-16); Calcium 9.0 mg/dL (8.4-10.2); Carbon Dioxide 21 mmol/L (22-29); Chloride 111 mmol/L (96-108); Creatinine Clr Calc Pharmacy 75.4; Estimated Glomerular Filt Rate > 60; Potassium 3.6 mmol/L (3.3-5.1); Sodium 142 mmol/L (135-145)
[2025-01-14 07:18] VITALS: BP 105/56; PULSE 76; RESP 18; TEMP 36.6; O2SAT 95
[2025-01-14 07:19] LABS: Glucose, Whole Blood 118 mg/dL (60-115)
[2025-01-14] MEDS: Metoprolol Succinate ER 100 MG TAB.ER.24H PO (07:51)
[2025-01-14] MEDS: Nicotine 7 MG PATCH.TD24 TRANSDERMA (07:51)
[2025-01-14] MEDS: 0.9 % Sodium Chloride Flush 3 ML SYRINGE IVFLUSH ×2 (07:55→21:01)
--- NOTE | 2025-01-14 08:00 | HO.PM.IMPN ---
Subjective Subjective Date of Service: 01/14/25 Review of Systems Abdominal pain and diarrhea No stool as of yet today Denies any pain Physical Exam Vital Signs: Vital Signs: Last Vital Signs Temp 97.9 F 01/14/25 07:18 Pulse 76 01/14/25 07:18 Resp 18 01/14/25 07:18 BP 105/56 L 01/14/25 07:18 Pulse Ox 95 01/14/25 07:18 O2 Del Method Room Air 01/14/25 07:18 BMI result Body Mass Index 37.7 Appearing in no acute distress lung sounds are clear to auscultation heart regular rate rhythm, clear S1, S2 positive bowel sounds, abdomen is soft, nontender neuro patient is alert x3, no focal deficits Objective Data Active Medications Acetaminophen (Acetaminophen 325 Mg Tablet) 650 mg PO Q6H PRN PRN Reason: Pain, Mild 1-3,fever,headache Amitriptyline HCl (Amitriptyline Hcl 50 Mg Tablet) 50 mg PO BEDTIME [facility] Last Admin: 01/13/25 20:43 Dose: 50 mg Documented By: PATTI Calcium Carbonate (Calcium Carbonate 750 Mg Tab.Chew) 750 mg PO Q4H PRN PRN Reason: Heartburn Dextrose (Dextrose 50 % 25 Gm/50 Ml Syringe) 25 gm IVPUSH Q15M PRN; Protocol PRN Reason: per Hypoglycemia Standing Ord. Glucose (Glucose Gel 15 Gm Gel..Gram.) 15 gm PO Q15M PRN; Protocol PRN Reason: per Hypoglycemia Standing Ord. Insulin Human Lispro (Insulin Lispro 100 Unit/Ml 3 Ml Vial) 0 unit SUBCUT QIDACHS [facility]; Protocol Last Admin: 01/14/25 07:45 Dose: Not Given Documented By: URSZULA Non-Admin Reason: No Insulin Coverage Magnesium Hydroxide (Milk Of Magnesia 30 Ml Oral.Susp) 30 ml PO DAILY PRN PRN Reason: Constipation Melatonin (Melatonin 3 Mg Tablet) 6 mg PO BEDTIME PRN PRN Reason: Insomnia Melatonin (Melatonin 3 Mg Tablet) 6 mg PO BEDTIME [facility] Last Admin: 01/13/25 20:44 Dose: 6 mg Documented By: PATTI Metoprolol Succinate (Metoprolol Succinate Er 100 Mg Tab.Er.24h) 100 mg PO DAILY [facility]; Protocol Last Admin: 01/14/25 07:51 Dose: 100 mg Documented By: URSZULA Nicotine (Nicotine 7 Mg Patch.Td24) 7 mg TRANSDERMA DAILY [facility] Last Admin: 01/14/25 07:51 Dose: 7 mg Documented By: URSZULA Omeprazole (Omeprazole 20 Mg Capsule.Dr) 20 mg PO BID@1200,2100 [facility] Last Admin: 01/13/25 20:43 Dose: 20 mg Documented By: PATTI Ondansetron HCl (Ondansetron Hcl 4 Mg/2 Ml Vial) 4 mg IVPUSH Q8H PRN PRN Reason: Nausea and Vomiting Oxycodone HCl (Oxycodone Hcl Immed Release 5 Mg Tablet) 5 mg PO Q6H PRN PRN Reason: severe pain Sodium Chloride (0.9 % Sodium Chloride Flush 3 Ml Syringe) 3 ml IVFLUSH QSHIFT [facility] Last Admin: 01/14/25 07:55 Dose: 3 ml Documented By: URSZULA Labs 01/14/25 05:54 01/14/25 05:54 Labs: Laboratory Results - last 24 hr 01/13/25 01/13/25 01/13/25 10:22 10:27 10:54 MCV 82.9 MCH 28.9 MCHC 34.9 RDW 14.7 Plt Count 407 H MPV 8.8 L Immature Gran % (Auto) 1.7 H Neut % (Auto) 78.6 H Lymph % (Auto) 12.3 L [place] % (Auto) 5.0 Eos % (Auto) 1.7 Baso % (Auto) 0.7 Lymph # (Auto) 2.1 [place] # (Auto) 0.8 Eos # (Auto) 0.3 Baso # (Auto) 0.1 Abs Immat Gran (auto) 0.28 H Absolute Neuts (auto) 13.2 H Absolute Nucleated RBC 0.000 Nucleated RBC % (auto) 0.0 Hold Purple Top SEE NOTE PT 11.3 INR 1.0 Anion Gap 17 Estim Creat Clear Calc 57.1 Estimated GFR 49 POC Glucose Random Glucose 141 H Calcium 9.9 Total Bilirubin 0.4 Direct Bilirubin 0.1 AST 40 H ALT 35 H Alkaline Phosphatase 69 Troponin I High Sens 3.0 Total Protein 7.9 Albumin 4.3 Stool Occult Blood POSITIVE Blood Type Antibody Screen 01/13/25 01/13/25 01/13/25 10:58 16:42 19:58 MCV MCH MCHC RDW Plt Count MPV Immature Gran % (Auto) Neut % (Auto) Lymph % (Auto) [place] % (Auto) Eos % (Auto) Baso % (Auto) Lymph # (Auto) [place] # (Auto) Eos # (Auto) Baso # (Auto) Abs Immat Gran (auto) Absolute Neuts (auto) Absolute Nucleated RBC Nucleated RBC % (auto) Hold Purple Top PT INR Anion Gap Estim Creat Clear Calc Estimated GFR POC Glucose 108 106 Random Glucose Calcium Total Bilirubin Direct Bilirubin AST ALT Alkaline Phosphatase Troponin I High Sens Total Protein Albumin Stool Occult Blood Blood Type O Positive Antibody Screen NEGATIVE 01/14/25 01/14/25 05:54 07:13 MCV 85.5 MCH 28.7 MCHC 33.6 RDW 15.0 Plt Count 289 D MPV 8.9 L Immature Gran % (Auto) Neut % (Auto) Lymph % (Auto) [place] % (Auto) Eos % (Auto) Baso % (Auto) Lymph # (Auto) [place] # (Auto) Eos # (Auto) Baso # (Auto) Abs Immat Gran (auto) Absolute Neuts (auto) Absolute Nucleated RBC 0.000 Nucleated RBC % (auto) 0.0 Hold Purple Top PT INR Anion Gap 14 Estim Creat Clear Calc 75.4 Estimated GFR > 60 POC Glucose 118 H Random Glucose 102 Calcium 9.0 D Total Bilirubin Direct Bilirubin AST ALT Alkaline Phosphatase Troponin I High Sens Total Protein Albumin Stool Occult Blood Blood Type Antibody Screen Assessment and Plan (1) Melena: Status: Acute Plan 69 year old women admitted with GI bleed Acute GI bleed, unspecified Reported watery stools for 2 weeks black stool and mucous Stool occult positive stable HH no abd pain GI consult> likely plan for endoscopy and colonoscopy tomorrow, obtain stool studies clear diet for now PPI Leukocytosis. Resolved No signs of infection Monitor Hypertension Hold blood pressure medications for now due to soft blood pressure Diabetes mellitus type 2 Sliding scale, clear liquid diet for now Hold metformin History of DVT to right lower extremity Stopped Eliquis 1 week ago due to rectal bleeding but has been told by her vascular surgeon that she can stopped taking it anyway Mental health Continue home medications Hyperlipidemia Hold statin for now Tobacco use Nicotine replacement therapy as needed Severe obesity. BMI 36.8 Discussed importance of weight management as this may be contributing to worsening of other comorbidities DVT prophylaxis with pneumatic compression boots due to GI bleeding Full code Quality Stroke Does the patient have a stroke diagnosis?: No VTE Prior VTE?: No VTE Risk Level:: Medical - moderate - high VTE Device Contraindication: N/A - Device Ordered VTE Drug Contraindication: Treatment Not Indicated
[2025-01-14 11:18] LABS: Glucose, Whole Blood 119 mg/dL (60-115)
[2025-01-14 12:00] VITALS: BP 105/57; PULSE 78; RESP 18; TEMP 36.2; O2SAT 94
--- NOTE | 2025-01-14 14:05 | MHC.CM.PN ---
PT REPORTS LIVING WITH HER AND BEING INDEPENDENT WITH CARE SHE HAS NO SERVICES, SHE HAS A NEBULIZER BUT REPORTS SHE HAS NOT USED IT IN A LONG TIME COPY OF HCP REQUESTED PCP: JONAS OLIVAS (NOT KELLY BRITTON) OBSERVATION NOTICE DELIVERED DCP: HOME VIA PRIVATE TRANSPORT
[2025-01-14 15:26] VITALS: BP 109/59; PULSE 71; RESP 18; TEMP 36.4; O2SAT 94
[2025-01-14] MEDS: PEG 3350/Na Sulf,Bicarb,Cl/KCL 4,000 ML SOLN.RECON 4000 ML PO (16:20)
[2025-01-14 16:24] LABS: Glucose, Whole Blood 107 mg/dL (60-115)
[2025-01-14 20:00] VITALS: BP 117/58; PULSE 77; RESP 18; TEMP 36.4; O2SAT 97
[2025-01-14 20:31] LABS: Glucose, Whole Blood 123 mg/dL (60-115)
[2025-01-14 23:39] VITALS: BP 131/71; PULSE 69; RESP 16; TEMP 35.9; O2SAT 95
[2025-01-15 03:48] VITALS: BP 146/65; PULSE 75; RESP 18; TEMP 36.9; O2SAT 94
[2025-01-15 07:36] LABS: Glucose, Whole Blood 132 mg/dL (60-115)
[2025-01-15 07:41] VITALS: BP 141/69; PULSE 74; RESP 16; TEMP 36.1; O2SAT 96
[2025-01-15 08:19] LABS: E. coli EAEC Not Detected (Not Detect.); E. coli EPEC Not Detected (Not Detect.); E. coli ETEC Not Detected (Not Detect.); E. coli STEC Not Detected (Not Detect.); Shigella sp./EIEC Not Detected (Not Detect.)
[2025-01-15] MEDS: Nicotine 7 MG PATCH.TD24 TRANSDERMA (08:24)
[2025-01-15] MEDS: Metoprolol Succinate ER 100 MG TAB.ER.24H PO (08:24)
[2025-01-15] MEDS: 0.9 % Sodium Chloride Flush 3 ML SYRINGE IVFLUSH (08:28)
--- NOTE | 2025-01-15 08:33 | PC.NURSE ---
pt refuses to wear sequential stockings, risks explained, pt verbalizes understanding and still refuses, MARY Barakat notified, patient ambulatory
[2025-01-15 11:31] VITALS: BP 154/67; PULSE 75; RESP 18; TEMP 36.4; O2SAT 97
[2025-01-15 11:32] LABS: Glucose, Whole Blood 126 mg/dL (60-115)
--- NOTE | 2025-01-15 12:00 | HO.PM.IMPN ---
Subjective Subjective Date of Service: 01/15/25 Review of Systems Abdominal pain and diarrhea Denies any pain Physical Exam Vital Signs: Vital Signs: Last Vital Signs Temp 97.6 F 01/15/25 11:31 Pulse 75 01/15/25 11:31 Resp 18 01/15/25 11:31 BP 154/67 H 01/15/25 11:31 Pulse Ox 97 01/15/25 11:31 O2 Del Method Room Air 01/15/25 11:31 BMI result Body Mass Index 37.7 Appearing in no acute distress neck is supple no lymphadenopathy, no JVD noted lung sounds are clear to auscultation heart regular rate rhythm, clear S1, S2 positive bowel sounds, abdomen is soft, nontender neuro patient is alert x3, no focal deficits Objective Data Active Medications Acetaminophen (Acetaminophen 325 Mg Tablet) 650 mg PO Q6H PRN PRN Reason: Pain, Mild 1-3,fever,headache Last Admin: 01/14/25 21:04 Dose: 650 mg Documented By: PATTI Amitriptyline HCl (Amitriptyline Hcl 50 Mg Tablet) 50 mg PO BEDTIME [facility] Last Admin: 01/14/25 21:01 Dose: 50 mg Documented By: PATTI Calcium Carbonate (Calcium Carbonate 750 Mg Tab.Chew) 750 mg PO Q4H PRN PRN Reason: Heartburn Dextrose (Dextrose 50 % 25 Gm/50 Ml Syringe) 25 gm IVPUSH Q15M PRN; Protocol PRN Reason: per Hypoglycemia Standing Ord. Glucose (Glucose Gel 15 Gm Gel..Gram.) 15 gm PO Q15M PRN; Protocol PRN Reason: per Hypoglycemia Standing Ord. Insulin Human Lispro (Insulin Lispro 100 Unit/Ml 3 Ml Vial) 0 unit SUBCUT QIDAS [facility]; Protocol Last Admin: 01/15/25 11:44 Dose: Not Given Documented By: RENE Non-Admin Reason: No Insulin Coverage Magnesium Hydroxide (Milk Of Magnesia 30 Ml Oral.Susp) 30 ml PO DAILY PRN PRN Reason: Constipation Melatonin (Melatonin 3 Mg Tablet) 6 mg PO BEDTIME PRN PRN Reason: Insomnia Melatonin (Melatonin 3 Mg Tablet) 6 mg PO BEDTIME [facility] Last Admin: 01/14/25 21:01 Dose: 6 mg Documented By: PATTI Metoprolol Succinate (Metoprolol Succinate Er 100 Mg Tab.Er.24h) 100 mg PO DAILY [facility]; Protocol Last Admin: 01/15/25 08:24 Dose: 100 mg Documented By: RENE Nicotine (Nicotine 7 Mg Patch.Td24) 7 mg TRANSDERMA DAILY [facility] Last Admin: 01/15/25 08:24 Dose: 7 mg Documented By: RENE Omeprazole (Omeprazole 20 Mg Capsule.Dr) 20 mg PO BID@1200,2100 [facility] Last Admin: 01/14/25 21:01 Dose: 20 mg Documented By: ODRISTrent Ondansetron HCl (Ondansetron Hcl 4 Mg/2 Ml Vial) 4 mg IVPUSH Q8H PRN PRN Reason: Nausea and Vomiting Oxycodone HCl (Oxycodone Hcl Immed Release 5 Mg Tablet) 5 mg PO Q6H PRN PRN Reason: severe pain Sodium Biphosphate/Sodium Phosphate (Sodium Phosphate,Bracken-Dibasic 133 Ml Enema) 133 ml ID ONCE PRN PRN Reason: Poor Colonoscopy Prep Results Last Admin: 01/15/25 10:51 Dose: 133 ml Documented By: RENE Sodium Chloride (0.9 % Sodium Chloride Flush 3 Ml Syringe) 3 ml IVFLUSH QSHIFT [facility] Last Admin: 01/15/25 08:28 Dose: 3 ml Documented By: RENE Labs 01/14/25 05:54 01/14/25 05:54 Labs: Laboratory Results - last 24 hr 01/14/25 01/14/25 01/14/25 13:58 16:12 20:21 POC Glucose 107 123 H Stl C. cayetanensis PCR Not Detected Stool Rotavirus A PCR Not Detected Stl Adenov F 40/41 PCR Not Detected Stool Astrovirus (PCR) Not Detected Stool Campylobacter PCR Not Detected Stool Cryptosporidium PCR Not Detected Stl Sh Tox Pr E STEC PCR Not Detected Stool E coli O157 PCR Not applicable Stl Enterotoxigenic E PCR Not Detected Stool EPEC (PCR) Not Detected Stool EAEC (PCR) Not Detected Stl E. histolytica PCR Not Detected Stool Giardia Lamblia PCR Not Detected Stl P. shigelloides PCR Not Detected Stool Salmonella PCR Not Detected Stool Sapovirus (PCR) Not Detected Stl Shigella/EIEC PCR Not Detected St Y.enterocolitica PCR Not Detected Stool Vibrio (PCR) Not Detected Stl Vibrio cholerae PCR Not Detected Stl Norovirus GI/GII PCR Not Detected 01/15/25 01/15/25 07:33 11:28 POC Glucose 132 H 126 H Stl C. cayetanensis PCR Stool Rotavirus A PCR Stl Adenov F 40/41 PCR Stool Astrovirus (PCR) Stool Campylobacter PCR Stool Cryptosporidium PCR Stl Sh Tox Pr E STEC PCR Stool E coli O157 PCR Stl Enterotoxigenic E PCR Stool EPEC (PCR) Stool EAEC (PCR) Stl E. histolytica PCR Stool Giardia Lamblia PCR Stl P. shigelloides PCR Stool Salmonella PCR Stool Sapovirus (PCR) Stl Shigella/EIEC PCR St Y.enterocolitica PCR Stool Vibrio (PCR) Stl Vibrio cholerae PCR Stl Norovirus GI/GII PCR Assessment and Plan (1) Melena: Status: Acute Plan 69 year old women admitted with GI bleed Acute GI bleed, unspecified Reported watery stools for 2 weeks black stool and mucous Stool occult positive stable HH no abd pain GI consult>plan for endoscopy and colonoscopy today PPI Leukocytosis. Resolved No signs of infection Monitor Hypertension Hold blood pressure medications for now due to soft blood pressure Diabetes mellitus type 2 Sliding scale, clear liquid diet for now Hold metformin History of DVT to right lower extremity Stopped Eliquis 1 week ago due to rectal bleeding but has been told by her vascular surgeon that she can stopped taking it anyway Mental health Continue home medications Hyperlipidemia Hold statin for now Tobacco use Nicotine replacement therapy as needed Severe obesity. BMI 37.7 Discussed importance of weight management as this may be contributing to worsening of other comorbidities DVT prophylaxis with pneumatic compression boots due to GI bleeding Full code Quality Stroke Does the patient have a stroke diagnosis?: No VTE Prior VTE?: No VTE Risk Level:: Medical - moderate - high VTE Device Contraindication: N/A - Device Ordered VTE Drug Contraindication: Treatment Not Indicated
[2025-01-15 12:03] VITALS: BP 130/65; PULSE 73; RESP 16; TEMP 36.7; O2SAT 97
[2025-01-15] MEDS: Lactated Ringers 1,000 ML 80 ML IVCONT (12:17)
--- NOTE | 2025-01-15 13:05 | MHC.SHP ---
Pre-Procedural Eval Section A - 24 Hr Update-Section A only Date of Service: 01/15/25 The patient is an INPATIENT: Yes Changes since office visit: Yes New Medical Problems, Yes Changes in Medication and Yes Patient answered all questions; No Cold of Flu in the past 2 weeks The patient has been examined within 24 hours of the surgical procedure. The History & Physical has been completed within 30 days and I have reviewed it.: Yes Section B - Complete if H&P > 30 days Chief Complaint: Abd Pain and diarrhea Allergies: Allergies Allergy/AdvReac Type Severity Reaction Status Date / Time No Known Allergies Allergy Verified 01/13/25 10:02 Plan Diagnosis/Plan: Unchanged I have reviewed the history and physical and performed a pertinent physical examination on my patient. No changes have occurred unless specified. Time Spent With Patient Time: Total time managing care of this patient today ____ minutes.
--- NOTE | 2025-01-15 13:09 | P.CONAN_ITS ---
[facility] Active Problems Active Problems: All Active Problems Diarrhea (Acute) Abnormal CT of the abdomen (Acute) Leukocytosis (Acute) Melena (Acute) Bloating (Acute) Tobacco dependence (Acute) Pulmonary nodules (Acute) COPD (chronic obstructive pulmonary disease) (Acute) Chronic bronchitis (Acute) Osteopenia (Acute) Well woman exam (Acute) Past Medical History Medical History Tobacco dependence Pulmonary nodules COPD (chronic obstructive pulmonary disease) Chronic bronchitis Acute arthritis Fluttering heart Hypertension Obesity Diabetes type 2, controlled Family History Family History Mother Breast CA Diabetes HTN (hypertension) Paternal Grandmother Breast CA Surgical History Surgical History History of hip surgery History of bilateral knee replacement H/O cervical spine surgery History of Problems with Anesthesia: No Social History Social History Household Members: Spouse Housing: House Are you a primary childcare aide to a significant other at home: No Do you presently have visiting nurse or other home services: No Alcohol intake: never Patient Tobacco Use Status: Current everyday Tobacco user Tobacco use type: Cigarette Cigarette Packs Per Day: 0.5 Cigarettes Per Day: 10.0 Years Smoked: 35 Smoked in Last 30 Days: No Patient Interested in Nicotine Replacement: Yes Second Hand Smoke Exposure: No Use of substances other than those prescribed or required for medical reasons: No Currently Displaying Signs/Symptoms of Drug Intoxication Withdrawal: No Have you been hit, kicked, punched, or otherwise hurt by someone within the past year? If so, by whom?: No Do you feel safe in your current relationship?: Yes Is there a partner from a previous relationship who is making you feel unsafe now?: No Are you made to feel afraid or neglected: No Are you DNR?: No Advance Directives: No Advance Directives Information Provided: Yes Advance Directives on File: No Do you have a plan to hurt others: No Plan Recently lost weight without trying: No How much weight loss: Not applicable Eating poorly because of decreased appetite: No Nutrition screen score: 0 Nutrition Risks: No Nutritional Risk Patient : No : No Poor oral hygiene: No service: No Current occupational status: retired Sexual orientation: Straight/Heterosexual Gender identity: Female Meds Allergies Allergy/AdvReac Type Severity Reaction Status Date / Time No Known Allergies Allergy Verified 01/13/25 10:02 Active Medications: Current Medications Acetaminophen (Acetaminophen 325 Mg Tablet) 650 mg PO Q6H PRN PRN Reason: Pain, Mild 1-3,fever,headache Last Admin: 01/14/25 21:04 Dose: 650 mg Amitriptyline HCl (Amitriptyline Hcl 50 Mg Tablet) 50 mg PO BEDTIME [facility] Last Admin: 01/14/25 21:01 Dose: 50 mg Calcium Carbonate (Calcium Carbonate 750 Mg Tab.Chew) 750 mg PO Q4H PRN PRN Reason: Heartburn Dextrose (Dextrose 50 % 25 Gm/50 Ml Syringe) 25 gm IVPUSH Q15M PRN; Protocol PRN Reason: per Hypoglycemia Standing Ord. Glucose (Glucose Gel 15 Gm Gel..Gram.) 15 gm PO Q15M PRN; Protocol PRN Reason: per Hypoglycemia Standing Ord. Lactated Ringer's (Lr) 1,000 mls @ 80 mls/hr IVCONT .[id number] [facility] Last Admin: 01/15/25 12:17 Dose: 80 mls/hr Insulin Human Lispro (Insulin Lispro 100 Unit/Ml 3 Ml Vial) 0 unit SUBCUT QIDACHS [facility]; Protocol Last Admin: 01/15/25 11:44 Dose: Not Given Magnesium Hydroxide (Milk Of Magnesia 30 Ml Oral.Susp) 30 ml PO DAILY PRN PRN Reason: Constipation Melatonin (Melatonin 3 Mg Tablet) 6 mg PO BEDTIME PRN PRN Reason: Insomnia Melatonin (Melatonin 3 Mg Tablet) 6 mg PO BEDTIME [facility] Last Admin: 01/14/25 21:01 Dose: 6 mg Metoprolol Succinate (Metoprolol Succinate Er 100 Mg Tab.Er.24h) 100 mg PO DAILY [facility]; Protocol Last Admin: 01/15/25 08:24 Dose: 100 mg Nicotine (Nicotine 7 Mg Patch.Td24) 7 mg TRANSDERMA DAILY [facility] Last Admin: 01/15/25 08:24 Dose: 7 mg Omeprazole (Omeprazole 20 Mg Capsule.Dr) 20 mg PO BID@1200,2100 [facility] Last Admin: 01/15/25 12:40 Dose: Not Given Ondansetron HCl (Ondansetron Hcl 4 Mg/2 Ml Vial) 4 mg IVPUSH Q8H PRN PRN Reason: Nausea and Vomiting Oxycodone HCl (Oxycodone Hcl Immed Release 5 Mg Tablet) 5 mg PO Q6H PRN PRN Reason: severe pain Sodium Biphosphate/Sodium Phosphate (Sodium Phosphate,[place]-Dibasic 133 Ml Enema) 133 ml NM ONCE PRN PRN Reason: Poor Colonoscopy Prep Results Last Admin: 01/15/25 10:51 Dose: 133 ml Sodium Chloride (0.9 % Sodium Chloride Flush 3 Ml Syringe) 3 ml IVFLUSH QSHIFT [facility] Last Admin: 01/15/25 08:28 Dose: 3 ml Home Medications ?Medication ?Instructions ?Recorded ?Confirmed ?Last Taken ?Type amitriptyline 50 mg tablet 50 mg PO BEDTIME 04/22/21 0 01/13/25 01/12/25 History lisinopril 10 mg tablet 10 mg PO DAILY 04/22/2112/0301/13/25 History metoprolol succinate 100 mg 100 mg PO DAILY 04/22/21 0 01/13/25 01/13/25 History tablet,extended release 24 hr atorvastatin 10 mg tablet 10 mg PO BEDTIME 06/21/2301/12/25 History omeprazole 20 mg capsule,delayed 20 mg PO BID@1200,210 0 10/04/23 01/13/25 01/12/25 History release nebulizers 01/10/24 Unknown History ammonium lactate 12 % topical cream 1 appl topical BID PRN irritated 01/13/25 01/13/25 Unknown History skin calcium carbonate 500 mg PO DAILY 01/13/2512/0301/12/25 History cholecalciferol (vitamin D3) 25 25 mcg PO DAILY 01/13/25 01/13/25 Histo ry mcg (1,000 unit) tablet (Vitamin D3) cyclobenzaprine 10 mg tablet 10 mg PO BID PRN Pain 12/0301/13/25 Unknown History dulaglutide 3 mg/0.5 mL 3 mg subcut PALACIO@0900 01/13/25 01/13/25 01/07/25 History subcutaneous pen injector (Trulicity) lactobacillus combination no.4 3 3,000 mmu cells PO DA NINI 01/13/25 01/13/25 01/12/25 History billion cell capsule (Probiotic) melatonin 5 mg tablet 5 mg PO BEDTIME 01/13/2512/0301/12/25 History metformin 500 mg tablet,extended 500 mg PO DAILY@1700 01/13/25 01/13/25 01/12/25 History release 24 hr multivitamin 1 tab PO DAILY 01/13/25 07/12/0301/12/25 History oxycodone 5 mg tablet 5 mg PO Q6H PRN severe pain 01/13/25 01/13/25 01/12/25 History Exam Height,Weight and Vital Signs: Height 5 ft 5 in Weight 102.7 kg Last Vital Signs Temp 98.1 F 01/15/25 12:03 Pulse 73 01/15/25 12:03 Resp 16 01/15/25 12:03 BP 130/65 01/15/25 12:03 Pulse Ox 97 01/15/25 12:03 O2 Del Method Room Air 01/15/25 12:03 Pertinent Lab Results Pertinent Lab Results: Laboratory Tests 01/13/25 01/13/25 01/13/25 10:22 10:27 10:54 WBC 16.8 H RBC 5.39 Hgb 15.6 Hct 44.7 MCV 82.9 MCH 28.9 MCHC 34.9 RDW 14.7 Plt Count 407 H MPV 8.8 L Immature Gran % (Auto) 1.7 H Neut % (Auto) 78.6 H Lymph % (Auto) 12.3 L [place] % (Auto) 5.0 Eos % (Auto) 1.7 Baso % (Auto) 0.7 Lymph # (Auto) 2.1 [place] # (Auto) 0.8 Eos # (Auto) 0.3 Baso # (Auto) 0.1 Abs Immat Gran (auto) 0.28 H Absolute Neuts (auto) 13.2 H Absolute Nucleated RBC 0.000 Nucleated RBC % (auto) 0.0 Hold Purple Top SEE NOTE PT 11.3 INR 1.0 Sodium 142 Potassium 3.6 Chloride 110 H Carbon Dioxide 19 L Anion Gap 17 BUN 14 Creatinine 1.12 Estim Creat Clear Calc 57.1 Estimated GFR 49 POC Glucose Random Glucose 141 H Calcium 9.9 Total Bilirubin 0.4 Direct Bilirubin 0.1 AST 40 H ALT 35 H Alkaline Phosphatase 69 Troponin I High Sens 3.0 Total Protein 7.9 Albumin 4.3 Stool Occult Blood POSITIVE Stl C. cayetanensis PCR Stool Rotavirus A PCR Stl Adenov F 40/41 PCR Stool Astrovirus (PCR) Stool Campylobacter PCR Stool Cryptosporidium PCR Stl Sh Tox Pr E STEC PCR Stool E coli O157 PCR Stl Enterotoxigenic E PCR Stool EPEC (PCR) Stool EAEC (PCR) Stl E. histolytica PCR Stool Giardia Lamblia PCR Stl P. shigelloides PCR Stool Salmonella PCR Stool Sapovirus (PCR) Stl Shigella/EIEC PCR St Y.enterocolitica PCR Stool Vibrio (PCR) Stl Vibrio cholerae PCR Stl Norovirus GI/GII PCR Blood Type Antibody Screen 01/13/25 01/13/25 01/13/25 10:58 16:42 19:58 WBC RBC Hgb Hct MCV MCH MCHC RDW Plt Count MPV Immature Gran % (Auto) Neut % (Auto) Lymph % (Auto) [place] % (Auto) Eos % (Auto) Baso % (Auto) Lymph # (Auto) [place] # (Auto) Eos # (Auto) Baso # (Auto) Abs Immat Gran (auto) Absolute Neuts (auto) Absolute Nucleated RBC Nucleated RBC % (auto) Hold Purple Top PT INR Sodium Potassium Chloride Carbon Dioxide Anion Gap BUN Creatinine Estim Creat Clear Calc Estimated GFR POC Glucose 108 106 Random Glucose Calcium Total Bilirubin Direct Bilirubin AST ALT Alkaline Phosphatase Troponin I High Sens Total Protein Albumin Stool Occult Blood Stl C. cayetanensis PCR Stool Rotavirus A PCR Stl Adenov F 40 PCR Stool Astrovirus (PCR) Stool Campylobacter PCR Stool Cryptosporidium PCR Stl Sh Tox Pr E STEC PCR Stool E coli O157 PCR Stl Enterotoxigenic E PCR Stool EPEC (PCR) Stool EAEC (PCR) Stl E. histolytica PCR Stool Giardia Lamblia PCR Stl P. shigelloides PCR Stool Salmonella PCR Stool Sapovirus (PCR) Stl Shigella/EIEC PCR St Y.enterocolitica PCR Stool Vibrio (PCR) Stl Vibrio cholerae PCR Stl Norovirus GI/GII PCR Blood Type O Positive Antibody Screen NEGATIVE 01/14/25 01/14/25 01/14/25 05:54 07:13 11:14 WBC 10.3 RBC 4.77 Hgb 13.7 Hct 40.8 MCV 85.5 MCH 28.7 MCHC 33.6 RDW 15.0 Plt Count 289 D MPV 8.9 L Immature Gran % (Auto) Neut % (Auto) Lymph % (Auto) [place] % (Auto) Eos % (Auto) Baso % (Auto) Lymph # (Auto) [place] # (Auto) Eos # (Auto) Baso # (Auto) Abs Immat Gran (auto) Absolute Neuts (auto) Absolute Nucleated RBC 0.000 Nucleated RBC % (auto) 0.0 Hold Purple Top PT INR Sodium 142 Potassium 3.6 Chloride 111 H Carbon Dioxide 21 L Anion Gap 14 BUN 11 Creatinine 0.86 Estim Creat Clear Calc 75.4 Estimated GFR > 60 POC Glucose 118 H 119 H Random Glucose 102 Calcium 9.0 D Total Bilirubin Direct Bilirubin AST ALT Alkaline Phosphatase Troponin I High Sens Total Protein Albumin Stool Occult Blood Stl C. cayetanensis PCR Stool Rotavirus A PCR Stl Adenov F PCR Stool Astrovirus (PCR) Stool Campylobacter PCR Stool Cryptosporidium PCR Stl Sh Tox Pr E STEC PCR Stool E coli O157 PCR Stl Enterotoxigenic E PCR Stool EPEC (PCR) Stool EAEC (PCR) Stl E. histolytica PCR Stool Giardia Lamblia PCR Stl P. shigelloides PCR Stool Salmonella PCR Stool Sapovirus (PCR) Stl Shigella/EIEC PCR St Y.enterocolitica PCR Stool Vibrio (PCR) Stl Vibrio cholerae PCR Stl Norovirus GI/GII PCR Blood Type Antibody Screen 01/14/25 01/14/25 01/14/25 13:58 16:12 20:21 WBC RBC Hgb Hct MCV MCH MCHC RDW Plt Count MPV Immature Gran % (Auto) Neut % (Auto) Lymph % (Auto) [place] % (Auto) Eos % (Auto) Baso % (Auto) Lymph # (Auto) [place] # (Auto) Eos # (Auto) Baso # (Auto) Abs Immat Gran (auto) Absolute Neuts (auto) Absolute Nucleated RBC Nucleated RBC % (auto) Hold Purple Top PT INR Sodium Potassium Chloride Carbon Dioxide Anion Gap BUN Creatinine Estim Creat Clear Calc Estimated GFR POC Glucose 107 123 H Random Glucose Calcium Total Bilirubin Direct Bilirubin AST ALT Alkaline Phosphatase Troponin I High Sens Total Protein Albumin Stool Occult Blood Stl C. cayetanensis PCR Not Detected Stool Rotavirus A PCR Not Detected Stl Adenov F 40 PCR Not Detected Stool Astrovirus (PCR) Not Detected Stool Campylobacter PCR Not Detected Stool Cryptosporidium PCR Not Detected Stl Sh Tox Pr E STEC PCR Not Detected Stool E coli O157 PCR Not applicable Stl Enterotoxigenic E PCR Not Detected Stool EPEC (PCR) Not Detected Stool EAEC (PCR) Not Detected Stl E. histolytica PCR Not Detected Stool Giardia Lamblia PCR Not Detected Stl P. shigelloides PCR Not Detected Stool Salmonella PCR Not Detected Stool Sapovirus (PCR) Not Detected Stl Shigella/EIEC PCR Not Detected St Y.enterocolitica PCR Not Detected Stool Vibrio (PCR) Not Detected Stl Vibrio cholerae PCR Not Detected Stl Norovirus GI/GII PCR Not Detected Blood Type Antibody Screen 01/15/25 01/15/25 07:33 11:28 WBC RBC Hgb Hct MCV MCH MCHC RDW Plt Count MPV Immature Gran % (Auto) Neut % (Auto) Lymph % (Auto) [place] % (Auto) Eos % (Auto) Baso % (Auto) Lymph # (Auto) [place] # (Auto) Eos # (Auto) Baso # (Auto) Abs Immat Gran (auto) Absolute Neuts (auto) Absolute Nucleated RBC Nucleated RBC % (auto) Hold Purple Top PT INR Sodium Potassium Chloride Carbon Dioxide Anion Gap BUN Creatinine Estim Creat Clear Calc Estimated GFR POC Glucose 132 H 126 H Random Glucose Calcium Total Bilirubin Direct Bilirubin AST ALT Alkaline Phosphatase Troponin I High Sens Total Protein Albumin Stool Occult Blood Stl C. cayetanensis PCR Stool Rotavirus A PCR Stl Adenov F 40/41 PCR Stool Astrovirus (PCR) Stool Campylobacter PCR Stool Cryptosporidium PCR Stl Sh Tox Pr E STEC PCR Stool E coli O157 PCR Stl Enterotoxigenic E PCR Stool EPEC (PCR) Stool EAEC (PCR) Stl E. histolytica PCR Stool Giardia Lamblia PCR Stl P. shigelloides PCR Stool Salmonella PCR Stool Sapovirus (PCR) Stl Shigella/EIEC PCR St Y.enterocolitica PCR Stool Vibrio (PCR) Stl Vibrio cholerae PCR Stl Norovirus GI/GII PCR Blood Type Antibody Screen Airway Mallampati Class: III TM Dist: >3cm Neck ROM: Full Loose/Missing/Broken Teeth: No Heart: RRR Lungs: CTA Assessment and Plan Assessment Anesthesia Assessment: Anesthesia Plan Discussed and Chart Reviewed Final Anesthetic Review History of Problems with Anesthesia: No NPO: Yes ASA Class: III Final Preanesthetic Review: Meds/Allgs Chart Reviewed, Consent Obtained/Reviewed and Anes Risks/Benef Reviewed Patient Risk: Intermediate Procedure Risk: Intermediate Anesthetic Plan Anesthetic Plan: MAC: Disposition: Standard PACU
--- NOTE | 2025-01-15 13:42 | P.OPN-COLO_ITS ---
Colonoscopy Operative Note Operative Note Date of Service: 01/15/25 Narrative: FLEXIBLE TRANSORAL UPPER GASTROINTESTINAL ENDOSCOPY WITH BIOPSIES AND SNARE POLYPECTOMY AND COLONOSCOPY TILL CECUM WITH [] Pre-op diagnosis: Abdominal pain, diarrhea, rectal bleeding Post-op diagnosis: GERD, Gastritis, gastric polyp, Diverticulosis, hemorrhoids Specimens and Sources: : a- gastric antrum bxs r/o h pylori ?b- gastric body bxs ?c- gastric polyp ?d- left side colon bxs r/o ischemic colitis Endoscopist:? Lexy Oro MD Anesthesia:?[facility] [place] UPPER ENDOSCOPY Consent: Indications for the procedure and potential complications of bleeding, perforation, reaction to medications and missed diagnosis were discussed with the patient and informed consent was obtained. Instrument: Olympus GIF H 190 mid size upper endoscope Monitoring: Vital signs and clinical assessment, continuous EKG monitoring, Pulse oximetry, Carbon Dioxide monitoring and blood pressure monitoring were done throughout the procedure. Procedure: The patient was placed in the left lateral decubitis position and pre-procedure medications were administered and a bite block was placed. The endoscope was inserted into the mouth and advanced under direct vision to the third part of duodenum. A careful inspection was made as the upper endoscope was withdrawn including a retroflexed examination of the proximal stomach; Findings and interventions are described below. Findings: Larynx: Normal Esophagus: GE junction at 36 cms. No esophagitis or Hernandez's. Stomach: A 10 mm benign appearing polyps in the gastric body along the lesser curve - removed with a cold snare. Moderate diffuse gastric erythema with nodular appearing mucosa in the gastric body- biopsies were obtained from the body and antrum. Grade 2 flap valve on retroflexed examination of the cardia. Duodenum: A 10-12 mm benign appearing nodule in the bulb with central orifice - likely minor papilla. Normal descending duodenum Intervention: Biopsies as noted above COLONOSCOPY PROCEDURE NOTE Instrument: Olympus PCF H 190 L variable stiffness pediatric colonoscope Monitoring: Vital signs and clinical assessment, intermittent blood pressure monitoring, continuous EKG monitoring, Pulse oximetry and Carbon Dioxide monitoring were done throughout the procedure. Please see anesthesia flowsheet. Colon withdrawl time was 20 minutes. Procedure: The patient was placed in the left lateral decubitis position and pre-procedure medications were administered. After a digital rectal examination of the ano-rectum, the video colonoscope was inserted into the rectum and advanced through the colon to the cecum. The colonoscope was slowly withdrawn in a retrograde panoramic fashion and the colon mucosa was carefully examined including a retroflexed view of the rectum. Findings and interventions are described below. Procedure Difficulty: Colon was long and there was some loop formation LLQ pressure was applied to intubate the cecum Findings: Terminal Ileum: Not evaluated Cecum: Normal Ascending Colon: Normal Transverse Colon: Normal Descending Colon: Moderate diverticulosis Sigmoid Colon: Patchy erythema wwithout ulcers from 25 to 50 cms - biopsies were obtained. A few 2-4 mm diminutive appearing polyps in the sigmoid colon. Severe diverticulosis with luminal narrowing Rectum: Normal Ano-rectum: Moderate internal hemorrhoids Colon preparation: Good after copious irrigation. [place] Bowel Preparation Scale Right colon; 2 Transverse colon: 2 Left colon; 2 (0 = Unprepared colon segment with mucosa not seen due to solid stool that cannot be cleared. 1 = Portion of mucosa of the colon segment seen, but other areas of the colon segment not well seen due to staining, residual stool and/or opaque liquid. 2 = Minor amount of residual staining, small fragments of stool and/or opaque liquid, but mucosa of colon segment seen well. 3 = Entire mucosa of colon segment seen well with no residual staining, small fragments of stool or opaque liquid) Impression and Post Procedure Diagnosis: Endoscopy Findings: ESOPHAGUS: [] STOMACH: [] DUODENUM: [] Colonoscopy Findings: A few 2-4 mm diminutive appearing polyps in the sigmoid colon. Patchy erythema wwithout ulcers from 25 to 50 cms - biopsies were obtained - likely resolving ischemic colitis Moderate diverticulosis seen in the left colon Moderate hemorrhoids on retroflexed exam. No blood seen in the colon during colonoscopy Plan: OK to resume a regular diet. Pt can be discharged home from GI standpoint. I will contact the patient with biopsy results. Repeat Colonoscopy in 3 years at [facility] A summary of above findings and relevant handouts were given to the patient.
[2025-01-15 14:25] VITALS: BP 123/61; PULSE 82; RESP 18; TEMP 36.1; O2SAT 97
--- NOTE | 2025-01-15 15:00 | MHC.CM.PN ---
EMR REVIEWED AND PER MD ROUNDS, PT WILL HAVE EGD/COLONOSCOPY TODAY. CM WILL CONTINUE TO FOLLOW FOR DC PLAN.
--- NOTE | 2025-01-15 15:09 | PM.DS ---
DS: Providers Provider Date of Service: 01/15/25 Date of admission: 01/13/25 13:11 Date of discharge: 01/15/25 Primary care physician: Tramaine Yan NP DS: Diagnosis Discharge Diagnosis (1) Melena: Status: Acute DS: Summary Hospital Course Hospital Course: History and physical as per admitting provider. 69-year-old woman presenting to the ER with diarrhea and black stools. Patient reports she has been having watery stools for about 2 weeks and started having some dark stool. She has stopped her Eliquis about a week ago. The day before yesterday she had red blood in the stool and then yesterday she had black stool. Patient denied any fever, chills, vomiting. She reports some nausea and left lower abdominal quadrant pain. No new change in medications, no recent travel, no sick contacts. She reported prior to all this happening she has been in her usual state of health maintaining her chronic health issues. In the ER, abdominal CT showed no evidence of GI bleeding, showed some questions of acute appendicitis however seen evaluated by General surgery and they did not think that it was related to her appendix. She was noted to have an elevated white blood cell count with no signs of infection, UA negative, stool occult positive, LFTs mildly elevated. This time patient is hemodynamically stable. She will be admitted for further management and treatment of acute GI bleed. 69-year-old woman presenting to the ER and treated for acute GI bleed. She had reported watery stools for 2 weeks with black mucousy stool. She was still occult positive. Her H&H has remained stable her entire hospitalization and never required blood transfusion. She is status post endoscopy and colonoscopy today finding showing polyp and gastritis as well as old healing colitis. Patient has been on Eliquis up to 2 weeks ago and this has been stopped as patient is treatment for blood clot was completed. At this time patient is feeling well and plan will be to discharge home. She should continue her PPI. Leukocytosis. No sign of infection Hypertension. Blood pressure medication was held during hospitalization due to soft blood pressure but she may continue at home. Diabetes mellitus type 2. Continue metformin, treated with sliding scale while inpatient Hyperlipidemia. Continue statin Mental health. Continue home medications Tobacco use. Discussed the importance of smoking cessation. May use nicotine replacement therapy as needed Severe obesity. BMI 37.7. Discussed importance of weight management as this may be contributing to worsening of other comorbidities Time Attestation Discharge Coordination Time (in mins): 42 Quality: Safe Use of Opioids Does Pt have an Active Cancer Diagnosis on the Problem List?: No Quality: Stroke Does the patient have a stroke diagnosis?: No Physical Exam Vital Signs: Vital Signs: Last Vital Signs Temp 97 F 01/15/25 14:25 Pulse 82 01/15/25 14:25 Resp 18 01/15/25 14:25 BP 123/61 01/15/25 14:25 Pulse Ox 97 01/15/25 14:25 O2 Del Method Room Air 01/15/25 14:25 BMI result Body Mass Index 37.7 Appearing in no acute distress head is normocephalic atraumatic eyes pupils are PERRLA sclera is anicteric mouth throat mucous membranes are intact and moist neck is supple no lymphadenopathy, no JVD noted lung sounds are clear to auscultation heart regular rate rhythm, clear S1, S2 positive bowel sounds, abdomen is soft, nontender neuro patient is alert x3, no focal deficits DS: Data Data Completed and Pending Pending studies at discharge: Pending at discharge 01/15/25 13:37 Surgical [PTH] Routine Labs on day of discharge: Laboratory Results - last 24 hr 01/14/25 01/14/25 01/14/25 13:58 16:12 20:21 POC Glucose 107 123 H Stl C. cayetanensis PCR Not Detected Stool Rotavirus A PCR Not Detected Stl Adenov F 40/41 PCR Not Detected Stool Astrovirus (PCR) Not Detected Stool Campylobacter PCR Not Detected Stool Cryptosporidium PCR Not Detected Stl Sh Tox Pr E STEC PCR Not Detected Stool E coli O157 PCR Not applicable Stl Enterotoxigenic E PCR Not Detected Stool EPEC (PCR) Not Detected Stool EAEC (PCR) Not Detected Stl E. histolytica PCR Not Detected Stool Giardia Lamblia PCR Not Detected Stl P. shigelloides PCR Not Detected Stool Salmonella PCR Not Detected Stool Sapovirus (PCR) Not Detected Stl Shigella/EIEC PCR Not Detected St Y.enterocolitica PCR Not Detected Stool Vibrio (PCR) Not Detected Stl Vibrio cholerae PCR Not Detected Stl Norovirus GI/GII PCR Not Detected 01/15/25 01/15/25 07:33 11:28 POC Glucose 132 H 126 H Stl C. cayetanensis PCR Stool Rotavirus A PCR Stl Adenov F 40/41 PCR Stool Astrovirus (PCR) Stool Campylobacter PCR Stool Cryptosporidium PCR Stl Sh Tox Pr E STEC PCR Stool E coli O157 PCR Stl Enterotoxigenic E PCR Stool EPEC (PCR) Stool EAEC (PCR) Stl E. histolytica PCR Stool Giardia Lamblia PCR Stl P. shigelloides PCR Stool Salmonella PCR Stool Sapovirus (PCR) Stl Shigella/EIEC PCR St Y.enterocolitica PCR Stool Vibrio (PCR) Stl Vibrio cholerae PCR Stl Norovirus GI/GII PCR Discharge Plan Discharge Anticipated Discharge Date/Time: 01/15/25 15:05 Patient Disposition: Home, Self-Care Discharge Diagnosis: Acute GI bleed Gastritis Gastric polyp Leukocytosis Referrals: Tramaine Yan NP [Primary Care Provider, Medical] - 1 Week Discharge Medications: Continued cyclobenzaprine 10 mg tablet 10 mg PO BID PRN (Reason: Pain) metformin 500 mg tablet extended release 24 hr 500 mg PO DAILY@1700 oxycodone 5 mg tablet 5 mg PO Q6H PRN (Reason: severe pain) multivitamin Tablet 1 tab PO DAILY calcium carbonate 500 mg calcium (1,250 mg) Tablet 500 mg PO DAILY ammonium lactate 12 % cream 1 appl topical BID PRN (Reason: irritated skin) cholecalciferol (vitamin D3) [Vitamin D3] 25 mcg (1,000 unit) Tablet 25 mcg PO DAILY melatonin 5 mg Tablet 5 mg PO BEDTIME Trulicity 3 mg/0.5 mL pen injector 3 mg subcut PALACIO@0900 Probiotic 3 billion cell Capsule 3,000 mmu cells PO DAILY Rx Instructions: administer with a meal metoprolol succinate 100 mg tablet extended release 24 hr 100 mg PO DAILY amitriptyline 50 mg tablet 50 mg PO BEDTIME lisinopril 10 mg tablet 10 mg PO DAILY atorvastatin 10 mg tablet 10 mg PO BEDTIME (DME) nebulizers Misc See Rx Instructions .ROUTE Rx Instructions: As directed omeprazole 20 mg capsule,delayed release(DR/EC) 20 mg PO BID@1200,2100 Discharge Orders: Discharge Order (Routine); Ordered 01/15/25 Ordered By: Roshni Hughes Diet: Advance to usual diet Activity on Discharge: As tolerated Stand Alone Forms: Patient Portal Discharge page Print Language: Japanese Care Plan Goals: If you notice any further bleeding return to the emergency department You are no longer on Eliquis Health Concerns: Acute GI bleed Gastritis Gastric polyp Leukocytosis Plan of Treatment: Follow up with primary care provider as needed Take all medications as prescribed Assessment: See discharge summary
[2025-01-15 15:28] VITALS: BP 130/58; PULSE 77; RESP 16; TEMP 36.3; O2SAT 97
--- NOTE | 2025-01-15 15:30 | MHC.CM.PN ---
DP: PT HAS BEEN MEDICALLY CLEARED FOR DC HOME, NO SERVICES. PT HAS OWN RIDE HOME
[2025-01-15 15:42] LABS: Glucose, Whole Blood 113 mg/dL (60-115)
== END 2025-01-15 16:08 | disposition home or self-care (01) ==
LOC: HO.ED 12:49 → HO.EDOVER 13:29 → HO.S3 15:22
PROVIDERS: Internal Medicine Gastroenterology; Admitting Provider Nurse Practitioner Acute Care; Emergency Provider Emergency Medicine; PCP Nurse Practitioner; Visit Provider Nurse Practitioner Acute Care
PROC: (CPT 45380; principal; 2025-01-15 12:30)
DX: K21.9 Gastro-esophageal reflux disease without esophagitis (principal); K31.7 Polyp of stomach and duodenum; K29.70 Gastritis, unspecified, without bleeding; K64.8 Other hemorrhoids; K57.90 Diverticulosis of intestine, part unspecified, without perforation or abscess without bleeding; K92.1 Melena; R19.7 Diarrhea, unspecified; R06.02 Shortness of breath; R53.1 Weakness; R00.2 Palpitations; R10.32 Left lower quadrant pain; I10 Essential (primary) hypertension; E11.9 Type 2 diabetes mellitus without complications; J44.9 Chronic obstructive pulmonary disease, unspecified; D72.829 Elevated white blood cell count, unspecified; R93.5 Abnormal findings on diagnostic imaging of other abdominal regions, including retroperitoneum; E78.5 Hyperlipidemia, unspecified; E66.01 Morbid (severe) obesity due to excess calories; Z68.36 Body mass index [BMI] 36.0-36.9, adult; Z72.0 Tobacco use; Z79.01 Long term (current) use of anticoagulants; Z79.899 Other long term (current) drug therapy
CPT/HCPCS: 45380; 43251; 36415; 74177; 80048; 80076; 82272; 82947; 84484; 85025; 85027; 85610; 86850; 86900; 86901; 87507; 88305; 88313; 88342; 93005; 99221; 99285; J2003; J2704; J7120; Q9967

== ENCOUNTER → 2025-01-13 10:32 | Outpatient (BNV) | payer MEDICARE, SELFPAY | PROVIDERS: Emergency Provider Emergency Medicine; PCP Family Medicine; Visit Provider Radiology Diagnostic Radiology | DX: N28.1 Cyst of kidney, acquired (principal) | CPT/HCPCS: 74177 ==

== ENCOUNTER → 2025-01-13 10:47 | Outpatient (BNV) | payer MEDICARE, SELFPAY | PROVIDERS: Admitting Provider Nurse Practitioner Acute Care; Emergency Provider Emergency Medicine; PCP Family Medicine; Visit Provider Internal Medicine Cardiovascular Disease | DX: I25.2 Old myocardial infarction (principal) | CPT/HCPCS: 93010 ==

== ENCOUNTER → 2025-01-13 13:11 | Outpatient (BNV) | payer MEDICARE, SELFPAY | PROVIDERS: Admitting Provider Nurse Practitioner Acute Care; Emergency Provider Emergency Medicine; PCP Family Medicine; Visit Provider Nurse Practitioner Acute Care | DX: K92.1 Melena (principal) | CPT/HCPCS: 99223; 99232; 99239; 99499 ==

== ENCOUNTER → 2025-01-13 13:11 | Outpatient (BNV) | payer MEDICARE, SELFPAY | PROVIDERS: Admitting Provider Nurse Practitioner Acute Care; Emergency Provider Emergency Medicine; PCP Family Medicine; Visit Provider Internal Medicine Gastroenterology | DX: K92.1 Melena (principal); R19.7 Diarrhea, unspecified | CPT/HCPCS: 99254 ==

== ENCOUNTER 2025-02-13 09:02 | Outpatient (REF) | payer MEDICARE, SELFPAY ==
--- OUTSIDE RECORDS SUMMARY | 2025-02-13 09:20 | XMS_ITS | Patient Health Record ---
Author Organization [facility] Address [address] [place] [address] Care Team Providers Care Emanations Analysis Technician Name Role Phone Tramaine Yan Primary Care Provider Manju [place] Unavailable [phone] Allergies No Known Allergies Results Component Value [...] as needed Orally Once a day Not-Taking Amitriptyline HCl 50 MG TAKE 1 TABLET BY MOUTH AT BEDTIME Oral; Duration: 90 Days Active metFORMIN HCl 500 MG 1 tablet with a paradise l Orally Once a day Not-Taking Eliquis Not-Taking Metoprolol Succinate ER 100 MG TAKE 1 TABLET BY MOUTH EVERY DAY Oral; Duration: 90 Days Active Multivitamin Active Wixela Inhub Not-Renato ing Colace 100 MG 1 capsule as needed Orally Once a day Active albuterol Not-Taking Naproxen 440mg 2x per day Active Lidocaine 5 % 1 patch remove after 12 hours Externally Once a day Not-Taking Atorvastatin Calcium 10 MG TAKE 1 TABLET BY MOUTH EVERYDAY AT BEDTIME Oral; Duration: 30 Days Active Roflumilast Not-Taki ng Tylenol Active Omeprazole 20 MG TAKE 1 CAPSULE BY MOUTH TWICE A DAY Oral; Duration: 90 Days Active metFORMIN HCl 500 MG 1 tablet with a paradise l Orally Once a day Active Lisinopril 10 MG Oral; Duration: 90 Days [...] on feet; Duration: 30 days 08/23/2024 Active Trulicity 1.5 MG/0.5ML as directed Subcutaneous; Duration: 28 days Active Immunizations Vaccine Route Administration Date Status Comme nts Influenza Unknown 03/16/2022 Administered Influenza Unknown 05/12/2023 Administered Influenza Unknown 05/12/2024 Administered Social History Tobacco Use: Social History [...] Are you an other tobacco user? No AUDIT-C (Standard) Question Answer Notes Did you have a drink containing alcohol in the p ast year? No Points 0 Interpretation Negative Problems Problem Type SNOMED Code ICD Code Onset Dates Problem Status W/U Status Risk Notes Problem Acquired hammer toe of right foot (7586028223087406 ) Other hammer toe(s) (acquired), right foot (M20.41) Active confirmed Problem Acquired hammer toe of left foot ([id number] ) Other hammer toe(s) (acquired), left foot (M20.42) Active confirmed Problem Polyneuropathy due to type 2 diabetes mellitus (474851282) Type 2 diabetes mellitus with polyneuropathy (E11.42) Active confirmed Vital Signs Blood pressure diastolic 70 mm Hg 01/30/2025 Height 5ft5in in 01/30/2025 Blood pressure systolic 120 mm Hg 01/30/2025 Weight 220 lbs 01/30/2025 BMI 36.61 kg/m2 01/30/2025 Encounters Encounter Location Date Provider Diagnosis [address] [address] 03/31/2024 Manju Perica Xerosis of skin L85. 3 ; Type 2 diabetes mellitus with polyneuropathy E11.42 and Tinea unguium B35.[address] [address] 06/13/2024 Manju Perica Xerosis of skin L85. 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 [address] 08/23/2024 Manju Perica Xerosis of skin L85. 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 [address] 11/10/2024 Manju Perica Tinea unguium B35.1 and Type 2 diabetes mellitus with polyneuropathy E11.[address] [address] 01/30/2025 Manju Perica Tinea unguium B35.1 and Type 2 diabetes mellitus with polyneuropathy E11.42 Assessments Encounter Date Diagnosis (ICD Code) Assessment Notes Treatment Notes Treatment Clinical Notes Section Notes 03/31/2024 Xerosis of skin (ICD-10 - L85.3) 06/13/2024 Tinea unguium (ICD-10 - B35.1) 06/13/2024 Xerosis of skin (ICD-10 - L85.3) 11/10/2024 Tinea unguium (ICD-10 - B35.1) 11/10/2024 Type 2 diabetes mellitus with polyneuropathy (ICD-10 - E11.42) 01/30/2025 Tinea unguium (ICD-10 - B35.1) 08/23/2024 Tinea unguium (ICD-10 - B35.1) 08/23/2024 Xerosis of skin (ICD-10 - L85.3) 08/23/2024 Type 2 diabetes mellitus with polyneuropathy (ICD-10 - E11.42) 01/30/2025 Type 2 diabetes mellitus with polyneuropathy (ICD-10 - E11.42) 06/13/2024 Type 2 diabetes mellitus with polyneuropathy (ICD-10 - E11.42) 03/31/2024 Type 2 diabetes mellitus with polyneuropathy (ICD-10 - E11.42) 03/31/2024 Tinea unguium (ICD-10 - B35.1) Plan Of Treatment Next Appt Details Provider Name:Manju gray, 04/24/2025 09:30:00 AM, [address] [place], [address], Insurance Providers Payer Name Payer Address Payer Phone Subscriber Number Group Number Insured Name Patient Relationship to Insured Coverage Start Date Coverage End Date [employer] 65 Medicare Preferred [address] [place] [address] [phone] [id number] Rand Delgado Self - patient is the insured Medical (General) History Medical History History ICD Code Arthritis Back,Hip,and Knee pain type II diabetes Hiatal hernia High blood pressure Numbness Reflux ( GERD) Joint implants/screws Surgical History Surgery Date(Month/Year) knee replacement, bilateral 2005, 2007 cervical spine 03/27/2013 gall bladder removal 04/29/2018 hip replacement 04/06/2023 spine surgery 05/24/24 Hospitalization History Reason Date(Month/Year) GI bleeding 02/02
--- OUTSIDE RECORDS SUMMARY | 2025-02-13 09:20 | XMS_ITS | Encounter Summary ---
Author Organization [facility] Address [address] [place] [address] Care Team Providers Care Ship Purser Name Role Phone Unavailable Primary Care Provider Unavailabl e Encounter Details Date Type Department Care Team (Late st Contact Info) Description 07/06/2024 Scanned Document [facility] [address] [place] [address] Obstetrics And Gynecology, Scan Social History Tobacco [...]
== END 2025-02-13 09:03 | disposition home or self-care (01) ==
LOC: HO.MAMMO 09:02
PROVIDERS: PCP Nurse Practitioner; Visit Provider Nurse Practitioner
DX: Z12.31 Encounter for screening mammogram for malignant neoplasm of breast (principal)
CPT/HCPCS: 77063; 77067

== ENCOUNTER → 2025-02-13 09:15 | Outpatient (BNV) | payer MEDICARE, SELFPAY | PROVIDERS: PCP Nurse Practitioner; Visit Provider Internal Medicine | DX: Z12.31 Encounter for screening mammogram for malignant neoplasm of breast (principal) | CPT/HCPCS: 77063; 77067 ==

== ENCOUNTER 2025-06-15 09:03 | Emergency (ER) | payer MEDICARE, SELFPAY ==
--- NOTE | 2025-06-15 | ECG_ITS ---
Test Reason : cp Blood Pressure : */* mmHG Vent. Rate : 105 BPM Atrial Rate : 105 BPM P-R Int : 188 ms QRS Dur : 88 ms QT Int : 346 ms P-R-T Axes : 52 -9 46 degrees QTcB Int : 457 ms Sinus tachycardia Possible Anterior infarct (cited on or before 09-Jan-2025) Abnormal ECG When compared with ECG of 13-Jan-2025 10:47, No significant change was found Referred By: Generic ED Physician Electronically Signed By: JAMES STANLEY
--- NOTE | ~2025-06-15 | CT_ITS ---
EXAMINATION: CT ANGIOGRAM CHEST CLINICAL INFORMATION: Chest pain, rule out PE. COMPARISON: CT chest 01/09/2025 TECHNIQUE: Multiple axial images were obtained through the chest after the administration of 65 mL of Omnipaque 350 intravenous contrast. Extensive vascular post-processing including two-dimensional and three-dimensional reformatted images were created and reviewed on an independent workstation. This CT examination was performed using dose optimization techniques as appropriate, variously including the following: *Automated exposure control *Adjustment of mA and/or kV according to patient size (this includes techniques or standardized protocols for targeted exams where dose is matched to indication/reason for exam; i.e. extremities or head) *Use of iterative reconstruction technique FINDINGS: QUALITY OF STUDY/CONTRAST BOLUS: Satisfactory. PULMONARY ARTERIES: No evidence of filling defects to suggest central or segmental pulmonary emboli. THORACIC AORTA: Normal caliber aorta. LUNG: Trachea and central airway are patent. Mild dependent atelectasis. Stable 5 mm nodule in the lingula.. PLEURA: No pleural effusion or pneumothorax. MEDIASTINUM: Normal heart size. No pericardial effusion. No hilar or mediastinal lymphadenopathy. No evidence of right heart strain CORONARY ARTERY CALCIFICATION: Present CHEST WALL/AXILLA: No axillary or internal mammary lymphadenopathy. OSSEOUS STRUCTURES: No acute or suspicious osseous abnormality. Thoracic spine spondylosis UPPER ABDOMEN: No acute findings No reflux of contrast into the hepatic veins to suggest elevated right heart pressures. CT/CT angio chest PE protocol IMPRESSION: No evidence of filling defects to suggest pulmonary embolism. 5 mm nodule in the lingula. This is stable as compared to the prior CT of 01/09/2025. According to the UPDATED 2017 Fleischner Society recommendations, the advised follow-up imaging for solid nodules < 6 mm is: LOW RISK PATIENT: No routine follow-up. HIGH RISK PATIENT: Optional CT at 12 months. VTE: negative IMPRESSION: Unremarkable examination. Fleischner guidelines were followed. Electronically signed by: Santhosh Rodriguez MD 06/15/2025 01:27 PM [facility]
--- NOTE | ~2025-06-15 | XR_ITS ---
EXAMINATION: XR CHEST 2 VIEWS HISTORY: chest pain COMPARISON: Comparison is made with the prior examination dated 01/09/2025. FINDINGS: PA and lateral views of the chest are submitted. The lungs are expanded and clear. There is no pleural effusion, pneumothorax, or pulmonary vascular congestion. The heart is normal in size. There is mild degenerative disc disease of the spine. XR/XR chest 2V IMPRESSION: No acute cardiopulmonary abnormality. Electronically signed by: Pedro Luis Mejias MD 06/15/2025 11:09 AM [facility]
[2025-06-15 09:13] VITALS: BP 154/79; PULSE 105; RESP 18; TEMP 36.3; O2SAT 96; BMI 36.8
[2025-06-15 09:44] LABS: Hematocrit 45.4 % (37.0-47.0); Hemoglobin 14.9 g/dl (12.0-16.0); Imm Gran Abs Auto 0.19 X10*3/uL (0.00-0.03); Imm Gran Pct Auto 1.3 % (0.0-0.4); Lymphocytes Absolute Auto 2.2 X10*3/uL (1.2-4.9); MANUAL DIFF FLAG NO; Mean Corpuscular HGB Conc 32.8 g/dl (31.0-35.0); Mean Corpuscular Hemoglobin 27.9 pg (27.0-33.0); Mean Corpuscular Volume 85.0 fL (80.0-98.0); NRBC Abs Auto 0.000 X10*3/uL (0.0-0.012); NRBC Pct Auto 0.0 /100WBC (0.0-0.2); Platelet Count 288 X10*3/uL (160-400); Red Blood Count 5.34 X10*6/uL (4.20-5.50); White Blood Count 15.1 X10*3/uL (4.8-10.8)
[2025-06-15 09:51] LABS: INTERNATIONAL NORM RATIO 0.9 (0.9-1.1); Prothrombin Time 11.2 SEC (11.2-13.5)
[2025-06-15 10:07] LABS: Alanine Aminotransferase 22 U/L (0-31); Albumin Level 4.1 g/dL (3.5-5.0); Alkaline Phosphatase 99 U/L (39-117); Anion Gap 12 (12-20); Aspartate Amino Transferase 21 U/L (5-31); Blood Urea Nitrogen 19 mg/dL (9-16); Calcium 9.8 mg/dL (8.4-10.2); Carbon Dioxide 22 mmol/L (22-29); Chloride 109 mmol/L (96-108); Creatinine Clr Calc Pharmacy 75.3; Estimated Glomerular Filt Rate > 60; Magnesium 1.5 mg/dL (1.6-2.6); Potassium 4.1 mmol/L (3.3-5.1); Sodium 139 mmol/L (135-145); Total Protein 7.7 g/dL (6.5-8.0)
[2025-06-15 10:20] LABS: Troponin-I High Sensitivity < 2.7 ng/L (<3.5-17.0)
--- NOTE | 2025-06-15 11:14 | ED_ITS ---
HPI - Chest Pain General Chief Complaint: Chest Pain Stated Complaint: CP Time Seen by Provider: 06/15/25 11:00 Source: patient Mode of arrival: ambulatory Limitations: no limitations History of Present Illness HPI narrative: This is a 69 years old female patient presented to the emergency department complaining of chest pain which is pleuritic in nature worse she take a deep breath she has a history of diabetes, she has a history of superficial thrombophlebitis in the legs history of GI bleeding. MD complaint: chest pain Onset (ago): hour(s) (4) Timing of current episode: now resolved Onset: during rest Pain location: substernal Pain radiation: none Severity: moderate Quality: tightness Relieving factors: nothing Exacerbating factors: nothing Context: recent illness Related Data Home Medications ?Medication ?Instructions ?Recorded ?Confirmed amitriptyline 50 mg tablet 50 mg PO BEDTIME 04/22/21 0 01/13/25 lisinopril 10 mg tablet 10 mg PO DAILY 04/22/2112/03 metoprolol succinate 100 mg 100 mg PO DAILY 04/22/21 0 01/13/25 tablet,extended release 24 hr atorvastatin 10 mg tablet 10 mg PO BEDTIME 06/21/23 omeprazole 20 mg capsule,delayed 20 mg PO BID@1200,210 0 10/04/23 01/13/25 release nebulizers 01/10/24 ammonium lactate 12 % topical cream 1 appl topical BID PRN irritated 01/13/25 01/13/25 skin calcium carbonate 500 mg PO DAILY 01/13/2512/03 cholecalciferol (vitamin D3) 25 25 mcg PO DAILY 01/13/25 mcg (1,000 unit) tablet (Vitamin D3) cyclobenzaprine 10 mg tablet 10 mg PO BID PRN Pain 12/0301/13/25 dulaglutide 3 mg/0.5 mL 3 mg subcut PALACIO@0900 01/13/25 01/13/25 subcutaneous pen injector (Trulicity) lactobacillus combination no.4 3 3,000 mmu cells PO DA NINI 01/13/25 01/13/25 billion cell capsule (Probiotic) melatonin 5 mg tablet 5 mg PO BEDTIME 01/13/2512/03 metformin 500 mg tablet,extended 500 mg PO DAILY@1700 01/13/25 01/13/25 release 24 hr multivitamin 1 tab PO DAILY 01/13/25 07/12/03 oxycodone 5 mg tablet 5 mg PO Q6H PRN severe pain 01/13/25 01/13/25 Allergies Allergy/AdvReac Type Severity Reaction Status Date / Time No Known Allergies Allergy Verified 06/15/25 09:16 Review of Systems 2 Constitutional: Constitutional: Reports no additional constitutional complaints Cardiovascular: Cardiovascular: Reports as per [facility] Past Medical History Attestation statement: The following information was validated with the patient. Source: unable to obtain Medical History Tobacco dependence Pulmonary nodules COPD (chronic obstructive pulmonary disease) Chronic bronchitis Acute arthritis Fluttering heart Hypertension Obesity Diabetes type 2, controlled Surgical History History of hip surgery History of bilateral knee replacement H/O cervical spine surgery Family History Family History Mother Breast CA Diabetes HTN (hypertension) Paternal Grandmother Breast CA Social History Social History Household Members: Spouse Housing: House Are you a primary vision care associate to a significant other at home: No Do you presently have visiting nurse or other home services: No Alcohol intake: never Patient Tobacco Use Status: Current everyday Tobacco user Tobacco use type: Cigarette Cigarette Packs Per Day: 0.5 Cigarettes Per Day: 10.0 Years Smoked: 35 Second Hand Smoke Exposure: No Advance Directives: No Advance Directives Information Provided: Yes Do you have a plan to hurt others: No Plan service: No Current occupational status: retired Sexual orientation: Straight/Heterosexual Gender identity: Female Physical Exam 2 Exam: Exam: No acute distress comfortable Vital Signs: Vital Signs: Last Vital Signs Temp 98.3 F 06/15/25 12:12 Pulse 82 06/15/25 12:12 Resp 16 06/15/25 12:12 BP 125/69 06/15/25 12:12 Pulse Ox 94 06/15/25 12:12 O2 Del Method Room Air 06/15/25 12:12 BMI result Body Mass Index 36.8 Const: General: cooperative Nutritional Appearance: well nourished O rientation/consciousness: patient oriented x3 HEENT: Head: Yes normal to inspection Ears: hearing grossly normal bilaterally General nose exam: Normal external nose present Mouth: Normal oral and palatal mucosa present Throat: Yes posterior oropharynx normal Neck: Neck: Yes normal visual inspection Chest: Chest palpation & inspection: normal inspection of the chest Resp: Effort & Inspection: normal respiratory effort Auscultation: clear to auscultation bilaterally Cardio: Jugular venous distension: no JVD Rate: regular rate Rhythm: r egular rhythm GI: Inspection: Yes normal to inspection Palpation (GI): Soft to palpation Skin: General skin exam: no rashes or lesions noted and elasticity normal Neuro: General: patient oriented x3 Medications Administered Discontinued Medications Generic Name Dose Route Start Last Admin Trade Name Freq PRN Reason Stop Dose Admin Iohexol 100 ml 06/15/25 12:34 06/15/25 12:34 Iohexol 350 Mg/Ml 100 Ml Infus..Btl IV 06/15/25 12:35 65 ml ONCE ONE Administration Medical Decision Making Medical Decision Making [facility] Narrative: Patient presented with chest pain we will obtain labs EKG 14:50 the patient is feeling much better she has no chest pain now workup is negative including CT chest which was negative for pulmonary emboli, delta troponin is flat. ACS has been ruled out B dissection has been ruled out I think she can be discharged home at this point Differential Diagnosis Differential Diagnoses: The differential diagnosis associated with the presentation includes ACS/atypical chest pain/chest wall pain Admission/Observation Consideration of admission/observation: Escalation of care including admission/observation considered Lab Data [facility] Lab Attestation statement: I reviewed the patient's lab results. 06/15/25 09:39 06/15/25 09:39 Labs: Lab Results 06/15/25 06/15/25 Range/Units 09:39 13:36 WBC 15.1 H (4.8-10.8) X10*3/uL RBC 5.34 (4.20-5.50) X10*6/uL Hgb 14.9 (12.0-16.0) g/dl Hct 45.4 (37.0-47.0) % MCV 85.0 (80.0-98.0) fL MCH 27.9 (27.0-33.0) pg MCHC 32.8 (31.0-35.0) g/dl RDW 14.2 (11.0-16.0) % Plt Count 288 (160-400) X10*3/uL MPV 8.5 L (9.4-12.3) fL Immature Gran % (Auto) 1.3 H (0.0-0.4) % Neut % (Auto) 76.8 H (45-73) % Lymph % (Auto) 14.7 L (20-40) % Preble % (Auto) 4.9 (2-11) % Eos % (Auto) 1.7 (0-4) % Baso % (Auto) 0.6 (0-2) % Lymph # (Auto) 2.2 (1.2-4.9) X10*3/uL Preble # (Auto) 0.7 (0.1-1.2) X10*3/uL Eos # (Auto) 0.3 (0.0-0.4) X10*3/uL Baso # (Auto) 0.1 (0.0-0.2) X10*3/uL Abs Immat Gran (auto) 0.19 H (0.00-0.03) X10*3/uL Absolute Neuts (auto) 11.6 H (2.0-8.3) x10*3/uL Absolute Nucleated RBC 0.000 (0.0-0.012) X10*3/uL Nucleated RBC % (auto) 0.0 (0.0-0.2) /100WBC PT 11.2 (11.2-13.5) SEC INR 0.9 (0.9-1.1) Sodium 139 (135-145) mmol/L Potassium 4.1 (3.3-5.1) mmol/L Chloride 109 H (96-108) mmol/L Carbon Dioxide 22 (22-29) mmol/L Anion Gap 12 (12-20) BUN 19 H (9-16) mg/dL Creatinine 0.85 (0.5-1.4) mg/dL Estim Creat Clear Calc 75.3 Estimated GFR > 60 Random Glucose 167 H (60-115) mg/dL Calcium 9.8 D (8.4-10.2) mg/dL Magnesium 1.5 L (1.6-2.6) mg/dL Total Bilirubin 0.2 (0.0-1.0) mg/dL AST 21 (5-31) U/L ALT 22 (0-31) U/L Alkaline Phosphatase 99 (39-117) U/L Troponin I High Sens < 2.7 < 2.7 (<3.5-17.0) ng/L Total Protein 7.7 (6.5-8.0) g/dL Albumin 4.1 (3.5-5.0) g/dL Independent Interpretation I performed an independent interpretation of an: EKG Interpretation: Normal sinus rhythm [address]-T changes no ischemic Radiology Impression Discussion of test interpretation with radiology: I have reviewed the radiologist's reading. Radiologist Impression: CORONARY ARTERY CALCIFICATION: Present CHEST WALL/AXILLA: No axillary or internal mammary lymphadenopathy. OSSEOUS STRUCTURES: No acute or suspicious osseous abnormality. Thoracic spine spondylosis UPPER ABDOMEN: No acute findings No reflux of contrast into the hepatic veins to suggest elevated right heart pressures. CT/CT angio chest PE protocol IMPRESSION: No evidence of filling defects to suggest pulmonary embolism. 5 mm nodule in the lingula. This is stable as compared to the prior CT of 01/09/2025. According to the UPDATED 2017 Fleischner Society recommendations, the advised follow-up imaging for solid nodules < 6 mm is: LOW RISK PATIENT: No routine follow-up. HIGH RISK PATIENT: Optional CT at 12 months. VTE: negative IMPRESSION: Unremarkable examination. Fleischner guidelines were followed. Electronically signed by: Santhosh Rodriguez MD 06/15/2025 01:27 PM [facility] [place] [place] Discharge Plan Discharge Clinical Impression: Chest pain Qualifiers: Chest pain type: unspecified Qualified Code(s): R07.9 - Chest pain, unspecified Patient Disposition: Home, Self-Care Instructions: Chest Pain (DC) Additional Instructions: Follow-up with your primary care physician, return to the emergency room if worse Prescriptions: No Action cyclobenzaprine 10 mg tablet 10 mg PO BID PRN (Reason: Pain) metformin 500 mg tablet extended release 24 hr 500 mg PO DAILY@1700 oxycodone 5 mg tablet 5 mg PO Q6H PRN (Reason: severe pain) multivitamin Tablet 1 tab PO DAILY calcium carbonate 500 mg calcium (1,250 mg) Tablet 500 mg PO DAILY ammonium lactate 12 % cream 1 appl topical BID PRN (Reason: irritated skin) cholecalciferol (vitamin D3) [Vitamin D3] 25 mcg (1,000 unit) Tablet 25 mcg PO DAILY melatonin 5 mg Tablet 5 mg PO BEDTIME Trulicity 3 mg/0.5 mL pen injector 3 mg subcut PALACIO@0900 Probiotic 3 billion cell Capsule 3,000 mmu cells PO DAILY Rx Instructions: administer with a meal metoprolol succinate 100 mg tablet extended release 24 hr 100 mg PO DAILY amitriptyline 50 mg tablet 50 mg PO BEDTIME lisinopril 10 mg tablet 10 mg PO DAILY atorvastatin 10 mg tablet 10 mg PO BEDTIME (DME) nebulizers Misc See Rx Instructions .ROUTE Rx Instructions: As directed omeprazole 20 mg capsule,delayed release(DR/EC) 20 mg PO BID@1200,2100 Referrals: Tramaine Yan NP [Primary Care Provider, Medical] - 06/18/25 Print Language: Palestinian
[2025-06-15 12:12] VITALS: BP 125/69; PULSE 82; RESP 16; TEMP 36.8; O2SAT 94
[2025-06-15] MEDS: iohexoL 350 MG/ML 100 ML INFUS..BTL IV (12:34)
[2025-06-15 14:07] LABS: Troponin-I High Sensitivity < 2.7 ng/L (<3.5-17.0)
[2025-06-15 15:06] VITALS: BP 130/79; PULSE 81; RESP 18; O2SAT 98
[2025-06-15 15:09] VITALS: BP 130/79; PULSE 81; RESP 18; TEMP -17.7; TEMP 0; O2SAT 98
== END 2025-06-15 15:11 | disposition home or self-care (01) ==
PROVIDERS: Physician Assistant; Emergency Provider Emergency Medicine; PCP Nurse Practitioner
DX: R07.89 Other chest pain (principal); R07.1 Chest pain on breathing; R11.0 Nausea; Z79.899 Other long term (current) drug therapy; F17.210 Nicotine dependence, cigarettes, uncomplicated
CPT/HCPCS: 36415; 71046; 71275; 80053; 83735; 84484; 85025; 85610; 93005; 96360; 99284; 99285; Q9967

== ENCOUNTER → 2025-06-15 09:08 | Outpatient (BNV) | payer MEDICARE, SELFPAY | PROVIDERS: Emergency Provider Emergency Medicine; PCP Nurse Practitioner; Visit Provider Internal Medicine | DX: R00.0 Tachycardia, unspecified (principal) | CPT/HCPCS: 93010 ==

== ENCOUNTER → 2025-06-15 10:49 | Outpatient (BNV) | payer MEDICARE, SELFPAY | PROVIDERS: Emergency Provider Emergency Medicine; PCP Nurse Practitioner; Visit Provider Radiology Diagnostic Radiology | DX: R07.9 Chest pain, unspecified (principal) | CPT/HCPCS: 71046; 71275 ==

== ENCOUNTER 2025-07-10 07:58 | Outpatient (AMB) | payer MEDICARE, SELFPAY ==
--- NOTE | 2025-07-10 08:02 | A.OFFVIS_ITS ---
Vital Signs 07/10/25 08:04 Height 5 ft 5 in Weight 201 lb BMI 33.4 BP 116/80 Intake Visit Reasons: annual Behavioral Intervention Specialist Required: No Information Interpreted: non-clinical & clinical Performance Management Consultant: Performance Management Consultant Present (Kari ASIF) Accompanied by: Self / Same As Patient Allergies No Known Allergies Allergy (Verified 07/10/25 08:06) Post menopausal: Yes HPI Comments Details: Presenting for annual exam. No complaints. Last Pap/HPV was negative in 05/01 Last Mammogram was BI-RADS 2 in Last Colonoscopy was in 02/02, the recommendation was to repeat in 3 years Last DEXA scan was done in 08/04 [facility] Medical History Tobacco dependence Pulmonary nodules COPD (chronic obstructive pulmonary disease) Chronic bronchitis Acute arthritis Fluttering heart Hypertension Obesity Diabetes type 2, controlled Surgical History History of hip surgery History of bilateral knee replacement H/O cervical spine surgery Family History Mother Breast CA Diabetes HTN (hypertension) Paternal Grandmother Breast CA Social History Household Members: Spouse Housing: House Are you a primary certified social workers in health care to a significant other at home: No Do you presently have visiting nurse or other home services: No Alcohol intake: never Patient Tobacco Use Status: Current everyday Tobacco user Tobacco use type: Cigarette Cigarette Packs Per Day: 0.5 Cigarettes Per Day: 10.0 Years Smoked: 35 Second Hand Smoke Exposure: No service: No Current occupational status: retired Sexual orientation: Straight/Heterosexual Gender identity: Female Female Reproductive History Menstrual Age of Menarche: 15 Date of last pap smear: 04/23/21 Date of Mammogram: 02/13/25 Review of Systems Const All systems reviewed & are unremarkable except as noted in HPI and below Card Reports as per HPI Resp Reports as per HPI GI Reports as per HPI and Reports no additional complaints Reports as per HPI Physical Exam Vital Signs: BMI result Body Mass Index 33.4 Const General: cooperative, healthy appearing and comfortable Chest Chest palpation & inspection: normal inspection of the chest and normal palpation of entire chest wall Breast/axilla inspection: normal inspection of the breasts and normal inspection of the axillae Breast/axilla palpation: normal palpation of the breasts, normal palpation of the axillae and no axillary lymphadenopathy Resp Effort & Inspection: normal respiratory effort Auscultation: clear to auscultation bilaterally Percussion: percussion normal Cardio Palpation: normal PMI Rate: regular rate Rhythm: regular rhythm Heart sounds: no murmurs and no rubs Peripheral pulses: Peripheral pulses 2+ throughout GI Inspection: Yes normal to inspection Palpation (GI): Soft to palpation, nontender, no guarding, not rigid and No hepatosplenomegaly present Percussion: Yes normal to percussion Auscultation: normal bowel sounds Rectal Exam - Female: deferred General: Yes bladder normal to palpation External Female Exam: No lesion Speculum Exam - Vagina: normal appearance of the vagina, normal palpation, normal vaginal discharge and not erythematous Speculum Exam - Cervix: normal appearance of the cervix and normal palpation Bimanual exam- vagina & uterus: normal bimanual exam, normal palpation, uterine size normal, bladder normal to palpation, consistency normal and normal palpation Bimanual Exam- Adnexa, other: normal adnexae, no masses and no tenderness Assessment & Plan Assessment & Plan (1) Well woman exam: Code(s): Z01.419 - Encounter for gynecological examination (general) (routine) without abnormal findings Category: Medical Plan: Co testing not indicated . Counseled the patient about the recommended dietary allowance of 1200 mg of Calcium & 800 IU of vitamin D. Instructions given the patient to schedule next screening Mammogram in 03/06. Will order DEXA scan . The patient was instructed to perform monthly self-breast exams and to schedule a 2 week DEXA scan follow-up appointment and an annual exam in a year; All questions answered and the patient verbalized understanding. Orders: Orders XR DEXA axial skeleton Today Z78.0 - Asymptomatic menopausal state Coding Level of Care Code Est Pt Prev Care >65y(11675) Diagnoses Well woman exam Z01.419
[2025-07-10 08:04] VITALS: BP 116/80; BMI 33.4
--- OUTSIDE RECORDS SUMMARY | 2025-07-10 09:21 | XMS_ITS | Clinical Summary ---
Author Organization [facility] [address] [facility] Address [address] [place] [address] Phone Care Team Providers Care Compressor Operator Portable Name Role Phone Tramaine Yan NP Primary Care Provider [phone] Allergies No known active allergies Medications amitriptyline (ELAVIL) 50 mg tablet Take by mouth at bedtime. Active docusate sodium (COLACE) 100 mg capsule Take 1 capsule (100 mg total) by mouth 2 (two) times a day. Active apixaban (ELIQUIS) 5 mg tablet Take 1 tablet (5 mg total) by mouth 2 (two) times a day. Active lisinopriL (PRINIVIL,ZESTR IL) 10 mg tablet Take 1 tablet (10 [...] mouth 1 (one) time each day. Active fluticasone-michelle meterol (ADVAIR DISKUS) 250-50 mcg/dose diskus inhaler Inhale 1 puff by mouth 2 (two) times a day. Rinse mouth with water after use to reduce aftertaste and incidence of candidiasis. Do not swallow. Active tiZANidine (ZANAFLEX) 2 mg tablet Take 1 tablet (2 mg total) by mouth every 8 (eight) hours. 05/24/20 24 Active HYDROcodone-donovan taminophen (NORCO) 10-325 mg per tablet TAKE 1 TABLET BY MOUTH EVERY 6 HOURS FOR 7 DAYS NEEDED FOR PAIN 06/07/20 24 Active cyclobenzaprine (FLEXERIL) 10 mg tablet Take 1 tablet (10 mg total) by mouth 2 (two) times a day if needed. 01/05/20 25 Active FreeStyle [place] Lite monitoring kit See administration instructions. 04/06/20 25 Active blood sugar diagnostic (FreeStyle Lite Strips) test strip USE TO TEST ONCE DAILY DIRECTED 04/06/20 25 Active atorvastatin (LIPITOR) 10 mg tablet 05/05/20 25 Active ammonium lactate (AMLACTIN) 12 % cream APPLY 1 APPLICATION TO AFFECTED AREA EXTERNALLY TWICE A DAY TO DRY AREAS OF SKIN ON FEET 30 DAYS 03/22/20 25 Active MULTIVITAMIN ORAL Take by mouth. Activ e calcium carbonate/vitam in D3 (CALCIUM 500 + D ORAL) Take by mouth 2 (two) times a day. Active Lactobacillus acidophilus (PROBIOTIC ORAL) Take by mouth. Activ e dicyclomine (BENTYL) 20 mg tablet Take 1 tablet (20 mg total) by mouth 4 (four) times a day if needed (Abdominal cramping). 360 tablet 05/17/20 25 026 Active colestipoL (COLESTID) 1 gram tabletIndicatio ns:Diarrhea, unspecified type,Chronic active gastritis Take 1 tablet (1 g total) by mouth 2 (two) times a day. 180 each 3 06/08/20 25 026 Active colestipoL (COLESTID) 1 gram tabletIndicatio ns:Diarrhea, unspecified type,Chronic active gastritis Take 1 tablet (1 g total) by mouth 2 (two) times a day. 180 each 3 06/08/20 25 026 Active Encounters Date Type Department Care Team Description 05/16/2025 8:00 AM EST Consult Gastroenterology - [address] [address] Tahira Garcia NP Diarrhea, unspecified type (Primary Dx); History of colon polyps; Chronic active gastritis from Last 3 Months Social History Tobacco Use Types Packs/Day Years Used Date Smoking Tobacco: Never Assessed Comments Unknown Sex and Gender Information Value Date Recorded Sex Assigned at Not on file Legal Sex Female 12:46 PM EST Gender Identity Not on file Sexual Orientation Not on file Last Filed Vital Signs Vital Sign Reading Time Taken Comments Blood Pressure 120/80 05/16/2025 8:22 AM EST Pulse 97 05/16/2025 8:22 AM EST Temperature - - Respiratory Rate - - Oxygen Saturation 97% 05/16/2025 8:22 AM EST Inhaled Oxygen Concentration - - Weight 101 kg (222 lb) 05/16/2025 8:22 AM EST Height 165.1 cm (5' 5 ) 05/16/2025 8:22 AM EST Body Mass Index 36.94 05/16/2025 8:22 AM EST Plan of Treatment Upcoming Encounters Date Type Department Care Team (Late st Contact Info) Description 12/21/2025 8:20 AM EDT Office Visit Gastroenterology - [address] [phone] Tahira Garcia NP [address] [address] Health Maintenance Due Date Last Done Comments Breast Cancer Screening 1955 Drug Screen 1955 Naloxone Order 1955 Opioid Substance Agreement 1957 Pain Assessment 1957 DTaP,Tdap,and Td Vaccines (1 - Tdap) 1976 Pneumococcal Vaccine: 50+ Years (1 of 1 - PCV) 2007 Falls Risk Assessment 04/18/2024 Hepatitis C Screening 04/18/2024 Osteoporosis Screening (Bone Density Screening) 04/18/2024 Social Influencers of Health Screening 04/18/2024 Depression Screening 07/12/2024 COVID-19 Vaccine ( season) 2025 04/30/2025, 05/19/2024, 05/19/2023, Additional history exists Colorectal Cancer Screening: Colonoscopy 12/22/2033 12/23/2023, 03/12/2020, 10/08/2014, Additional history exists RSV Immunization Adult Patients Completed 05/19/2023 Influenza Vaccine Completed 04/06/2025, , 06/02/2022, Additional history exists Zoster Vaccines Completed 04/30/2025, 05/19/2024 HIB Vaccines Aged Out No longer eligi [...] to complete this topic RSV Immunization Patients Under 20 months Aged Out No longer eligible based on patient's age to complete this topic Varicella Vaccines Aged Out No longer eligible based on patient's age to complete this topic Procedures Procedure Name Priority Date/Time Associated Diagnosis Comments COLONOSCOPY Routine 12/23/2023 10:24 AM EDT from Last 3 Months or Most Recently Relevant to Health Maintenance Results * COLONOSCOPY (12/23/2023 10:24 AM EDT) Anatomical Region Laterality Modality Endoscopy us Historical Provider GI~PROCEDURE ORDERABLES F inal Result from Last 3 Months or Most Recently Relevant to Health Maintenance Insurance [facility] Care Teams Compressor Operator Portable Relationship Specialty Start Date End Date Tramaine Yan NP [facility] [address] [place] [address] PCP - General Nurse Practitioner 05/16/25
--- OUTSIDE RECORDS SUMMARY | 2025-07-10 09:21 | XMS_ITS | Encounter Summary ---
Author Organization [facility] Address [address] [place] [address] Care Team Providers Care Egg Gatherer Name Role Phone Unavailable Primary Care Provider Unavailabl e Encounter Details Date Type Department Care Team (Late st Contact Info) Description 07/06/2024 Scanned Document [facility] [address] [place] [address] Obstetrics And Gynecology, Scan Social History Tobacco [...]
--- OUTSIDE RECORDS SUMMARY | 2025-07-10 09:21 | XMS_ITS | Clinical Summary ---
Author Organization [facility] Address [address] [place] [address] Care Team Providers Care Dispute Resolution Analyst Name Role Phone Unavailable Primary Care Provider Unavailabl e Social History Tobacco Use Types Packs/Day Years Used Date Smoking Tobacco: Never Assessed Comments Unknown Sex and Gender Information Value Date Recorded Sex Assigned at Not on file Legal Sex Female 6:58 PM EST Gender Identity Not on file Sexual Orientation Not on file Plan of Treatment Health Maintenance Due Date Last Done Comments Advance Care Planning 1955 Hepatitis C Virus Screening 1955 DTaP/Tdap/Td Vaccines (1 - Tdap) 1976 Pneumococcal Vaccines 50+ (1 of 1 - PCV) 2007 Zoster (Shingles) Vaccine (1 of 2) 2007 COVID-19 Vaccine ( - 2024-2 6 season) 2025 RSV Vaccine 50 years and old er and Patients (1 - 1-dose 75+ series) 2032 Hepatitis B Vaccines Aged Out No long er eligible based on patient's age to complete this topic
--- OUTSIDE RECORDS SUMMARY | 2025-07-10 09:21 | XMS_ITS | Patient Health Record ---
[facility] Address [address] [facility] [place] [address] Care Team Providers Care Service Counter Cashier Name Role Phone Tramaine Yan Primary Care Provider Manju [place] Unavailable [phone] Allergies Allergen (clinical drug ingredient) Drug/Non Drug Allergy documented on EMR Reaction Allergy Type Onset Date Status naproxen Naproxen GI Bleed Drug Allergy Active Results Component Value Reference Range Notes HEMOGLOBIN A1C (GLYCOHEMOGLO BIN) Reviewed date:08/23/2024 09:27:09 AM Interpretation: Performing Lab: Notes/Report: HEMOGLOBIN A1C % (HH) 6.5 HEMOGLOBIN A1C (GLYCOHEMOGLO BIN) Reviewed date:11/10/2024 01:49:16 PM Interpretation: Performing Lab: Notes/Report: HEMOGLOBIN A1C % (HH) 7.9 HEMOGLOBIN A1C (GLYCOHEMOGLO BIN) Reviewed date:04/24/2025 09:31:47 AM Interpretation: Performing Lab: Notes/Report: HEMOGLOBIN A1C % (HH) 6.5 Reason For Referral No Information Medications Medication SIG (Take, Route, Frequency, Duration) Notes Start Date End Date Status Omeprazole 20 MG TAKE 1 CAPSULE BY MOUTH TWICE A DAY Oral; Duration: 90 Days Active Metoprolol Succinate ER 100 MG TAKE 1 TABLET BY MOUTH EVERY DAY Oral; Duration: 90 Days Active metFORMIN HCl 500 MG 1 tablet with a paradise l Orally Once a day Not-Taking Amitriptyline HCl 50 MG TAKE 1 TABLET BY MOUTH AT BEDTIME Oral; Duration: 90 Days Active traMADol HCl 50 MG 1 tablet as needed Orally Once a day Not-Taking Trulicity 3 MG/0.5ML as directed Subcutaneous; Duration: 28 days Active Roflumilast Not-Taki ng Atorvastatin Calcium 10 MG TAKE 1 TABLET BY MOUTH EVERYDAY AT BEDTIME Oral; Duration: 30 Days Active Lidocaine 5 % 1 patch remove after 12 hours Externally Once a day Not-Taking Naproxen 440mg 2x per day Not-Taking albuterol Not-Taking Colace 100 MG 1 capsule as needed Orally Once a day Active Wixela Inhub Not-Renato ing Multivitamin Active Eliquis Not-Taking Probiotic Active Ammonium Lactate 12 % 1 application to affected area Externally Twice a day to dry areas of skin on feet; Duration: 30 days 08/23/2024 Active Vitamin D Active Extra Depth Orthopedic Shoes (1 Pair) with Customized Heat Molded Multidensity Innersoles (3 Pair) as directed Dx: NIDDM/Polyneuropathy (E11.42), Hammertoe Foot Deformity (M20.41,M20.42), Preulcerative Skin Lesion(s) (L85.1 03/02/2023 Active metFORMIN HCl 500 MG 1 tablet with a paradise l Orally Once a day Active Lisinopril 10 MG Oral; Duration: 90 Days Active Tylenol Active Extra Depth Orthopedic Shoes (1 Pair) with Customized Heat Molded Multidensity Innersoles (3 Pair) Dx: NIDDM/Polyneuropathy (E11.42), Hammertoe Foot Deformity (M20.41,M20.42), Preulcerative Skin Lesion(s) (L85.1); Duration: 365 days 04/24/2025 Active Immunizations Vaccine Route Administration Date Status Comme nts Influenza Unknown 03/16/2022 Administered Influenza Unknown 05/12/2023 Administered Influenza Unknown 05/12/2024 Administered Influenza Unknown 04/06/2025 Administered Social History Tobacco Use: Social History Observation Description Date Details (start date - stop date) Current Smoker NA - NA Tobacco use other than smoking: Question Answer Notes Are you an other tobacco user? No Tobacco Control (Standard) Question Answer Notes Tobacco use: Current smoker How often do you smoke cigarettes? Every day How many cigarettes a day do you smoke? 6-10 How soon after you wake up d o you smoke your first cigarette? 6-30 minutes Are you interested in quitting? Thinking about q uitting Additional Findings: Tobacco user Light cigarett e smoker (1-9 cigs/day) AUDIT-C (Standard) Question Answer Notes Did you have a drink containing alcohol in the p ast year? No Points 0 Interpretation Negative Problems Problem Type SNOMED Code ICD Code Onset Dates Problem Status W/U Status Risk Notes Problem Acquired hammer toe of right foot (4008808540702999 ) Other hammer toe(s) (acquired), right foot (M20.41) Active confirmed Problem Acquired hammer toe of left foot ([id number] ) Other hammer toe(s) (acquired), left foot (M20.42) Active confirmed Problem Polyneuropathy due to type 2 diabetes mellitus (739852625) Type 2 diabetes mellitus with polyneuropathy (E11.42) Active confirmed Vital Signs Blood pressure diastolic 64 mm Hg 04/24/2025 Height 5ft 5in in 04/24/2025 Blood pressure systolic 110 mm Hg 04/24/2025 Weight 220 lbs 04/24/2025 BMI 36.61 kg/m2 04/24/2025 Encounters Encounter Location Date Provider Diagnosis [address] [address] 08/23/2024 Manju Hodges Xerosis of skin L85. 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 [address] 11/10/2024 Manju Perica Tinea unguium B35.1 and Type 2 diabetes mellitus with polyneuropathy E11.[address] [address] 01/30/2025 Manju Perica Tinea unguium B35.1 and Type 2 diabetes mellitus with polyneuropathy E11.[address] [address] 04/24/2025 Manju Perica Type 2 diabetes mellitus with polyneuropathy E11.42 ; Other hammer toe(s) (acquired), right foot M20.41 ; Tinea unguium B35.1 and Other hammer toe(s) (acquired), left foot M20.42 Assessments Encounter Date Diagnosis (ICD Code) Assessment Notes Treatment Notes Treatment Clinical Notes Section Notes 11/10/2024 Tinea unguium (ICD-10 - B35.1) 11/10/2024 Type 2 diabetes mellitus with polyneuropathy (ICD-10 - E11.42) 01/30/2025 Tinea unguium (ICD-10 - B35.1) 08/23/2024 Tinea unguium (ICD-10 - B35.1) 08/23/2024 Xerosis of skin (ICD-10 - L85.3) 04/24/2025 Other hammer toe(s) (acquired), right foot (ICD-10 - M20.41) Patient Educated with: DIABETIC FOOT CARE INSTRUCTIONS. pdf (DIABETIC FOOT CARE INSTRUCTIONS. pdf) 04/24/2025 Type 2 diabetes mellitus with polyneuropathy (ICD-10 - E11.42) 04/24/2025 Tinea unguium (ICD-10 - B35.1) 08/23/2024 Type 2 diabetes mellitus with polyneuropathy (ICD-10 - E11.42) 01/30/2025 Type 2 diabetes mellitus with polyneuropathy (ICD-10 - E11.42) 04/24/2025 Other hammer toe(s) (acquired), left foot (ICD-10 - M20.42) Plan Of Treatment Next Appt Details Provider Name:Manju gray, 07/17/2025 10:00:00 AM, [address] [place] [address], [phone], Insurance Providers Payer Name Payer Address Payer Phone Subscriber Number Group Number Insured Name Patient Relationship to Insured Coverage Start Date Coverage End Date [employer] 65 Medicare Preferred [address] [place] [address] [phone] [id number] Rand Delgado Self - patient is the [...]
== END 2025-07-10 08:23 | disposition home or self-care (01) ==
LOC: HO.HWS 07:58
PROVIDERS: PCP Physician Assistant Medical; Visit Provider Obstetrics & Gynecology
DX: Z01.419 Encounter for gynecological examination (general) (routine) without abnormal findings (principal)
CPT/HCPCS: 99397; 99459

== ENCOUNTER → 2025-07-10 07:58 | Outpatient (BNVA) | payer MEDICARE, SELFPAY | PROVIDERS: PCP Physician Assistant Medical; Visit Provider Obstetrics & Gynecology | DX: Z01.419 Encounter for gynecological examination (general) (routine) without abnormal findings (principal); Z71.89 Other specified counseling | CPT/HCPCS: 99397 ==